=== PATIENT | male | born 1960 | race Caucasian/White ===

== ENCOUNTER 2024-10-02 11:59 | Emergency (ER) | payer MEDICARE, SELFPAY ==
--- NOTE | ~2024-10-02 | CT_ITS ---
EXAMINATION: CT cervical spine wo con DATE: 10/02/2024 14:13 INDICATION: Neck pain TECHNIQUE: Computed tomography (CT) of the cervical spine was performed without intravenous contrast. Automated exposure control and iterative reconstruction technique were employed. The dose-length pro duct was 540.97 mGy-cm. COMPARISON: 10/09/2016 FINDINGS: 13 degrees cervical dextrocurvature. Sagittal alignment is normal. Vertebral body heights are normal. No fracture. Mild osteoarthritis at the atlantoaxial articulation. Interval progression of now moder ate disc height loss at C5-C6 and mild disc height loss at C3-C4, C4-C5 and C6-C7. Mild emphysema and biapical pleural-parenchymal scarring. The following disc levels are specifically discussed: C2-C3: There is mild bilateral uncovertebral joint osteoarthritis. There is mild bilateral facet matt nt osteoarthritis. There is minimal bilateral neural foraminal stenosis. There is no central canal st enosis. C3-C4: Disc is mildly bulging. There is mild right and moderate left uncovertebral joint osteoarthrit is. There is mild bilateral facet joint osteoarthritis. There is mild right and moderate left neural foraminal stenosis. There is mild central canal stenosis. C4-C5: Disc is mildly bulging. There is mild right and mild to moderate left uncovertebral joint oste oarthritis. There is mild bilateral facet joint osteoarthritis. There is mild bilateral neural forami nal stenosis. There is mild central canal stenosis. C5-C6: Disc is bulging. There is severe left and moderate to severe right uncovertebral joint osteoar thritis. There is mild bilateral facet joint osteoarthritis. There is moderate bilateral neural laura inal stenosis. There is mild central canal stenosis. C6-C7: There is mild bilateral uncovertebral joint osteoarthritis. There is mild bilateral facet join t osteoarthritis. There is no neural foraminal stenosis. There is no central canal stenosis. C7-T1: There is mild right uncovertebral joint osteoarthritis. There is altered left and mild to mode rate right facet joint osteoarthritis. There is no neural foraminal stenosis. There is no central can al stenosis. IMPRESSION: 1. Interval progression of mild to moderate cervical spondylosis. Reviewed, dictated and finalized at location B. OR TACKER
--- NOTE | ~2024-10-02 | XR_ITS ---
EXAMINATION: XR chest 2V 10/02/2024 14:25 INDICATION: Syncope. Hypertension. PROCEDURE: 2 view chest COMPARISON: No prior studies for comparison. FINDINGS: The lungs are clear. The cardiomediastinal silhouette is within normal limits. There are no pleural effusions. There is no pneumothorax suspected. IMPRESSION: 1: NO ACUTE CARDIOPULMONARY DISEASE. Reviewed, dictated and finalized at location A. ICE UPHOLSTERER
--- NOTE | ~2024-10-02 | CT_ITS ---
EXAMINATION: CT brain wo con DATE: 10/02/2024 14:13 INDICATION: Headache TECHNIQUE: Computed tomography (CT) of the head was performed without intravenous contrast. Sagittal and coronal reconstructions were performed. The mA was adjusted according to patient size. Iterative reconstruction technique was employed. The dose-length product was 681.00 mGy-cm. COMPARISON: head CT dated 10/09/2016 FINDINGS: No acute intracranial hemorrhage, acute infarction or abnormal extra axial fluid collection. Ventricl es are normal and symmetric. No mass/mass effect. The orbits, paranasal sinuses and mastoid air cells are normal. IMPRESSION: 1. Normal aging brain. No acute intracranial process. Reviewed, dictated and finalized at location B. OR BOILER OPERATOR
--- OUTSIDE RECORDS SUMMARY | 2024-10-02 12:01 | XMS_ITS | Encounter Summary ---
Author Organization [facility] Facility Care Team Providers Care Natural Resource Economist Name Role Phone Rebel Jin MD Primary Care Provider [phone] Nai Ramirez RUBBER GOODS FINISHER Primary Care Provider [phone] Rahul Marshall MD Primary Care Provider [phone] Nai Ramirez RUBBER GOODS FINISHER Unavailable [phone] Rebel Jin MD Primary Care Provider [phone] Nai Ramirez RUBBER GOODS FINISHER Primary Care Provider [phone] Nai Ramirez RUBBER GOODS FINISHER Primary Care Provider [phone] Nai Ramirez RUBBER GOODS FINISHER Primary Care Provider [phone] Vinh Chicas MD Unavailable Encounter Details Date Type Department Care Team (Latest Contact Info) Description 01/10/2016 Orders Only [facility] CLINCONV ProviderHailee MD [address] [place] [address] Social History Tobacco Use Types Packs/Day Years Used Date Smoking Tobacco: Former Sex and Gender Information Value Date Recorded Sex Assigned at Not on file Legal Sex Male 3:57 PM HANDS PARTER Gender Identity Male 01/08/2020 9:10 AM CDT Sexual Orientation Straight 01/08/2020 9: 10 AM CDT documented as of this encounter Plan of Treatment Not on file documented as of this encounter Procedures Procedure Name Priority Date/Time Associated Diagnosis Comments SCAN - LABS 02/02/2016 12:00 AM CDT documented in this encounter Results * SCAN - LABS (02/02/2016 12:00 AM CDT) Narrative 02/02/2016 12:00 AM CDT Ordered by an unspecified provider. us Historical Provider Final Res ult documented in this encounter Visit Diagnoses Not on filedocumented in this encounter Additional Health Concerns Infection Onset Date Last Indicated Resolved Time COVID: Suspected 10/16/2022 10/16/2022 10/16/2022 4:55 PM HANDS PARTER documented as of this encounter Care Teams Natural Resource Economist Relationship Specialty Start Date End Date Rebel Jin MD [facility] [facility] [place] [address] PCP - General 01/20/18 10/14/18 Nai Ramirez NP [address] [place] [address] [place] [address] PCP - General 10/15/18 04/27/19 Rahul Marshall MD [address] [place] [address] [place] [address] PCP - General 04/28/19 05/14/19 Rebel Jin MD [address] [place] [address] [place] [address] PCP - General Internal Medicine 05/15/19 10/06/19 Nai Ramirez NP [address] [place] [address] [place] [address] PCP - General 10/31/19 04/17/23 Nai Ramirez NP [address] [place] [address] PCP - General 10/07/19 10/30/19 Nai Ramirez, RUBBER GOODS FINISHER [address] [place] [address] PCP - General Internal Medicine 04/18/23 Vinh Chicas MD [address] [place] [address] PCP - Cardiology Cardiovascular Disease 06/03/23 Nai Ramirez, RUBBER GOODS FINISHER [address] [facility] [place] [address] 04/28/19 documented as of this encounter
--- OUTSIDE RECORDS SUMMARY | 2024-10-02 12:01 | XMS_ITS | Encounter Summary ---
Author Organization [facility] Facility Care Team Providers Care Appliance Painter And Refinisher Name Role Phone Rebel Jin MD Primary Care Provider [phone] Nai Ramirez PUBLIC RECORDS RESEARCHER Primary Care Provider [phone] Rahul Marshall MD Primary Care Provider [phone] Nai Ramirez PUBLIC RECORDS RESEARCHER Unavailable [phone] Rebel Jin MD Primary Care Provider [phone] Nai Ramirez PUBLIC RECORDS RESEARCHER Primary Care Provider [phone] Nai Ramirez PUBLIC RECORDS RESEARCHER Primary Care Provider [phone] Nai Ramirez PUBLIC RECORDS RESEARCHER Primary Care Provider [phone] Vinh Chicas MD Unavailable Encounter Details Date Type Department Care Team (Latest Contact Info) Description 05/08/2018 Orders Only [facility] CLINCONV ProviderHailee MD [address] [place] [address] Social History Tobacco Use Types Packs/Day Years Used Date Smoking Tobacco: Former Sex and Gender Information Value Date Recorded Sex Assigned at Not on file Legal Sex Male 3:57 PM BROKE MAN Gender Identity Male 01/08/2020 9:10 AM CDT Sexual Orientation Straight 01/08/2020 9: 10 AM CDT documented as of this encounter Plan of Treatment Not on file documented as of this encounter Procedures Procedure Name Priority Date/Time Associated Diagnosis Comments PROCEDURE - RESULT 04/29/2018 12 :00 AM CDT documented in this encounter Results * PROCEDURE - RESULT (04/29/2018 12:00 AM CDT) Narrative 04/29/2018 12:00 AM CDT Ordered by an unspecified provider. us Historical Provider Final Res ult documented in this encounter Visit Diagnoses Not on filedocumented in this encounter Additional Health Concerns Infection Onset Date Last Indicated Resolved Time COVID: Suspected 10/16/2022 10/16/2022 10/16/2022 4:55 PM BROKE MAN documented as of this encounter Care Teams Appliance Painter And Refinisher Relationship Specialty Start Date End Date Rebel Jin MD [facility] [address] PCP - General 01/20/18 10/14/18 Nai Ramirez NP [address] [place] [address] [place] [address] PCP - General 10/15/18 04/27/19 Rahul Marshall MD [address] [place] [address] [place] [address] PCP - General 04/28/19 05/14/19 Rebel Jin MD [address] [place] [address] [place] [address] PCP - General Internal Medicine 05/15/19 10/06/19 Nai Ramirez NP [address] [place] [address] [place] [address] PCP - General 10/31/19 04/17/23 Nai Ramirez NP [address] [facility] [address] [place] [address] PCP - General 10/07/19 10/30/19 Nai Ramirez, PUBLIC RECORDS RESEARCHER [address] [place] [address] PCP - General Internal Medicine 04/18/23 Vinh Chicas MD [address] [place] [address] PCP - Cardiology Cardiovascular Disease 06/03/23 Nai Ramirez, PUBLIC RECORDS RESEARCHER [address] [facility] [place] [address] 04/28/19 documented as of this encounter
--- OUTSIDE RECORDS SUMMARY | 2024-10-02 12:01 | XMS_ITS | Encounter Summary ---
Author Organization [facility] Facility Care Team Providers Care Welfare Worker Name Role Phone Rebel Jin MD Primary Care Provider [phone] Nai Ramirez SEWING SUPERVISOR Primary Care Provider [phone] Rahul Marshall MD Primary Care Provider [phone] Nai Ramirez SEWING SUPERVISOR Unavailable [phone] Rebel Jin MD Primary Care Provider [phone] aNi Ramirez SEWING SUPERVISOR Primary Care Provider [phone] Nai Ramirez SEWING SUPERVISOR Primary Care Provider [phone] Nai Ramirez SEWING SUPERVISOR Primary Care Provider [phone] Vinh Chicas MD Unavailable Encounter Details Date Type Department Care Team (Latest Contact Info) Description 01/14/2018 Orders Only [facility] CLINCONV ProviderHailee MD [address] [place] [address] Social History Tobacco Use Types Packs/Day Years Used Date Smoking Tobacco: Former Sex and Gender Information Value Date Recorded Sex Assigned at Not on file Legal Sex Male 3:57 PM LAB SCIENTIST Gender Identity Male 01/08/2020 9:10 AM CDT Sexual Orientation Straight 01/08/2020 9: 10 AM CDT documented as of this encounter Plan of Treatment Not on file documented as of this encounter Procedures Procedure Name Priority Date/Time Associated Diagnosis Comments SCAN - PATHOLOGY 01/16/2018 12:0 0 AM CDT documented in this encounter Results * SCAN - PATHOLOGY (01/16/2018 12:00 AM CDT) Narrative 01/16/2018 12:00 AM CDT Ordered by an unspecified provider. us Historical Provider Final Res ult documented in this encounter Visit Diagnoses Not on filedocumented in this encounter Additional Health Concerns Infection Onset Date Last Indicated Resolved Time COVID: Suspected 10/16/2022 10/16/2022 10/16/2022 4:55 PM LAB SCIENTIST documented as of this encounter Care Teams Welfare Worker Relationship Specialty Start Date End Date Rebel Jin MD [facility] [place] [address] PCP - General 01/20/18 10/14/18 Nai Ramirez, SEWING SUPERVISOR [address] [place] [address] [place] [address] PCP - General 10/15/18 04/27/19 Rahul Marshall MD [facility] [facility] [place] [address] PCP - General 04/28/19 05/14/19 Rebel Jin MD [address] [place] [address] [place] [address] PCP - General Internal Medicine 05/15/19 10/06/19 Nai Ramirez NP [address] [place] [address] [place] [address] PCP - General 10/31/19 04/17/23 Nai Ramirez NP [address] [facility] [address] [place] [address] PCP - General 10/07/19 10/30/19 Nai Ramirez, SEWING SUPERVISOR [address] [place] [address] PCP - General Internal Medicine 04/18/23 Vinh Chicas MD [address] [place] [address] PCP - Cardiology Cardiovascular Disease 06/03/23 Nai Ramirez, SEWING SUPERVISOR [address] [facility] [place] [place] [address] 04/28/19 documented as of this encounter
--- OUTSIDE RECORDS SUMMARY | 2024-10-02 12:01 | XMS_ITS | Clinical Summary ---
Author Organization [facility] [employer] [employer] Address [address] [place] [address] Care Team Providers Care Oncology Navigator Name Role Phone Marlene Fox APRN-COUNTY DEMONSTRATOR Primary Care Provider Source Comments [facility] [employer] [employer],non-owned Affiliates and Associated Physician Practices is amultiple site organization consisting of ambulatory clinics and hospital sitesin [place], [place], [place] and [place]. This disclosure is being madepursuant to the Care Everywhere program and may not contain all information available regarding this patient. Last updated 18.[facility] [employer] Allergies No known active allergies Medications * Be aware that medications may not be up to date on this document. Alwaysverify current medications with the patient. Medication Sig Dispensed Refills Start Date End Date Status amitriptyline (ELAVIL) 25 MG tablet Take 1 (one) tablet by mouth DAILY 4 08/16/2016 Active diazePAM (VALIUM) 2 MG tablet 30 tablet 0 08/29/2016 Active zolpidem CR (Ambien Cr) 12.5 MG tablet Take 1 (one) tablet by mouth nightly as needed FOR SLEEP 11/23/2022 Active testosterone cypionate (Depo-Testosterone) 200 MG/ML injection Inject 1 mL into muscle 07/24/2022 Active QUEtiapine (SEROquel) 100 MG tablet Take 1 (one) tablet by mouth at bedtime 30 tablet 2 01/31/2023 Active pantoprazole EC (Protonix) 40 MG tablet Take 1 (one) tablet by mouth 2 times daily 03/08/2022 Active megestrol (Megace) 20 MG tablet Take 1 (one) tablet by mouth once daily 01/31/2023 Active Combivent Respimat 20-100 MCG/ACT inhaler INHALE 1 PUFF BY MOUTH 4 TIMES A DAY 01/11/2023 Active Vraylar 3 MG capsule 02/12/2023 Active acetaminophen (Tylenol) 500 MG capsule Take 2 (two) capsules by mouth every 6 hours 200 capsule 2 03/04/2023 Active oxyCODONE, immediate release, (Roxicodone) 5 MG tabletIndications:C losed fracture of left ankle, initial encounter Take 1 (one) tablet by mouth every 6 hours as needed for Pain 42 tablet 03/04/2023 Active apixaban (Eliquis) 2.5 MG tablet Take 1 (one) tablet by mouth 2 times daily 70 tablet 03/04/2023 Active Active Problems Problem Noted Date Diagnosed Date Occipital neuralgia 08/29/2016 Benign paroxysmal vertigo 08/29/2016 Headache 08/29/2016 Other spondylosis with radiculopathy, cervical r egion 08/29/2016 Other specified inflammatory spondylopathies, 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 Drug-induced headache, not e lsewhere classified, not intractable 08/29/2016 Immunizations Name Administration Dates Next Due TDAP (7yrs+) 02/22/2023 Social History Tobacco Use Types Packs/Day Years Used Date Smoking Tobacco: Some Days Cigarettes Tobacco Cessation:Ready to Q uit: Not Asked; Counseling Given: Not Answered Comments:5 cigarettes per day Alcohol Use Standard Drinks/Week Comments No 0 (1 standard drink = 0.6 oz pur e alcohol) Sex and Gender Information Value Date Recorded Sex Assigned at Male 02/25/2023 3:44 PM CDT Gender Identity Male 02/25/2023 3:44 PM CDT Sexual Orientation Not on file Last Filed Vital Signs Vital Sign Reading Time Taken Comments Blood Pressure 124/74 03/04/2023 11:10 AM CDT Pulse 57 03/04/2023 11:10 AM CDT Temperature 36.7 ??C (98 ??F) 03/04/2023 10:20 AM CDT Respiratory Rate 9 03/04/2023 11:10 AM CDT Oxygen Saturation 99% 03/04/2023 11:10 AM CDT Inhaled Oxygen Concentration - - Weight 74.4 kg (164 lb) 05/24/2023 10:51 AM CDT Height 193 cm (6' 4 ) 05/24/2023 10:51 AM CDT Body Mass Index 19.96 05/24/2023 10:51 AM CDT Plan of Treatment Health Maintenance Due Date Last Done Comments COLOGUARD (AGES 45-75) - COLON CA SCREENING 1958 COLON MONITORING 1958 COLONOSCOPY - COLON CA SCREENING 1958 CT COLONOGRAPHY - COLON CA SCREENING 1958 Colorectal Cancer Screening 1958 FIT - COLON CA SCREENING 1958 FLEX SIG - COLON CA SCREENING 1958 LIPID TESTING 1958 HEPATITIS C SCREENING 09/25/1976 PNEUMOCOCCAL VACCINE 50+ (1 of 2 - PCV) 1977 ZOSTER VACCINE (1 of 2) 2008 AAA SCREENING 2023 COVID-19 VACCINE (3 - season) 2024 12/11/2020, 11/20/2020 INFLUENZA VACCINE (#1) 2024 3, 07/18/2022, 07/04/2021, Additional history exists DEPRESSION SCREENING 09/02/2024 DTAP/TDAP/TD VACCINES (2 - Td or Tdap) 02/22/2033 02/22/2023 Respiratory Syncytial Virus (RSV) Vaccine Pt: or over 60 yrs (1 - 1-dose 75+ series) 2033 HEPATITIS B VACCINE Aged Out No longe r eligible based on patient's age to complete this topic HIB VACCINE Aged Out No longer eligi ble based on patient's age to complete this topic HPV VACCINE Aged Out No longer eligi ble based on patient's age to complete this topic MENINGOCOCCAL (Group B) VACCINE Aged Out No longer eligible based on patient's age to complete this topic MENINGOCOCCAL VACCINE Aged Out No grey viki eligible based on patient's age to complete this topic Medical Devices Implanted Type Area Diesel Engine Fitter Device Identifier Shelf Expiration Date Model / Serial / Lot Plate 5 Hl Fib Lt Dist Lat 99mm Contr Implanted:Qty: 1 on 03/04/2023 by Lyndsey Craig MD at [facility] Left: Ankle Synthes Usa .[id number] / / Screw 3.5mm 6mm 22mm 2.5mm Ft Slf-Tap Implanted:Qty: 1 on 03/04/2023 by Lyndsey Craig MD at [facility] Left: Ankle Synthes [employer]sa 204.822 / / Screw 2.7mm 2.1mm 20mm T8 Slf-Tap Lck Implanted:Qty: 2 on 03/04/2023 by Lyndsey Craig MD at [facility] Left: Ankle Synthes Usa 202.220 / / Screw 2.7mm 2.1mm 24mm T8 Slf-Tap Lck Implanted:Qty: 2 on 03/04/2023 by Lyndsey Craig MD at [facility] Left: Ankle Synthes Usa 202.224 / / Screw 3.5mm 6mm 18mm Ft [place] Slf-Tap Sm Implanted:Qty: 1 on 03/04/2023 by Lyndsey Craig MD at [facility] Left: Ankle Synthes Usa 204.818 / / Explanted Type Area Diesel Engine Fitter Device Identifier Shelf Expiration Date Model / Serial / Lot Screw 2.7mm 5mm 26mm T8 Slf-Tap Strdr Explanted:Qty: 1 on 03/04/2023 by Lyndsey Craig MD at [facility] Left: Ankle Synthes Usa 202.886 / / Screw 2.7mm 2.1mm 24mm T8 Slf-Tap Lck Explanted:Qty: 1 on 03/04/2023 by Lyndsey Craig MD at [facility] Left: Ankle Synthes Usa 202.224 / / Care Teams Oncology Navigator Relationship Specialty Start Date End Date Marlene Fox, RECRUITMENT COORDINATOR-COUNTY DEMONSTRATOR NPI: [id number] [place] [address] [place] [address] PCP - General 06/18/16
--- OUTSIDE RECORDS SUMMARY | 2024-10-02 12:01 | XMS_ITS | Encounter Summary ---
Author Organization [facility] Facility Care Team Providers Care Laminate Floor Installer Name Role Phone Rebel Jin MD Primary Care Provider [phone] Nai Ramirez SAFETY GROOVING MACHINE OPERATOR Primary Care Provider [phone] Rahul Marshall MD Primary Care Provider [phone] Nai Ramirez SAFETY GROOVING MACHINE OPERATOR Unavailable [phone] Rebel Jin MD Primary Care Provider [phone] Nai Ramirez SAFETY GROOVING MACHINE OPERATOR Primary Care Provider [phone] Nai Ramirez SAFETY GROOVING MACHINE OPERATOR Primary Care Provider [phone] Nai Ramirez SAFETY GROOVING MACHINE OPERATOR Primary Care Provider [phone] Vinh Chicas MD Unavailable Encounter Details Date Type Department Care Team (Latest Contact Info) Description 05/27/2018 Orders Only [facility]G CLINCONV ProviderHailee MD [address] [place] [address] Social History Tobacco Use Types Packs/Day Years Used Date Smoking Tobacco: Former Sex and Gender Information Value Date Recorded Sex Assigned at Not on file Legal Sex Male 3:57 PM DIE KEEPER Gender Identity Male 01/08/2020 9:10 AM CDT Sexual Orientation Straight 01/08/2020 9: 10 AM CDT documented as of this encounter Plan of Treatment Not on file documented as of this encounter Procedures Procedure Name Priority Date/Time Associated Diagnosis Comments SCAN - PATHOLOGY 06/02/2018 12:0 0 AM CDT documented in this encounter Results * SCAN - PATHOLOGY (06/02/2018 12:00 AM CDT) Narrative 06/02/2018 12:00 AM CDT Ordered by an unspecified provider. us Historical Provider Final Res ult documented in this encounter Visit Diagnoses Not on filedocumented in this encounter Additional Health Concerns Infection Onset Date Last Indicated Resolved Time COVID: Suspected 10/16/2022 10/16/2022 10/16/2022 4:55 PM DIE KEEPER documented as of this encounter Care Teams Laminate Floor Installer Relationship Specialty Start Date End Date Rebel Jin MD [address] [facility] [place] [address] PCP - General 01/20/18 10/14/18 Nai Ramirez, SAFETY GROOVING MACHINE OPERATOR [address] [place] [address] [place] [address] PCP - General 10/15/18 04/27/19 Rahul Marshall MD [facility] [place] [place] [address] PCP - General 04/28/19 05/14/19 Rebel Jin MD [address] [place] [address] [place] [address] PCP - General Internal Medicine 05/15/19 10/06/19 Nai Ramirez NP [address] [place] [address] [place] [address] PCP - General 10/31/19 04/17/23 Nai Ramirez NP [address] [facility] [address] [place] [address] PCP - General 10/07/19 10/30/19 Nai Ramirez, SAFETY GROOVING MACHINE OPERATOR [address] [place] [address] PCP - General Internal Medicine 04/18/23 Vinh Chicas MD [address] [place] [address] PCP - Cardiology Cardiovascular Disease 06/03/23 Nai Ramirez, SAFETY GROOVING MACHINE OPERATOR [address] [facility] [place] [address] 04/28/19 documented as of this encounter
--- OUTSIDE RECORDS SUMMARY | 2024-10-02 12:01 | XMS_ITS | Referral Summary ---
Author Organization [facility] Address [address] [place] [address] Care Team Providers Care Case Liner Name Role Phone Marlene Fox APRN-STORY READER Primary Care Provider Source Comments [facility],non-owned Affiliates and Associated Physician Practices is amultiple site organization consisting of ambulatory clinics and hospital sitesin [place], [place], [place] and [place]. This disclosure is being madepursuant to the Care Everywhere program and may not contain all information available regarding this patient. Last updated 18.[facility] [employer] Allergies No known active allergies Medications * [...] 05/24/2023 10:51 AM CDT Plan of Treatment Not on file Medical Devices Implanted Type Area Patient Financial Rep Device Identifier Shelf Expiration Date Model / Serial / Lot Plate 5 Hl Fib Lt Dist Lat 99mm Contr Implanted:Qty: 1 on 03/04/2023 by Lyndsey Craig MD at [facility] Left: Ankle Synthes Usa [id number] / / Screw 3.5mm 6mm 22mm 2.5mm Ft Slf-Tap Implanted:Qty: 1 on 03/04/2023 by Lyndsey Craig MD at [facility] Left: Ankle Synthes Usa 204.822 / / Screw 2.7mm 2.1mm 20mm T8 Slf-Tap Lck Implanted:Qty: 2 on 03/04/2023 by Lyndsey Craig MD at [facility] Left: Ankle Synthes Usa 202.220 / / Screw 2.7mm 2.1mm 24mm T8 Slf-Tap Lck Implanted:Qty: 2 on 03/04/2023 by Lyndsey Craig MD at [facility] Left: Ankle Synthes Usa 202.224 / / Screw 3.5mm 6mm 18mm Ft [place] Slf-Tap Sm Implanted:Qty: 1 on 03/04/2023 by Lyndsey Craig MD at [facility] Left: Ankle Synthes Usa 204.818 / / Explanted Type Area Patient Financial Rep Device Identifier Shelf Expiration Date Model / Serial / Lot Screw 2.7mm 5mm 26mm T8 Slf-Tap Strdr Explanted:Qty: 1 on 03/04/2023 by Lyndsey Craig MD at [facility] Left: Ankle Synthes Usa 202.886 / / Screw 2.7mm 2.1mm 24mm T8 Slf-Tap Lck Explanted:Qty: 1 on 03/04/2023 by Lyndsey Craig MD at [facility] Left: Ankle Synthes Usa 202.224 / / Care Teams Case Liner Relationship Specialty Start Date End Date Marlene Fox, NUCLEAR AUXILIARY OPERATOR-STORY READER [facility] [facility] [place] [address] PCP - General 06/18/16
--- OUTSIDE RECORDS SUMMARY | 2024-10-02 12:01 | XMS_ITS | Encounter Summary ---
Author Organization [facility] Care Team Providers Care Wrapper Dipper Name Role Phone Rebel Jin MD Primary Care Provider [phone] Nai Ramirez COMMUNICATION SPECIALIST Primary Care Provider [phone] Rahul Marshall MD Primary Care Provider [phone] Nai Ramirez COMMUNICATION SPECIALIST Unavailable [phone] Rebel Jin MD Primary Care Provider [phone] Nai Ramirez COMMUNICATION SPECIALIST Primary Care Provider [phone] Nai Ramirez COMMUNICATION SPECIALIST Primary Care Provider [phone] Nai Ramirez COMMUNICATION SPECIALIST Primary Care Provider [phone] Vinh Chicas MD Unavailable Encounter Details Date Type Department Care Team (Latest Contact Info) Description 05/20/2018 Orders Only [facility] CLINCON[facility] ProviderHailee MD [address] [place] [id number] Social History Tobacco Use Types Packs/Day Years Used Date Smoking Tobacco: Former Sex and Gender Information Value Date Recorded Sex Assigned at Not on file Legal Sex Male 3:57 PM SHOE STAINER Gender Identity Male 01/08/2020 9:10 AM CDT Sexual Orientation Straight 01/08/2020 9: 10 AM CDT documented as of this encounter Plan of Treatment Not on file documented as of this encounter Procedures Procedure Name Priority Date/Time Associated Diagnosis Comments COLONOSCOPY - SCAN 05/20/2018 12 :00 AM CDT documented in this encounter Results * COLONOSCOPY - SCAN (05/20/2018 12:00 AM CDT) Narrative 05/20/2018 12:00 AM CDT Ordered by an unspecified provider. us Historical Provider Final Res ult documented in this encounter Visit Diagnoses Not on filedocumented in this encounter Additional Health Concerns Infection Onset Date Last Indicated Resolved Time COVID: Suspected 10/16/2022 10/16/2022 10/16/2022 4:55 PM SHOE STAINER documented as of this encounter Care Teams Wrapper Dipper Relationship Specialty Start Date End Date Rebel Jin MD [email or web address] [place] [address] PCP - General 01/20/18 10/14/18 Nai Ramirez NP [address] [place] [address] [place] [address] PCP - General 10/15/18 04/27/19 Rahul Marshall MD [address] [place] [address] [place] [address] PCP - General 04/28/19 05/14/19 Rebel Jin MD [address] [place] [address] [place] [address] PCP - General Internal Medicine 05/15/19 10/06/19 Nai aRmirez NP [address] [place] [address] [place] [address] PCP - General 10/31/19 04/17/23 Nai Ramirez NP [address] [facility] [address] [place] [address] [place] [id number] PCP - General 10/07/19 10/30/19 Nai Ramirez, COMMUNICATION SPECIALIST [address] [place] [address] PCP - General Internal Medicine 04/18/23 Vinh Chicas MD [address] [place] [address] PCP - Cardiology Cardiovascular Disease 06/03/23 Nai Ramirez, COMMUNICATION SPECIALIST [address] [facility] [place] [address] 04/28/19 documented as of this encounter
--- OUTSIDE RECORDS SUMMARY | 2024-10-02 12:01 | XMS_ITS | Encounter Summary ---
Author Organization [facility] Healthcare Address [address] [place] [address] Care Team Providers Care Herd Tester Name Role Phone Nai Ramirez NP Unavailable [phone] Nai Ramirez NP Primary Care Provider [phone] Vinh Chicas MD Unavailable Reason for Visit * Reason Onset Date Comments Headache 10/01/2024 Encounter Details Date Type Department Care Team (Late st Contact Info) Description 10/01/2024 Nurse Triage [facility] Internal Medicine at [place] [address] [place] [address] Nai Ramirez NP [address] [address] [place] [address] Social History Tobacco Use Types Packs/Day Years Used Date Smoking Tobacco: Former Cigarettes 0.5 40.8 S tarted: 04/24/2020 Smokeless Tobacco: Never Comments:pt started back smo bryant a month ago Alcohol Use Standard Drinks/Week Comments Never 0 (1 standard drink = 0.6 oz pur e alcohol) Social Connection and Isolation Panel [NHANES] A nswer Date Recorded In a typical week, how many times do you talk on the phone with family, friends, or neighbors? Three times a week 03/18/2023 How often do you get togethe r with friends or relatives? Twice a week 03/18/2023 How often do you attend chur ch or restorationist services? Never 03/18/2023 Do you belong to any clubs o r organizations such as judaism groups, unions, fraternal or athletic groups, or school groups? No 03/18/2023 How often do you attend meet ings of the clubs or organizations you belong to? Never 03/18/2023 Are you , , di vorced, , never , or living with a partner? 03/18/2023 AUDIT-C Answer Date Recorded Q1: How often do you have a drink containing alcohol? Never 08/08/2023 Q2: How many drinks containi ng alcohol do you have on a typical day when you are drinking? Patient does not drink Q3: How often do you have si x or more drinks on one occasion? Never 08/08/2023 Overall Financial Resource Strain (CARDIA) Answe r Date Recorded How hard is it for you to pa y for the very basics like food, housing, medical care, and heating? Somewhat hard 03/18/2023 PHQ-2 Answer Date Recorded PHQ-2 Total Score (If total score is 3 or more points, staff should administer the PHQ-9) 0 08/25/2024 Hunger Vital Sign Answer Date Recorded Within the past 12 months, y ou worried that your food would run out before you got the money to buy more. Never true 03/18/20 23 Within the past 12 months, t he food you bought just didn't last and you didn't have money to get more. Never true 03/18/2023 PRAPARE - Transportation Answer Date Re corded In the past 12 months, has l ack of transportation kept you from medical appointments or from getting medications? No 03/02 In the past 12 months, has l ack of transportation kept you from meetings, work, or from getting things needed for daily living? No 03/18/2023 Housing Stability Vital Sign Answer Francois e Recorded In the last 12 months, was t here a time when you were not able to pay the mortgage or rent on time? No 03/18/2023 In the last 12 months, how many places have you lived? 1 03/18/2023 In the last 12 months, was t here a time when you did not have a steady place to sleep or slept in a fpc (including now)? No 03/18/2023 Personal Safety Answer Date Recorded Have you ever been in or are you currently in a harmful physical or emotional relationship or is someone making you feel afraid or unsafe? Denies 08/08/2023 Sex and Gender Information Value Date Recorded Sex Assigned at Not on file Legal Sex Male 3:57 PM DATABASE CONSULTANT Gender Identity Male 01/08/2020 9:10 AM CDT Sexual Orientation Straight 01/08/2020 9: 10 AM CDT documented as of this encounter Miscellaneous Notes * Telephone Encounter - Herminia Jeffries RN - 10/01/2024 9:44 AM CST Patient reports BOSS/ dizziness and nausea for several weeks. Pt reports sudden intense BOSS after laying under his car almost 2 weeks ago and then also became dizzy and nauseated. Pt reports symptoms continued and he was seen in [facility] on 09/23. RX for Meclizine and instructed to use Tylenol and Ibuprofen,Pt reports BOSS not improving, BOSS severe yesterday, Mod to severe today. He had to go to bed after work yesterday. Pt feel like he walks off balance but the dizziness is a little better than it had been. Also repots his lower neck hurts. Pain with touching chin to neck. Neck hurts at the bottom. Lastweek he saw gold floaters in in the periphery of his right eye. Pt states Tylenol and Ibuprofen arenot working. pt hesitant to go sit in the ED for 5 hours . Pt did have a history of similar BOSS / symptoms years ago but it never was determined what the issue was and symptoms resolved. Provider contacted via secure chat for ED disposition consult. Recommendation from provider:No response/sent to ED Attempted to call pt back. NA, LM that RN will try to reach him again soon. Reached pt and advised ED. Pt is agreeable and will go now. Pt to not drive self if dizzy. Will forward as FYI Reason for Disposition Patient sounds very sick or weak to the triager Protocols used: [id number] BASE CONSULTANT * Telephone Encounter - Herminia Jeffries RN - 10/01/2024 9:35 AM CST Regarding: massive headache, nausea and lower back pain, real dizzy when he lays down feeling of almost passing ----- Message from Venecia Marquez sent at 10/01/2024 9:33 AM DATABASE CONSULTANT ----- Symptom Based Call Chief Complaint(s): massive headache, nausea and lower back pain, real dizzy when he lays down (feeling of almost passing out) Duration: last week started back up again What type of symptom(s) is the patient experiencing? Red Flag. Is the patient concerned they are experiencing a medical emergency requiring an ambulance? No Additional Comments: Patient stated he use to receive nerve blocks to prevent him from getting the headaches, patient stated he was underneath a car laying down when he became dizzy, please advise. Does message need to be routed? Yes-Action Needed BASE CONSULTANT documented in this encounter Plan of Treatment Not on file documented as of this encounter Visit Diagnoses Not on filedocumented in this encounter Care Teams Herd Tester Relationship Specialty Start Date End Date Nai Ramriez NP [address] [place] [address] PCP - General Internal Medicine 04/18/23 Vinh Chicas MD [address] [place] [address] PCP - Cardiology Cardiovascular Disease 06/03/23 Nai Ramirez NP 04/28/19 documented as of this encounter
--- OUTSIDE RECORDS SUMMARY | 2024-10-02 12:01 | XMS_ITS | Clinical Summary ---
Author Organization [place] [id number] Address [facility] [place] [address] Care Team Providers Care Human Services Assistant Name Role Phone Nai Ramirez NP Unavailable [phone] Nai Ramirez NP Primary Care Provider [phone] Vinh Chicas MD Unavailable Allergies No known active allergies Medications cyclobenzaprine (FLEXERIL) 10 mg tablet Take 1 tablet (10 mg total) by mouth 2 (two) times a day as needed for muscle spasms 20 tablet 12/13/19 22 Active aspirin 81 mg chewable tablet Take 1 tablet (81 mg total) by mouth daily 30 tablet 03/21/20 23 Active ipratropium-alb uteroL (Combivent Respimat) 20-100 mcg/actuation inhalerIndicati ons:Chronic obstructive pulmonary disease, unspecified COPD type (HCC) INHALE 1 PUFF BY MOUTH 4 TIMES A DAY 4 g 3 04/10/20 23 Active buPROPion XL (WELLBUTRIN XL) 300 mg 24 hr tabletIndicatio ns:Mild episode of recurrent major depressive disorder (HCC) Take 1 tablet (300 mg total) by mouth every morning 90 tablet 1 06/17/[address] (PROTONIX) 40 mg EC tablet Take 1 tablet (40 mg total) by mouth 2 (two) times a day 60 tablet 3 02/17/20 24 Active acyclovir (ZOVIRAX) 800 mg tabletIndicatio ns:Herpes zoster without complication TAKE 1 TABLET BY MOUTH 5 TIMES A DAY FOR 7 DAYS. 35 tablet 03/16/20 24 Active QUEtiapine (SEROquel) 50 mg tabletIndicatio ns:Primary insomnia TAKE 1 TABLET BY MOUTH EVERY DAY AT NIGHT 90 tablet 1 06/01/20 24 Active varenicline tartrate (CHANTIX) 1 mg tablet TAKE 1 TABLET (1 MG TOTAL) BY MOUTH 2 (TWO) TIMES A DAY. TAKE WITH FULL GLASS OF WATER. 180 tablet 1 08/05/20 24 Active sertraline (ZOLOFT) 100 mg tabletIndicatio ns:Anxiety Take 1 tablet (100 mg total) by mouth daily 90 tablet 1 09/03/19 25 026 Active atorvastatin (LIPITOR) 10 mg tablet TAKE 1 TABLET BY MOUTH EVERY DAY 90 tablet 09/17/19 25 Active ALPRAZolam (XANAX) 1 mg tablet TAKE 1 TABLET BY MOUTH EVERY DAY AT BEDTIME NEEDED FOR ANXIETY 06/21/20 24 Active megestroL (MEGACE) 20 mg tablet Take 1 tablet (20 mg total) by mouth daily 08/20/20 24 Active meclizine (ANTIVERT) 25 mg tabletIndicatio ns:Dizziness Take 1 tablet (25 mg total) by mouth 3 (three) times a day as needed for dizziness 30 tablet 09/23/19 25 Active meclizine (ANTIVERT) 25 mg tablet 1 tablet (25 mg total) 3 (three) times a day 05/15/20 16 025 Discontinued megestroL (MEGACE) 40 mg tabletIndicatio ns:Decreased appetite Take 1 tablet (40 mg total) by mouth daily 90 tablet 1 05/08/20 24 025 Discontinued atorvastatin (LIPITOR) 10 mg tablet Take 1 tablet (10 mg total) by mouth daily 90 tablet 06/22/20 24 025 Discontinued ALPRAZolam (XANAX) 2 mg tabletIndicatio ns:Primary insomnia Take 1 tablet (2 mg total) by mouth nightly as needed for anxiety or sleep 90 tablet 08/04/20 24 025 Discontinued amoxicillin-cla vulanate (AUGMENTIN) 875-125 mg per tabletIndicatio ns:Acute recurrent maxillary sinusitis Take 1 tablet by mouth 2 (two) times a day for 10 days 20 tablet 08/25/20 24 025 sildenafiL (VIAGRA) 100 mg tabletIndicatio ns:Drug-induced erectile dysfunction Take 1 tablet (100 mg total) by mouth as needed for erectile dysfunction 12 tablet 3 08/25/20 24 025 Active Problems Problem Noted Date Diagnosed Date Drug-induced erectile dysfunction 08/27/2024 Overview (08/27/2024): Start Viagra as needed and directed Acute recurrent maxillary sinusitis 08/27/2024 Overview (08/27/2024): Take antibiotics as directed. Notify the office without improvement of symptoms Chest pain 06/25/2024 Stress 05/15/2024 Precordial pain 05/05/2024 QUEZADA (dyspnea on exertion) 05/05/2024 Dizziness 05/05/2024 Primary hypertension 04/10/2024 Mixed hyperlipidemia 04/10/2024 Herpes zoster without complication 12/24/2023 BPH associated with nocturia 07/01/2023 Bradycardia 06/10/2023 Abnormal stress test 06/10/2023 BPH with obstruction/lower urinary tract symptom s 05/09/2023 Mild episode of recurrent major depressive disor noy 04/22/[address] 04/18/2023 Acute renal failure, unspecified acute renal cedric lure type 03/17/2023 Smoker 01/17/2023 Chronic obstructive pulmonar y disease, unspecified COPD type 01/17/2023 Unspecified mood (affective) disorder 01/17/2023 Flu vaccine need 07/18/2022 Acute ear pain, bilateral 04/18/2022 Weight loss 01/25/2022 Lung nodule < 6cm on CT 01/25/2022 Muscle spasms of neck 01/25/2022 Left groin mass 07/04/2021 Acute recurrent frontal sinusitis 01/11/2021 Overview (01/11/2021): Antibiotics and steroids as directed Low testosterone in male 01/02/2021 Overview (01/02/2021): Have lab work completed prior to next visit BMI 23.0-23.9, adult 09/27/2020 Inguinal pain 09/27/2020 Periodic limb movement disorder 05/25/2020 Assessment & Plan (05/25/2020 2:01 PM CDT): The patient states his periodic limb movement disorder is only occasionally waking him at night and for the most part is asymptomatic. Tobacco abuse 05/25/2020 Assessment & Plan (05/25/2020 2:05 PM CDT): The patient was educated on the goal of decreasing the amount of cigarette use per day with ultimate goal of quitting. The patient was also educated on the risk of continued smoking. Neck pain 04/05/2020 Screening for thyroid disorder 12/10/2019 Epigastric pain 08/11/2019 Secondary adhesive capsulitis of left shoulder 1 09/05/2018 Overview (07/20/2019): July 13, 2019 manipulation and injection under anesthesia Assessment & Plan (01/12/2020 11:05 AM CDT): Doing well. Not 100%. Went through formal physical therapy. Range of motion is good. Not taking any medications. Needs to work on strength. Follow up in 6 weeks and anticipate full release Assessment & Plan (07/20/2019 3:48 PM PAVING BED MAKER): Marked improvement in range of motion. Marked improvement in pain. However, developed muscle spasms. Anxious to get back to normal activities. Wants to continue physical therapy for strengthening. Assessment & Plan (07/06/2019 8:44 AM PAVING BED MAKER): Patient has failed nonsteroidal anti-inflammatories and formal physical therapy. Anxious to get the range of motion back. We discussed the risks, benefits and alternatives. Anticipate manipulation and injection under anesthesia Decreased appetite 06/11/2019 Assessment & Plan (04/10/2024 1:46 PM CDT): This is a significant, separately identifiable problem that was evaluated and managed on the same day as the wellness exam History of open reduction an d internal fixation (ORIF) procedure 02/09/2019 Overview (03/13/2019): March 04, 2019 Assessment & Plan (03/02/2020 11:22 AM CDT): Patient has met maximum medical improvement. Full release to work. No restrictions. Follow-up as needed. Assessment & Plan (01/12/2020 11:05 AM CDT): Strength not back to 100%. Begin work hardening, follow-up in 6 weeks and anticipate full release without restriction. Assessment & Plan (10/14/2019 10:05 AM PAVING BED MAKER): Begin work hardening strength training. Follow up in 6 weeks. Assessment & Plan (08/31/2019 1:28 PM PAVING BED MAKER): Formal physical therapy with strengthening for 6 more weeks. Patient will follow up in 6 weeks. Assessment & Plan (07/20/2019 3:48 PM PAVING BED MAKER): Formal physical therapy with strengthening Assessment & Plan (07/06/2019 8:44 AM PAVING BED MAKER): Not making progress with formal physical therapy and nonsteroidal anti-inflammatories. Assessment & Plan (06/10/2019 2:01 PM CDT): Begin a Medrol Dosepak, nonsteroidal anti-inflammatories and aggressive physical therapy. Follow up in 6 weeks. Assessment & Plan (05/17/2019 4:23 PM CDT): Marked increased pain and loss of motion after physical therapy 3 weeks ago. Patient is quite frustrated. MR arthrogram for evaluation. Meloxicam 15 mg once daily. Follow-up after MR arthrogram Assessment & Plan (04/10/2019 10:33 AM CDT): Discontinue the sling. Begin formal physical therapy with active range of motion. Follow-up in 6 weeks for repeat evaluation. Refill pain medications. Assessment & Plan (03/13/2019 12:59 PM CDT): Continue shoulder CPM machine as directed. Follow-up in 4 weeks for repeat evaluation. No active range of motion to AB duction of the left shoulder. Refill pain medications. Follow-up in 4 weeks. Assessment & Plan (02/09/2019 2:40 PM CDT): We discussed the risks, benefits and alternatives. Patient has failed conservative therapy consisting of nonsteroidal anti-inflammatories, steroid injection as well as multiple oral steroids and therapy. Patient would like to proceed with rotator cuff repair left shoulder. We discussed the risks, benefits and alternatives including not limited to infection, neurovascular compromise, stiffness, persistent pain, need for further surgery, failure of the repair or incomplete repair. All questions are answered and informed consent is obtained. OA left shoulder-moderate glenohumeral joint, mi ld AC joint 01/14/2019 Assessment & Plan (02/09/2019 2:41 PM CDT): No surgical intervention needed for the osteoarthritis. However with the significant amount of steroid use there is a concern for avascular necrosis in the future Assessment & Plan (01/27/2019 4:50 PM CDT): We discussed the risks, benefits and alternatives. He has tried meloxicam 15 mg without any significant relief. He has been on tramadol as well. He has been chronic neck pain and has seen Dr. uPente for multiple injections. After failing conservative treatment would recommend MRI of the left shoulder for further evaluation. Follow-up after the MRI. Impingement syndrome of left shoulder 01/14/2019 Assessment & Plan (01/27/2019 4:53 PM CDT): Failing conservative treatment. Recommend MRI. Follow-up after MRI. . Meloxicam and begin diclofenac 75 mg twice daily. Allergic rhinitis 07/21/2018 Anxiety 07/02/2018 Sensorineural hearing loss ( SNHL) of right ear with unrestricted hearing of left ear 06/23/2018 Unilateral vestibular schwannoma 06/23/2018 GERD without esophagitis 06/20/2018 Carpal tunnel syndrome of left wrist 04/28/2018 Abnormal findings on esophagogastroduodenoscopy (EGD) 04/07/2018 Esophageal stricture 04/07/2018 Gastritis without bleeding 04/07/2018 History of colon polyps 04/07/2018 Melena 04/07/2018 Cubital tunnel syndrome on left 12/02/2017 Mass of left wrist 12/02/2017 Insomnia 11/15/2017 Assessment & Plan (04/10/2024 1:47 PM CDT): This is a significant, separately identifiable problem that was evaluated and managed on the same day as the wellness exam Assessment & Plan (05/25/2020 2:01 PM CDT): The patient states that he will easily fall asleep at night but he is up shortly thereafter and has trouble going back to sleep. The patient is currently going to utilize sleep hygiene and pain management for insomnia.. Fracture of unspecified carp al bone, left wrist, initial encounter for closed fracture 09/23/2017 Testicular hypofunction 07/31/2017 CARI (obstructive sleep apnea) 05/17/2017 Assessment & Plan (07/06/2020 1:32 PM PAVING BED MAKER): The patient was giving a different style of mask. The patient has getting his supplies at [facility] past. His CPAP is set at 5-15 cm water pressure. Assessment & Plan (05/25/2020 2:03 PM CDT): The patient was encouraged to restart CPAP therapy with an auto titrating CPAP set at 5-15 cm water pressure. New supplies were offered to the patient however he was unsure of what his DME company was. The patient also is educated on the inspire procedure to help with sleep apnea. The patient is unable to use an oral appliance due to dentures. The patient was educated about benefits versus risk of not using CPAP therapy such as cardiovascular issues, arrhythmias, stroke, pulmonary hypertension, and . The patient states that he will restart CPAP therapy. Benign paroxysmal vertigo 08/29/2016 Occipital neuralgia 08/29/2016 Other specified inflammatory spondylopathies, 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 Other spondylosis with radiculopathy, cervical r egion 08/29/2016 Persistent headaches 05/24/2016 Chronic right-sided low back pain with right-bertha ed sciatica 01/05/2016 Cellulitis 01/05/2016 Snoring 01/05/2016 Annular pancreas 04/12/2014 Resolved Problems Problem Noted Date Diagnosed Date Resolved Date BMI 27.0-27.9,adult 08/11/2019 01/18/20 23 Encounters Date Type Department Care Team Description 10/01/2024 Nurse Triage [facility] [place] [address] [place] [address] Rd [address] [place] [address] Dominga Wolfe, DARIN 10/01/2024 Nurse Triage [facility] Internal Medicine at [address] [place] [address] Nai Ramirez NP 09/23/2024 3:00 PM PAVING BED MAKER Office Visit [facility] at [address] [address] Deirdre Clark NP Generalized headache (Primary Dx); Dizziness 09/22/2024 Nurse Triage [facility] [place] [address] [place] [address] Rd [address] [place] [address] Nai Ramirez NP 09/03/2024 Telephone [facility] Internal Medicine at [address] [place] [address] Nai Ramirez NP Med Refill 08/25/2024 8:30 AM PAVING BED MAKER Office Visit [facility] Internal Medicine at [address] [place] [address] Nai Ramirez NP Acute recurrent maxillary sinusitis (Primary Dx); BMI 23.0-23.9, adult; Drug-induced erectile dysfunction 07/20/2024 8:26 AM PAVING BED MAKER - 07/20/2024 11:59 PM PAVING BED MAKER Hospital Encounter [facility] [address] [place] [address] Rn, Mhb Rad QUEZADA (dyspnea on exertion); Chest pain, unspecified type; Precordial pain Discharge Disposition: Discharge to home or self care 07/17/2024 Telephone [facility] Cardiology [address] [facility] [address] [place] [address] Tami Corona NP 07/11/2024 7:10 AM PAVING BED MAKER Lab [facility] [address] [place] [address] QUEZADA (dyspnea on exertion); Abnormal stress test; Bradycardia; Primary hypertension; Mixed hyperlipidemia 07/10/2024 3:30 PM PAVING BED MAKER Office Visit [facility] [place] [address] [place] [address] Rd [address] [place] [address] Nai Ramirez NP Primary insomnia (Primary Dx); BMI 21.0-21.9, adult 07/10/2024 Telephone [facility] [place] [address] [place] [address] [address] [place] [address] Nai Ramirez NP Medical Question/Miscellaneous from Last 3 Months Immunizations Name Administration Dates Next Due Influenza, Quadrivalent, Spl it, Preservative Free, Intramuscular 05/30/2023,07/18/2022,07/04/2021,06/10,05/24/2019 Influenza, Trivalent, High D ose, Split, Preservative Free, Intramuscular 06/05/2024 Pneumococcal Conjugate Pcv20 08/25/2024 Tdap 02/22/2023 Surgical History Surgery Date Site/Laterality Comments CARPAL TUNNEL RELEASE 09/02/2017 - 09/01/2018 Left HERNIA REPAIR 09/02/2014 - 09/01/2015 ingunial hernia BACK SURGERY 09/02/2000 - 09/01/2001 Low back L5 - S1 fusion SPINE SURGERY SHOULDER OPEN ROTATOR CUFF REPAIR 03/04/2019 Left CLOSED MANIPULATION SHOULDER 07/13/2019 Left ANKLE FRACTURE SURGERY Left WRIST FRACTURE SURGERY 09/02/2016 - 09/01/2017 Left Medical History Medical History Date Comments Insomnia Sleep difficulties cari Anxiety Depression Arthritis RA Gastric reflux Migraines occassionall sea sonl/allergy related headsches also Hiatal hernia states multiple hernia surgeries Osteoarthritis Rheumatoid arthritis (HCC) GERD (gastroesophageal reflux disease) HL (hearing loss) mild, no heari ng aides required Wears glasses No natural teeth has dentures, d o not fit, needs repaired Abnormal stress test 06/10/2023 High cholesterol AK, old 06/17/2023 patient states gary cid was told he had an old AK, he was not aware, not symptomatic Bilateral hydronephrosis noted i n physicians record Cooper catheter in place cath dada rios fauzia on 06/07/23-failed voiding trials Family History Medical History Relation Name Comments Cancer Father Cancer Maternal Grandfather Colon cancer Maternal Grandmother Skin cancer Mother Lung cancer Other 1 Breast cancer Other 2 Cancer Paternal Grandmother Heart disease Sister 1 Bipolar disorder Sister 2 Relation Name Status Comments Father Maternal Grandfather Maternal Grandmother Mother Other 1 Other 2 Paternal Grandmother Sister 1 Sister 2 Social History Tobacco Use Types Packs/Day Years Used Date Smoking Tobacco: Former Cigarettes 0.5 40.8 S tarted: 04/24/2020 Smokeless Tobacco: Never Tobacco Cessation:Counseling Given: Not Answered Comments:pt started back smoking a month ago Alcohol Use Standard Drinks/Week [...] often do you attend chur ch or zoroastrian services? Never 03/18/2023 Do you belong to any clubs o r organizations such as yazidi groups, unions, fraternal or athletic groups, or [...] place to sleep or slept in a prison (including now)? No 03/18/2023 Personal Safety Answer Date Recorded Have you ever been in or are you currently in a harmful physical or emotional relationship or is someone making you feel afraid or unsafe? Denies 08/08/2023 Sex and Gender Information Value Date Recorded Sex Assigned at Not on file Legal Sex Male 3:57 PM PAVING BED MAKER Gender Identity Male 01/08/2020 9:10 AM CDT Sexual Orientation Straight 01/08/2020 9: 10 AM CDT Obstetrics History Last Filed Vital Signs Vital Sign Reading Time Taken Comments Blood Pressure 144/82 09/23/2024 3:06 PM PAVING BED MAKER Pulse 57 09/23/2024 3:06 PM PAVING BED MAKER Temperature 36.8 ??C (98.2 ??F) 09/23/2024 3:06 PM CS T Respiratory Rate 14 09/23/2024 3:06 PM PAVING BED MAKER Oxygen Saturation 96% 09/23/2024 3:06 PM PAVING BED MAKER Inhaled Oxygen Concentration - - Weight 86.2 kg (190 lb) 09/23/2024 3:06 PM PAVING BED MAKER Height 193 cm (6' 4 ) 09/23/2024 3:06 PM PAVING BED MAKER Body Mass Index 23.13 09/23/2024 3:06 PM PAVING BED MAKER Plan of Treatment Health Maintenance Due Date Last Done Comments Hepatitis B Screening 1978 Zoster Vaccine (1 of 2) 1979 Covid-19 Vaccine (3 - Pfizer risk series) 01/08/2021 12/11/2020, 11/20/2020 Abdominal Aortic Aneurysm (A AA) Screen 2023 03/17/2023, 02/22/2023, 01/28/2018, Additional history exists Well Visit 65+ 04/10/2025 04/10/2024, 07/18/2022 Fall Risk Assessment 06/05/2025 06/05/2024, 04/10/2024, 02/17/2024, Additional history exists Depression Screening 08/25/2025 08/25/2024, 07/10/2024, 06/05/2024, Additional history exists Prostate Cancer Screening-PSA 04/20/2026, 02/05/2022, 06/14/2020, Additional history exists Colon Cancer Screening-Colonoscopy 01/15/2028 01/14/2018 DTaP/Tdap/Td Vaccine (2 - Td or Tdap) 02/22/2033 02/22/2023 Colon Cancer Screening-CT Colonography Discontinued 01/14/2018 Colon Cancer Screening-DNA Stool Discontinued 01/15/20 18 Colon Cancer Screening-FIT Discontinued 01/14/2018 Colon Cancer Screening-Sigmoidoscopy Discontinued 01/14/2018 Hepatitis C Screening Completed 12/22/2019, 020 Influenza Vaccine Completed 06/05/2024, , 07/18/2022, Additional history exists Pneumococcal vaccine 65+ Completed 08/25/2024 Medical Devices Implanted Type Area Button Tufting Machine Operator Device Identifier Shelf Expiration Date Model / Serial / Lot [id number] Cage Back Pins And Plate Left: Wrist Plate Left: Ankle Procedures Procedure Name Priority Date/Time Associated Diagnosis Comments CTA HEART W CALCIUM SCORING Schedule Routine, Read Routine (OP Routine) 07/20/2024 9:51 AM PAVING BED MAKER QUEZADA (dyspnea on exertion) Chest pain, unspecified type Precordial pain EGFR Routine 07/11/2024 7:25 AM PAVING BED MAKER QUEZADA (dyspnea on exertion) Abnormal stress test Bradycardia Primary hypertension Mixed hyperlipidemia DIFFERENTIAL AUTO Routine 07/11/2024 7:2 5 AM PAVING BED MAKER QUEZADA (dyspnea on exertion) Abnormal stress test Bradycardia Primary hypertension Mixed hyperlipidemia CBC WITH AUTO DIFFERENTIAL Routine 07/11/2024 7:25 AM PAVING BED MAKER QUEZADA (dyspnea on exertion) Abnormal stress test Bradycardia Primary hypertension Mixed hyperlipidemia COMPREHENSIVE METABOLIC PANEL Routine 07/11/2024 7:25 AM PAVING BED MAKER QUEZADA (dyspnea on exertion) Abnormal stress test Bradycardia Primary hypertension Mixed hyperlipidemia LIPID PANEL Routine 07/11/2024 7:25 AM PAVING BED MAKER QUEZADA (dyspnea on exertion) Abnormal stress test Bradycardia Primary hypertension Mixed hyperlipidemia MAGNESIUM Routine 07/11/2024 7:25 AM PAVING BED MAKER QUEZADA (dyspnea on exertion) Abnormal stress test Bradycardia Primary hypertension Mixed hyperlipidemia PSA SCREEN Routine 04/20/2024 3:44 PM CDT Screening for prostate cancer CT ABDOMEN PELVIS WO CONTRAST ED 03/17/2023 10:34 PM CDT HEPATITIS C ANTIBODY Routine 12/22/2019 12:28 PM CDT HM COLONOSCOPY Routine 01/14/2018 from Last 3 Months or Most Recently Relevant to Health Maintenance Results * CTA HEART W CALCIUM SCORING (07/20/2024 9:51 AM PAVING BED MAKER) Anatomical Region Laterality Modality Chest N/A Computed Tomogra phy, Computed Radiography 07/20/2024 10:1 0 AM PAVING BED MAKER Narrative 07/20/2024 10:44 AM PAVING BED MAKER EXAM DESCRIPTION: CTA HEART W CALCIUM SCORING HISTORY: ECG abnormal, 10yr CHD risk > 20%, not EST candidate ?? Patient with an abnormal ECG, high CAD risk, dyspnea on exertion, chest pain ?? TECHNIQUE: CT angiogram of the heart and arteries was performed with and without intravenous contrast utilizing ECG-gating. ??3D MIP images rendered on scanning unit and reviewed at time of interpretation. ??Automated exposure control was used as a dose optimization technique for this examination. CONTRAST TYPE/DOSE: ?? 100mL of IOVERSOL 350 MG IODINE/ML INTRAVENOUS SYRINGE ?? injected via ?? intravenous COMPARISON: 08/21/2022 FINDINGS: HEART: Calcium score: ??70.7 ?? Right coronary artery and Posterior descending: ??0 Left main: ??24.9 Left anterior descending: ??33.3 Circumflex: ??12.6 ?? Right coronary artery: ??Arises from the right coronary cusp. ??Non dominant. ?? Minimal stenosis of the proximal, mid, and assessable distal segment. ?? Distally beyond the acute marginal branch the RCA is nondiagnostic/non evaluable due to small caliber and motion. Left main coronary artery: Arises from the left coronary cusp and gives rise to the circumflex and left anterior descending artery. ??Minimal stenosis at the bifurcation. Left anterior descending coronary artery: ??Mild stenosis of the proximal segment shortly after the origin. ??Minimal stenosis of the mid segment. ?? Shallow bridging of the distal segment. ??No significant stenosis of the assessable portions of the distal segment. ??Minimal/mild stenosis of the 1st diagonal branch of the proximal assessable portion. ??No significant stenosis of the proximal assessable 2nd diagonal branch. ??Shallow myocardial bridging of the 1st diagonal. ?? Circumflex: ??Dominant. ??Gives rise to the posterior descending artery. ??Mild stenosis of the proximal segment. ??Minimal stenosis of the distal segment beyond the OM branch. ??Minimal stenosis of the 1st obtuse marginal branch. ?? PDA and posterior left ventricular branches nondiagnostic due to small caliber and motion. Heart: ??3 valve aortic valve. ??Minimal aortic valve calcification. ??No atrial appendage thrombus. ??Heart size within normal limits. CHEST: HARDWARE/LINES/TUBES: ??None. VASCULATURE: ??No visualized aortic aneurysm. ?? MEDIASTINUM: ??Esophagus is unremarkable. LYMPH NODES: ??No pathologically enlarged thoracic lymphadenopathy. AIRWAY: ??Patent where imaged. LUNGS: ??No focal consolidation. No pneumothorax. No pleural effusion. No pulmonary edema. ??No suspicious pulmonary nodule. UPPER ABDOMEN: ??No acute abnormality of the visualized abdomen. BONES/SOFT TISSUES: ??No significant abnormality. OTHER: ??No other significant abnormality. ?? IMPRESSION: Mild calcified coronary disease(Calcium Score 11-100) . ?? Mild non-obstructive CAD, 25-49% stenosis, involving the proximal LAD and proximal circumflex. ??(CAD-RADS 2). Consider non-atherosclerotic causes of symptoms. ?? Distal RCA and PDA non evaluable/nondiagnostic due to small caliber and motion. REFERENCE: Coronary calcium scoring should be interpreted in the context of the overall patient including other cardiac risk factors. Consider further evaluation if multi-vessel or left-main predominant disease is present. Coronary calcium scoring is for screening asymptomatic patients, symptomatic patients require prompt evaluation. Calcium Score 0: Does not imply complete absence of coronary artery disease as non-calcified plaques may be present, but these patients may require less aggressive medical/lipid targets. Typically, does not warrant further imaging evaluation. Calcium score>0: Recommend further clinical evaluation and consider lipid/medical therapy. Scores >100 are at higher risk and therapy should be more strongly considered. ??Scores greater than 300 may require more aggressive medical targets/therapy and evaluation. ?? Jillian Tolbert, Rambo R, Lewis Holguin. Coronary Artery Calcium Score as a Graded Decision Tool. JACC Adv. 2022, 2 (9) . Molly Martinez. Sahil, Sofiya. Alina, et al. 2018 AHA/ACC/AACVPR/AAPA/ABC/ACPM/ADA/AGS/APhA/ASPC/NLA/PCNA guideline on the management of blood cholesterol: a report of the [place] [employer]/[place] Heart Association Task Force on Clinical Practice Guidelines. J Am Scarlett Cardiol, 73 (24) (2019), pp. a367-a923. [id number] THIS IS AN ELECTRONICALLY VERIFIED FINAL REPORT 07/20/2024 10:44 AM - Electronically signed by ??Eliseo AVELAR D: ??07/20/2024 10:44 AM T: Report ID: [id number] Reading Location: ??[id number] Procedure Note Eliseo Jurado MD - 07/20/2024 EXAM DESCRIPTION: CTA HEART W CALCIUM SCORING HISTORY: ECG abnormal, 10yr CHD risk > 20%, not EST candidate Patient with an abnormal ECG, high CAD risk, dyspnea on exertion, chestpain TECHNIQUE: CT angiogram of the heart and arteries was performed with and without intravenous contrast utilizing ECG-gating. 3D MIP images renderedon scanning unit and reviewed at time of interpretation. Automated exposure control was used as a dose optimization technique for this examination. CONTRAST TYPE/DOSE: 100mL of IOVERSOL 350 MG IODINE/ML INTRAVENOUSSYRINGE injected via intravenous COMPARISON: 08/21/2022 FINDINGS: HEART: Calcium score: 70.7 Right coronary artery and Posterior descendin Left main: 24.9 Left anterior descendin.3 Circumflex: 12.6 Right coronary artery: Arises from the right coronary cusp. Nondominant. Minimal stenosis of the proximal, mid, and assessable distal segment. Distally beyond the acute marginal branch the RCA is nondiagnostic/non evaluable due to small caliber and motion. Left main coronary artery: Arises from the left coronary cusp and givesrise to the circumflex and left anterior descending artery. Minimal stenosisat the bifurcation. Left anterior descending coronary artery: Mild stenosis of the proximal segment shortly after the origin. Minimal stenosis of the mid segment. Shallow bridging of the distal segment. No significant stenosis of the assessable portions of the distal segment. Minimal/mild stenosis of the1st diagonal branch of the proximal assessable portion. No significantstenosis of the proximal assessable 2nd diagonal branch. Shallow myocardialbridging of the 1st diagonal. Circumflex: Dominant. Gives rise to the posterior descending artery.Mild stenosis of the proximal segment. Minimal stenosis of the distal segment beyond the OM branch. Minimal stenosis of the 1st obtuse marginal branch. PDA and posterior left ventricular branches nondiagnostic due to smallcaliber and motion. Heart: 3 valve aortic valve. Minimal aortic valve calcification. Noatrial appendage thrombus. Heart size within normal limits. CHEST: HARDWARE/LINES/TUBES: None. VASCULATURE: No visualized aortic aneurysm. MEDIASTINUM: Esophagus is unremarkable. LYMPH NODES: No pathologically enlarged thoracic lymphadenopathy. AIRWAY: Patent where imaged. LUNGS: No focal consolidation. No pneumothorax. No pleural effusion. No pulmonary edema. No suspicious pulmonary nodule. UPPER ABDOMEN: No acute abnormality of the visualized abdomen. BONES/SOFT TISSUES: No significant abnormality. OTHER: No other significant abnormality. IMPRESSION: Mild calcified coronary disease(Calcium Score 11-100) . Mild non-obstructive CAD, 25-49% stenosis, involving the proximal LADand proximal circumflex. (CAD-RADS 2). Consider non-atherosclerotic causes of symptoms. Distal RCA and PDA non evaluable/nondiagnostic due to small caliber and motion. REFERENCE: Coronary calcium scoring should be interpreted in the contextof the overall patient including other cardiac risk factors. Consider further evaluation if multi-vessel or left-main predominant disease is present. Coronary calcium scoring is for screening asymptomatic patients,symptomatic patients require prompt evaluation. Calcium Score 0: Does not imply complete absence of coronary arterydisease as non-calcified plaques may be present, but these patients may require less aggressive medical/lipid targets. Typically, does not warrant furtherimaging evaluation. Calcium score>0: Recommend further clinical evaluation and consider lipid/medical therapy. Scores >100 are at higher risk and therapy shouldbe more strongly considered. Scores greater than 300 may require moreaggressive medical targets/therapy and evaluation. Didi, S, Rambo R, Lewis Holguin. Coronary Artery Calcium Score as aGraded Decision Tool. JACC Adv. 2022, 2 (9) . Amelia Martinez, Sofiya. Alina, et al. 2018 AHA/ACC/AACVPR/AAPA/ABC/ACPM/ADA/AGS/APhA/ASPC/NLA/PCNA guideline on the management of blood cholesterol: a report of the [place] [employer]/[place] Heart Association Task Force on Clinical Practice Guidelines. J Am Scarlett Cardiol, 73 (24) (2019), pp. r271-i806. [id number] THIS IS AN ELECTRONICALLY VERIFIED FINAL REPORT 07/20/2024 10:44 AM - Electronically signed by Eliseo AVELAR T: Report ID: [id number] Reading Location: [place] [address] us Tami Corona FOOD AND BEVERAGE CHECKER IMG CT PROCEDURES Final Result * eGFR (07/11/2024 7:25 AM PAVING BED MAKER) eGFR 90 >=60 mL/min/1. 73 m2 Comment: Interpretive Data Reference Interval Normal ?>/= 90 mL/min/1.73m2 Mildly decreased* ? 60 - 89 mL/min/1.73m2 Mildly to moderately decreased ?45 - 59 mL/min/1.73m2 Moderately to severely decreased ??30 - 44 mL/min/1.73m2 Severely decreased ?15 - 29 mL/min/1.73m2 Kidney Failure ?< 15 ??mL/min/1.73m2 *Relative to young adult level Estimated glomerular filtration rate is determined by the 2020 CKD-EPI equation recommended by the National Kidney Foundation (A Unifying Approach to GFR Estimation: Recommendations of the NKF-ASK Task Force on Reassessing the Inclusion of Race in Diagnosing Kidney Disease, JASN 2020). The CKD-EPI equation should not be used for patients with unstable renal function and has not been validated in children and those over 70. Current interpretive data was last reviewed 2021. Blood 07/11/2024 7:25 AM PAVING BED MAKER 07/11/2024 8:03 AM PAVING BED MAKER us Tami Corona [employer]EVER[employer] CHECKER LAB BLOOD ORDERABLES Final Res ult [facility] [address] [facility] [place] [address] * Differential, auto (07/11/2024 7:25 AM PAVING BED MAKER) Pathologist [facility] Neutrophil abs 5.1 1.5 - 6.5 K/cumm Imm gran abs 0.0 0.0 - 0.1 K/cumm [facility] Lymphocyte abs 2.0 0.8 - 3.3 K/cumm [facility] Monocyte abs 0.6 0.2 - 0.8 K/cumm [facility] Eosinophil abs 0.2 0.0 - 0.5 K/cumm [facility] Basophil abs 0.1 0.0 - 0.1 K/cumm [facility] Neutrophil pct 64.0 % [facility] Comment: Interpretive Data Percent cell count reference ranges are not reported, since discordance with absolute values may lead to misinterpretation of CBC data. Current Interpretive Data was last revised on 2017. Imm gran pct 0.4 % [facility] Comment: Interpretive Data Percent cell count reference ranges are not reported, since discordance with absolute values may lead to misinterpretation of CBC data. Current Interpretive Data was last revised on 2017. Lymphocyte pct 24.7 % [facility] Comment: Interpretive Data Percent cell count reference ranges are not reported, since discordance with absolute values may lead to misinterpretation of CBC data. Current Interpretive Data was last revised on 2017. Monocyte pct 7.4 % [facility] Comment: Interpretive Data Percent cell count reference ranges are not reported, since discordance with absolute values may lead to misinterpretation of CBC data. Current Interpretive Data was last revised on 2017. Eosinophil pct 2.9 % [facility] Comment: Interpretive Data Percent cell count reference ranges are not reported, since discordance with absolute values may lead to misinterpretation of CBC data. Current Interpretive Data was last revised on 2017. Basophil pct 0.6 % [facility] Comment: Interpretive Data Percent cell count reference ranges are not reported, since discordance with absolute values may lead to misinterpretation of CBC data. Current Interpretive Data was last revised on 2017. Blood 07/11/2024 7:25 AM PAVING BED MAKER 07/11/2024 8:03 AM PAVING BED MAKER us Tami Corona [employer] CHECKER LAB BLOOD ORDERABLES Final Res ult [facility] [address] [facility] [place] [address] * (ABNORMAL) CBC with auto differential (07/11/2024 7:25 AM PAVING BED MAKER) WBC 7.9 3.8 - 9.9 K/cumm Hgb 14.0 13.0 - 17.5 g/dL [facility] Hct 41.2 38.9 - 50.3 % [facility] Plt 222 150 - 400 K/cumm [facility] MPV 9.3 9.1 - 12.3 fL [facility] RBC 4.30 4.30 - 5.80 M/cumm [facility] MCV 95.8 81.3 - 96.4 fL [facility] MCH 32.6 27.1 - 33.3 pg [facility] MCHC 34.0 32.3 - 35.7 g/dL [facility] RDW CV 13.8 11.1 - 14.9 % [facility] RDW SD 48.2(H) 35.7 - 48.1 fL [facility] NRBC abs 0.00 0.00 - 0.01 K/cumm [facility] Blood 07/11/2024 7:25 AM PAVING BED MAKER 07/11/2024 8:03 AM PAVING BED MAKER Tami Corona [employer] CHECKER LAB BLOOD ORDERABLES Final Res ult Performing Organization Address [facility] de Phone Number [address] [place] [address] * Magnesium (07/11/2024 7:25 AM PAVING BED MAKER) Pathologist [facility] Magnesium 1.9 1.4 - 2.5 mg/dL Blood 07/11/2024 7:25 AM PAVING BED MAKER 07/11/2024 8:03 AM PAVING BED MAKER Tami Corona [employer] BEVERAGE CHECKER LAB BLOOD ORDERABLES Final Res ult Performing Organization Address [facility] Co de Phone Number [address] [place] [address] * Lipid panel (07/11/2024 7:25 AM PAVING BED MAKER) Cholesterol 117 30 - 199 mg/dL Comment: Interpretive Data Ages < or = 19 years ??Acceptable: ? <170 mg/dL ??Borderline high: ??170-199 mg/dL ??High: ? >or= 200 mg/dL Ages > or = 20 years ??Desirable: ?<200 mg/dL ??Borderline high: ??200-239 mg/dL ??High: ? >or= 240 mg/dL Literature References: 1. Expert Panel on Integrated Guidelines for Cardiovascular Health and Risk Reduction in Children and Adolescents. Pediatrics 2011;128:S213 2. NCEP Expert Panel. Circulation 2004;110:227 Current Interpretive Data was last revised on 2018. Triglycerides 65 <=149 mg/dL TREIVN BUCKLEY Comment: Interpretive Data Ages < or = 9 years ??Acceptable: ? <75 mg/dL ??Borderline high: ??75-99 mg/dL ??High: ? >or= 100 mg/dL Ages 10 to 20 years ??Acceptable: ? <90 mg/dL ??Borderline high: ??90-129 mg/dL ??High: ? >or= 130 mg/dL Ages > or = 20 years ??Desirable: ?<150 mg/dL ??Borderline high: ??150-199 mg/dL ??High: ? 200-499 mg/dL ?Very high: ?? >or= 499 mg/dL Literature References: 1. Expert Panel on Integrated Guidelines for Cardiovascular Health and Risk Reduction in Children and Adolescents. Pediatrics 2011;128:S213 2. NCEP Expert Panel. Circulation 2004;110:227 Current Interpretive Data was last revised on 2018. HDL 53 >=40 mg/dL TREVIN BUCKLEY Comment: Interpretive Data Ages < or = 19 years ??Acceptable: ? >45 mg/dL ??Borderline low: ?? 40-45 mg/dL ??Low: ? <40 mg/dL Ages > or = 20 years ??Desirable: ?>or= 60 mg/dL ??Low: ? <40 mg/dL Literature References: 1. Expert Panel on Integrated Guidelines for Cardiovascular Health and Risk Reduction in Children and Adolescents. Pediatrics 2011;128:S213 2. NCEP Expert Panel. Circulation 2004;110:227 Current Interpretive Data was last revised on 2018. LDL, calculated 50 <=129 mg/dL TREVIN BUCKLEY Comment: Interpretive Data Ages < or = 19 years ??Acceptable: ? <110 mg/dL ??Borderline high: ??110-129 mg/dL ??High: ?>or= 130 mg/dL Ages > or = 20 years ??Optimal: ? <100 mg/dL ??Near optimal: ?100-129 mg/dL ??Borderline high: ?? 130-159 mg/dL ??High: ?>160 mg/dL Calculated using the Denilson LDL-C estimating equation. This equation was implemented on 2024. Prior to this date LDL-C was estimated using the Friedewald equation. Literature References: 1. Expert Panel on Integrated Guidelines for Cardiovascular Health and Risk Reduction in Children and Adolescents. Pediatrics 2011;128:S213 2. NCEP Expert Panel. Circulation 2004;110:227 3. Denilson Reeves et al. MYNOR Cardiol. 2020 December 31;5(5):540-548. doi: 10.1001/jamacardio.2020.0013 Current Interpretive Data was last revised on 2024. Non-HDL Cholesterol 64 mg/dL TREVIN Comment: Interpretive Data Ages < or = 19 years ??Acceptable: ?<120 mg/dL ??Borderline high: ??120-144 mg/dL ??High: ?>145 mg/dL Ages > or = 20 years ??When triglycerides are >200 mg/dL, Non-HDL cholesterol is a secondary target of ? therapy with treatment goals that are 30 mg/dL greater than the LDL cholesterol target. ? Literature References: 1. Expert Panel on Integrated Guidelines for Cardiovascular Health and Risk Reduction in Children and Adolescents. Pediatrics 2011;128:S213 2. NCEP Expert Panel. Circulation 2004;110:227 Current Interpretive Data was last revised on 2018. Chol/HDL ratio 2 [facility] Blood 07/11/2024 7:25 AM PAVING BED MAKER 07/11/2024 8:03 AM PAVING BED MAKER us Tami Corona [employer] AND BEVER[employer] CHECKER LAB BLOOD ORDERABLES Final Res ult [facility] [address] [facility] [place] [address] * (ABNORMAL) Comprehensive metabolic panel (07/11/2024 7:25 AM PAVING BED MAKER) Sodium 142 135 - 145 mmol/L Potassium, pl 4.4 3.3 - 4.9 mmol/L [facility] Chloride 108 97 - 110 mmol/L [facility] CO2 23 22 - 32 mmol/L [facility] Anion gap 11 2 - 15 mmol/L [facility] BUN 22 6 - 25 mg/dL [facility] Creatinine 0.94 0.80 - 1.30 mg/dL [facility] Glucose 111 70 - 199 mg/dL [facility] Comment: Interpretive Data Fasting glucose >/= 126 mg/dl is diagnostic for diabetes. ?? Fasting is defined as no caloric intake for at least 8 hours. Fasting glucose between 100 mg/dl to 125 mg/dl is diagnostic of prediabetes. In a patient with classic symptoms of hyperglycemia or hyperglycemic crisis, a random glucose >/= 200 mg/dl is diagnostic for diabetes. In the absence of unequivocal hyperglycemia, results should be confirmed by repeat testing. The classification and Diagnosis of Diabetes Diabetes Care 202; 46: S19-S40. Current interpretive data was last revised 2022. Calcium 9.4 8.5 - 10.3 mg/dL [facility] Bilirubin, total 0.2 0.1 - 1.2 mg/dL [facility] Protein, pl 6.1(L) 6.5 - 8.5 g/dL [facility] Albumin 3.7 3.5 - 5.0 g/dL [facility] Alk phos 80 40 - 130 Units/L [facility] ALT 14 7 - 55 Units/L [facility] AST 21 10 - 50 Units/L [facility] Blood 07/11/2024 7:25 AM PAVING BED MAKER 07/11/2024 8:03 AM PAVING BED MAKER us Tami Corona FO[employer] AND BEVERAGE CHECKER LAB BLOOD ORDERABLES Final Res ult Performing Organization Address [facility] Co de Phone Number [facility] [address] [place] [address] * PSA screen (04/20/2024 3:44 PM CDT) PSA-Total 0.83 <=5.40 ng/mL Comment: Interpretive Data ?AGE ? SEX ?REFERENCE INTERVAL 0 minutes-150 years ?Female ?None 0 minutes-49 years ? Male ?None ? 50-59 years ? Male ?0-3.90 ? 60-69 years ? Male ?0-5.40 ? 70-79 years ? Male ?0-6.20 ? 80-150 years ?Male ?0-6.20 The Maria Dolores PSA Total assay procedure was used. Results from different manufacturers or methods may not be comparable. Serial testing should be performed using the same method. Current interpretive data last revised 22. Testing performed by: [facility], [address] [place] [address]., [id number] Blood 04/20/2024 3:44 PM CDT 04/20/2024 4:36 PM CDT us Nai Ramirez FO[employer] AND BEVERAGE CHECKER LAB BLOOD ORDERABLES Final Re sult Performing Organization Address [facility] de Phone Number [facility] [address] [place], [place] [id number] * CT Abdomen Pelvis WO Contrast (03/17/2023 10:34 PM CDT) Anatomical Region Laterality Modality Body N/A Computed Tomogra phy 03/17/2023 10:5 1 PM CDT Narrative 03/17/2023 11:09 PM CDT EXAM DESCRIPTION: ?? CT ABDOMEN PELVIS WO CONTRAST REASON FOR STUDY: ?? Abdominal pain, acute, nonlocalized, constipation/ N/V ARF Pt to ED via EMS from home. Pt had ankle surgery on 03/04/23 (left ankle). Pt states he hasn't been able to have a BM since surgery. Pt states that a couple days ago he began having nausea and intense pain in the left ankle. Pt left ankle is wrapped and ?? hasn't been unwrapped since he had the bandage put on 03/04/23 ? TECHNIQUE: CT scan of the abdomen and pelvis performed without intravenous and without ??oral contrast using helical scanning technique. Reconstructed coronal and sagittal MPR images reviewed. All images stored on PACS. Automated exposure control was used as a dose optimization technique for this examination. COMPARISON: ?? CT of the abdomen and pelvis of January 28, 2018 REFERENCE: Per ACR white paper recommendations, unless otherwise specified no follow-up imaging is recommended for incidental renal and adrenal lesions per consensus recommendations based on imaging criteria. Further lab evaluation could be pursued based on clinical findings. FINDINGS: The sensitivity for detection of visceral lesions is significantly diminished without the use of intravenous contrast. ??Study is limited secondary to lack of visceral fat, respiratory motion and significant streak artifact over the upper abdomen from the patient's cardiac monitoring device. LOWER CHEST: ??There is a new moderate right pleural effusion with atelectasis versus consolidation in the adjacent right lower lobe. ??There is mild atelectasis in the right middle lobe. ??The left lung base appears clear. ? LIVER: ??The liver is normal in attenuation without focal lesion. GALLBLADDER: ??There is a 1.4 cm stone layering posteriorly within the gallbladder. BILE DUCTS: ??No intrahepatic or extrahepatic ductal dilatation. PANCREAS: ??Normal. SPLEEN: ??Normal size. ??No focal lesions. ADRENALS: ??Normal. KIDNEYS/URINARY TRACT: ??There is severe perinephric stranding surrounding the kidneys bilaterally, greater on the right than the left. ??There is mild left hydronephrosis and hydroureter to the mid left ureter beyond which the ureter is not definitively identified. ??There is moderate right hydronephrosis with abnormal high density within the right collecting system and layering posteriorly within the dilated renal pelvis, suggestive of hemorrhage. ??The right ureter is not clearly identified. ?A Cooper catheter is seen in place within the bladder. VASCULATURE: ??There is moderate to severe atherosclerosis of the aorta and its pelvic branches. GI: ??The stomach appears normal. ?? The small bowel is not well evaluated, however, there are no gross dilated loops. ?There is extensive diverticulosis of the sigmoid colon. ??There is collapsed versus thickening of the ascending and transverse colon. ?The appendix is not visualized. PERITONEUM/MESENTERY: ??There is a small amount of free fluid in the pelvis and fluid tracking along the pericolic gutters bilaterally. ?There is marked mesenteric edema through out the mesentery. LYMPH NODES: ??There are no grossly enlarged lymph nodes seen by CT size criteria. REPRODUCTIVE: ??The prostate is enlarged, measuring 5.2 x 4.5 cm. MUSCULOSKELETAL: ??Multilevel degenerative changes are present in the spine. No acute abnormality is seen. ??Disc fusion hardware is seen at the lumbosacral junction. ?? There is diffuse anasarca throughout the abdominal and pelvic wall and extending into the lower extremities bilaterally. ??The patient has loss of the majority of his visceral and subcutaneous fat in the interval since previous study. OTHER: ??No other abnormality. IMPRESSION: Moderate right hydronephrosis with abnormal high density within the right collecting system and layering posteriorly within the dilated renal pelvis, suggestive of hemorrhage. There is mild left hydronephrosis and hydroureter to the mid left ureter beyond which the ureter is not definitively identified. Severe perinephric stranding surrounding the kidneys bilaterally, greater on the right than the left. This could be infectious or inflammatory in etiology. New moderate right pleural effusion with atelectasis versus consolidation in the adjacent right lower lobe. Small amount of ascites, marked mesenteric edema and diffuse anasarca suggestive of fluid overload or hypoproteinemia. Collapse versus thickening of the ascending and transverse colon. This could be due to under distension, however, colitis cannot be excluded. Cholelithiasis. Diverticulosis. Prostatomegaly. THIS IS AN ELECTRONICALLY VERIFIED FINAL REPORT 03/17/2023 11:09 PM - Electronically signed by ??Joanne Flor M.D. SN: D: ??03/17/2023 11:09 PM T: ??03/17/2023 11:09 PM Report ID: [id number] Reading Location: ??[id number] Procedure Note Joanne Flor MD - 03/17/2023 EXAM DESCRIPTION: CT ABDOMEN PELVIS WO CONTRAST REASON FOR STUDY: Abdominal pain, acute, nonlocalized, constipation/ N/VARF Pt to ED via EMS from home. Pt had ankle surgery on 03/04/23 (left ankle).Pt states he hasn't been able to have a BM since surgery. Pt states that acouple days ago he began having nausea and intense pain in the left ankle. Ptleft ankle is wrapped and hasn't been unwrapped since he had the bandage puton 03/04/23 TECHNIQUE: CT scan of the abdomen and pelvis performed without intravenousand without oral contrast using helical scanning technique. Reconstructed coronal and sagittal MPR images reviewed. All images stored on PACS.Automated exposure control was used as a dose optimization technique for this examination. COMPARISON: CT of the abdomen and pelvis of January 28, 2018 REFERENCE: Per ACR white paper recommendations, unless otherwise specifiedno follow-up imaging is recommended for incidental renal and adrenal lesionsper consensus recommendations based on imaging criteria. Further labevaluation could be pursued based on clinical findings. FINDINGS: The sensitivity for detection of visceral lesions is significantlydiminished without the use of intravenous contrast. Study is limited secondary tolack of visceral fat, respiratory motion and significant streak artifact overthe upper abdomen from the patient's cardiac monitoring device. LOWER CHEST: There is a new moderate right pleural effusion withatelectasis versus consolidation in the adjacent right lower lobe. There is mild atelectasis in the right middle lobe. The left lung base appears clear. LIVER: The liver is normal in attenuation without focal lesion. GALLBLADDER: There is a 1.4 cm stone layering posteriorly within the gallbladder. BILE DUCTS: No intrahepatic or extrahepatic ductal dilatation. PANCREAS: Normal. SPLEEN: Normal size. No focal lesions. ADRENALS: Normal. KIDNEYS/URINARY TRACT: There is severe perinephric stranding surroundingthe kidneys bilaterally, greater on the right than the left. There is mildleft hydronephrosis and hydroureter to the mid left ureter beyond which theureter is not definitively identified. There is moderate right hydronephrosiswith abnormal high density within the right collecting system and layering posteriorly within the dilated renal pelvis, suggestive of hemorrhage.The right ureter is not clearly identified. A Cooper catheter is seen inplace within the bladder. VASCULATURE: There is moderate to severe atherosclerosis of the aorta andits pelvic branches. GI: The stomach appears normal. The small bowel is not well evaluated, however, there are no gross dilated loops. There is extensive diverticulosis of the sigmoid colon. There is collapsed versus thickeningof the ascending and transverse colon. The appendix is not visualized. PERITONEUM/MESENTERY: There is a small amount of free fluid in the pelvisand fluid tracking along the pericolic gutters bilaterally. There is marked mesenteric edema through out the mesentery. LYMPH NODES: There are no grossly enlarged lymph nodes seen by CT size criteria. REPRODUCTIVE: The prostate is enlarged, measuring 5.2 x 4.5 cm. MUSCULOSKELETAL: Multilevel degenerative changes are present in thespine. No acute abnormality is seen. Disc fusion hardware is seen at thelumbosacral junction. There is diffuse anasarca throughout the abdominal and pelvicwall and extending into the lower extremities bilaterally. The patient hasloss of the majority of his visceral and subcutaneous fat in the interval since previous study. OTHER: No other abnormality. IMPRESSION: Moderate right hydronephrosis with abnormal high density within the right collecting system and layering posteriorly within the dilated renalpelvis, suggestive of hemorrhage. There is mild left hydronephrosis andhydroureter to the mid left ureter beyond which the ureter is not definitivelyidentified. Severe perinephric stranding surrounding the kidneys bilaterally, greateron the right than the left. This could be infectious or inflammatory inetiology. New moderate right pleural effusion with atelectasis versus consolidationin the adjacent right lower lobe. Small amount of ascites, marked mesenteric edema and diffuse anasarca suggestive of fluid overload or hypoproteinemia. Collapse versus thickening of the ascending and transverse colon. Thiscould be due to under distension, however, colitis cannot be excluded. Cholelithiasis. Diverticulosis. Prostatomegaly. THIS IS AN ELECTRONICALLY VERIFIED FINAL REPORT 03/17/2023 11:09 PM - Electronically signed by Joanne Flor M.D. SN: Report ID: [id number] Reading Location: [place] [address] Dale Kulkarni DO IMG CT PROCEDURES Final Result * Hepatitis C antibody (12/22/2019 12:28 PM CDT) Pathologist [facility] Hep C Ab NONREACT NONREACTIVE [facility] Comment: Siemens Gear EnergyaurXP using DON (chemiluminescent immunoassay) technology. NONREACTIVE: Antibodies to Hepatitis C not detected. This does not exclude early acute Hepatitis C infection, possibility of exposure to Hepatitis C, antibodies below detection limit, or to lack of antibody reactivity to the antigen used in this assay. EQUIVOCAL: Antibodies to Hepatitis C may or may not be present. ??Sample to be confirmed by real-time PCR method. REACTIVE: Antibodies to Hepatitis C detected.Sample to be confirmed by real-time PCR method. 12/22/2019 12:2 8 PM CDT 12/22/2019 12:48 PM CDT Narrative Resulting Agency Comment CLI Nai Ramirez NP LAB MICROBIOLOGY - GENERAL OR DERABLES Final Result [id number] [place] [address] * COLONOSCOPY (01/14/2018) Colonoscopy Abnormal Comment:Dr. Cordova Historical Provider HEALTH MAINTENANCE Final Result from Last 3 Months or Most Recently Relevant to Health Maintenance Insurance MEDICARE MEDICARE SOLUTIONS [facility] MEDICARE SOLUTIONS [facility] OOS [address] [place] [address] [employer] [address] [place] [address] [facility] [id number] (Work) [address] [place] [id number] Advance Directives For more information, please contact: [phone] * Full Code (Latest Code Status on File) Date Activated Date Inactivated Comments 08/08/2023 3:15 PM 08/08/2023 8:39 PM * Full Code Date Activated Date Inactivated Comments 07/01/2023 11:54 AM 07/02/2023 6:55 PM * Full Code Date Activated Date Inactivated Comments 03/19/2023 10:34 AM 03/21/2023 7:04 PM Care Teams Human Services Assistant Relationship Specialty Start Date End Date Nai Ramirez, CHRIS [address] [place] [address] PCP - General Internal Medicine 04/18/23 Vinh Chicas MD [address] [place] [address] PCP - Cardiology Cardiovascular Disease 06/03/23 Nai Ramirez NP 04/28/19
--- OUTSIDE RECORDS SUMMARY | 2024-10-02 12:01 | XMS_ITS | Referral Summary ---
Author Organization [place] [id number] [facility] Address [facility] [place] [address] Care Team Providers Care Glaze Mixer Name Role Phone Nai Ramirez BARREL LATHE OPERATOR Unavailable [phone] Nai Ramirez BARREL LATHE OPERATOR Primary Care Provider [phone] Vinh Chicas MD Unavailable Encounters Date Type Department Care Team Description 10/01/2024 Nurse Triage [facility] Internal Medicine at [address] [place] [phone] Dominga Wolfe RN 10/01/2024 Nurse Triage [facility] Internal Medicine at [address] [place] [phone] Nai Ramirez NP 09/23/2024 3:00 PM HAND FRETTED INSTRUMENT MAKER Office Visit [facility] Care at [address] [phone] Deirdre Clark NP Generalized headache (Primary Dx); Dizziness 09/22/2024 Nurse Triage [facility] Internal Medicine at [place] [address] [place] [phone] Nai Ramirez NP 09/03/2024 Telephone [facility] Internal Medicine at [address] [place] [address] Nai Ramirez NP Med Refill 08/25/2024 8:30 AM HAND FRETTED INSTRUMENT MAKER Office Visit [facility] Internal Medicine at [address] [place] [phone] Nai Ramirez NP Acute recurrent maxillary sinusitis (Primary Dx); BMI 23.0-23.9, adult; Drug-induced erectile dysfunction 07/20/2024 8:26 AM HAND FRETTED INSTRUMENT MAKER - 07/20/2024 11:59 PM HAND FRETTED INSTRUMENT MAKER Hospital Encounter [facility] [address] [place] [address] Rn, Mhb Rad QUEZADA (dyspnea on exertion); Chest pain, unspecified type; Precordial pain Discharge Disposition: Discharge to home or self care 07/17/2024 Telephone [facility] Cardiology [address] [phone] Tami Corona NP 07/11/2024 7:10 AM HAND FRETTED INSTRUMENT MAKER Lab [facility] [address] [place] [address] QUEZADA (dyspnea on exertion); Abnormal stress test; Bradycardia; Primary hypertension; Mixed hyperlipidemia 07/10/2024 Telephone [facility] Internal Medicine at [address] [place] [phone] Nai Ramirez NP Medical Question/Miscellaneous 07/10/2024 3:30 PM HAND FRETTED INSTRUMENT MAKER Office Visit [facility] Internal Medicine at [address] [place] [phone] Nai Ramirez NP Primary insomnia (Primary Dx); BMI 21.0-21.9, adult from Last 3 Months Allergies No known active allergies Medications cyclobenzaprine [...] release Assessment & Plan (07/20/2019 3:48 PM HAND FRETTED INSTRUMENT MAKER): Marked improvement in range of motion. Marked improvement in pain. However, developed muscle spasms. Anxious to get back to normal activities. Wants to continue physical therapy for strengthening. Assessment & Plan (07/06/2019 8:44 AM HAND FRETTED INSTRUMENT MAKER): Patient has failed nonsteroidal anti-inflammatories and [...] restriction. Assessment & Plan (10/14/2019 10:05 AM HAND FRETTED INSTRUMENT MAKER): Begin work hardening strength training. Follow up in 6 weeks. Assessment & Plan (08/31/2019 1:28 PM HAND FRETTED INSTRUMENT MAKER): Formal physical therapy with strengthening for 6 more weeks. Patient will follow up in 6 weeks. Assessment & Plan (07/20/2019 3:48 PM HAND FRETTED INSTRUMENT MAKER): Formal physical therapy with strengthening Assessment & Plan (07/06/2019 8:44 AM HAND FRETTED INSTRUMENT MAKER): Not making progress with formal physical [...] chronic neck pain and has seen Dr. Puente for multiple injections. After failing conservative treatment [...] 05/17/2017 Assessment & Plan (07/06/2020 1:32 PM HAND FRETTED INSTRUMENT MAKER): The patient was giving a different [...] Resolved Date BMI 27.0-27.9,adult 08/11/2019 01/18/20 23 Immunizations Name Administration Dates Next Due Influenza, Quadrivalent, Spl it, Preservative Free, Intramuscular 05/30/2023,07/18/2022,07/04/2021,06/10,05/24/2019 Influenza, Trivalent, High D ose, Split, Preservative Free, Intramuscular 06/05/2024 Pneumococcal Conjugate Pcv20 08/25/2024 Tdap 02/22/2023 Social History Tobacco Use Types Packs/Day [...] 03/18/2023 How often do you attend chur or congregation services? Never 03/18/2023 Do you belong to any clubs o r organizations such as alevism groups, unions, fraternal or athletic groups, or [...] place to sleep or slept in a assisted (including now)? No 03/18/2023 Personal Safety Answer Date Recorded Have you ever been in or are you currently in a harmful physical or emotional relationship or is someone making you feel afraid or unsafe? Denies 08/08/2023 Sex and Gender Information Value Date Recorded Sex Assigned at Not on file Legal Sex Male 3:57 PM HAND FRETTED INSTRUMENT MAKER Gender Identity Male 01/08/2020 9:10 AM CDT Sexual Orientation Straight 01/08/2020 9: 10 AM CDT Last Filed Vital Signs Vital Sign Reading Time Taken Comments Blood Pressure 144/82 09/23/2024 3:06 PM HAND FRETTED INSTRUMENT MAKER Pulse 57 09/23/2024 3:06 PM HAND FRETTED INSTRUMENT MAKER Temperature 36.8 ??C (98.2 ??F) 09/23/2024 3:06 PM CS T Respiratory Rate 14 09/23/2024 3:06 PM HAND FRETTED INSTRUMENT MAKER Oxygen Saturation 96% 09/23/2024 3:06 PM HAND FRETTED INSTRUMENT MAKER Inhaled Oxygen Concentration - - Weight 86.2 kg (190 lb) 09/23/2024 3:06 PM HAND FRETTED INSTRUMENT MAKER Height 193 cm (6' 4 ) 09/23/2024 3:06 PM HAND FRETTED INSTRUMENT MAKER Body Mass Index 23.13 09/23/2024 3:06 PM HAND FRETTED INSTRUMENT MAKER Plan of Treatment Not on file Medical Devices Implanted Type Area Hammer Shop Supervisor Device Identifier Shelf Expiration Date Model / Serial / Lot [id number] Cage Back Pins And Plate Left: Wrist Plate Left: Ankle Procedures Procedure Name Priority Date/Time Associated Diagnosis Comments CTA HEART W CALCIUM SCORING Schedule Routine, Read Routine (OP Routine) 07/20/2024 9:51 AM HAND FRETTED INSTRUMENT MAKER QUEZADA (dyspnea on exertion) Chest pain, unspecified type Precordial pain EGFR Routine 07/11/2024 7:25 AM HAND FRETTED INSTRUMENT MAKER QUEZADA (dyspnea on exertion) Abnormal stress test Bradycardia Primary hypertension Mixed hyperlipidemia DIFFERENTIAL AUTO Routine 07/11/2024 7:2 5 AM HAND FRETTED INSTRUMENT MAKER QUEZADA (dyspnea on exertion) Abnormal stress test Bradycardia Primary hypertension Mixed hyperlipidemia CBC WITH AUTO DIFFERENTIAL Routine 07/11/2024 7:25 AM HAND FRETTED INSTRUMENT MAKER QUEZADA (dyspnea on exertion) Abnormal stress test Bradycardia Primary hypertension Mixed hyperlipidemia COMPREHENSIVE METABOLIC PANEL Routine 07/11/2024 7:25 AM HAND FRETTED INSTRUMENT MAKER QUEZADA (dyspnea on exertion) Abnormal stress test Bradycardia Primary hypertension Mixed hyperlipidemia LIPID PANEL Routine 07/11/2024 7:25 AM HAND FRETTED INSTRUMENT MAKER QUEZADA (dyspnea on exertion) Abnormal stress test Bradycardia Primary hypertension Mixed hyperlipidemia MAGNESIUM Routine 07/11/2024 7:25 AM HAND FRETTED INSTRUMENT MAKER QUEZADA (dyspnea on exertion) Abnormal stress [...] HEART W CALCIUM SCORING (07/20/2024 9:51 AM HAND FRETTED INSTRUMENT MAKER) Anatomical Region Laterality Modality Chest N/A Computed Tomogra phy, Computed Radiography 07/20/2024 10:1 0 AM HAND FRETTED INSTRUMENT MAKER Narrative 07/20/2024 10:44 AM HAND FRETTED INSTRUMENT MAKER EXAM DESCRIPTION: CTA HEART W CALCIUM [...] medical targets/therapy and evaluation. ?? Jillian Tolbert, Sanjuana Ricks, Lewis Holguin. Coronary Artery Calcium Score as a Graded Decision Tool. JACC Adv. 2022, 2 (9) . Molly Martinez. Sahil, Sofiya. Alina, et al. 2018 AHA/ACC/AACVPR/AAPA/ABC/ACPM/ADA/AGS/APhA/ASPC/NLA/PCNA guideline on the management of blood cholesterol: a report of the [place] College of Cardiology/[place] Heart Association Task Force on Clinical Practice Guidelines. J Am Scarlett Cardiol, 73 (24) (2019), pp. c358-z120. [id number] THIS IS AN ELECTRONICALLY VERIFIED FINAL REPORT 07/20/2024 10:44 AM - Electronically signed by ??Eliseo AVELAR D: ??07/20/2024 10:44 AM T: Report ID: [id number] Reading Location: ??[id number] Procedure Note Eliseo Jurado MD - 07/20/2024 [...] may require moreaggressive medical targets/therapy and evaluation. Jillian Tolbert, Sanjuana Ricks, Lewis Holguin. Coronary Artery Calcium Score as aGraded Decision Tool. JACC Adv. 2022 Nov, 2 (9) . Amelia Martinez A.L. Bailey, et al. 2018 AHA/ACC/AACVPR/AAPA/ABC/ACPM/ADA/AGS/APhA/ASPC/NLA/PCNA guideline on the management of blood cholesterol: a report of the [place] College of Cardiology/[place] Heart Association Task Force on Clinical Practice Guidelines. J Am Scarlett Cardiol, 73 (24) (2019), pp. u205-d372. [id number] THIS IS AN ELECTRONICALLY VERIFIED FINAL REPORT 07/20/2024 10:44 AM - Electronically signed by Eilseo AVELAR T: Report ID: [id number] Reading Location: [place] [address] Cor[address] IM[address] PROCEDURES Final Result * eGFR (07/11/2024 7:25 AM HAND FRETTED INSTRUMENT MAKER) eGFR 90 >=60 mL/min/1. 73 m2 [...] last reviewed 2021. Blood 07/11/2024 7:25 AM HAND FRETTED INSTRUMENT MAKER 07/11/2024 8:03 AM HAND FRETTED INSTRUMENT MAKER us Tami Corona BARREL LATHE OPERATOR LAB BLOOD ORDERABLES Final Res ult [place] [address] [facility] Department [place] [address] * Differential, auto (07/11/2024 7:25 AM HAND FRETTED INSTRUMENT MAKER) Pathologist [facility] Neutrophil abs 5.1 1.5 - 6.5 K/cumm Imm gran abs 0.0 0.0 - 0.1 K/cumm [facility] Lymphocyte abs 2.0 0.8 - 3.3 K/cumm [facility] Monocyte abs 0.6 0.2 - 0.8 K/cumm [facility] Eosinophil abs 0.2 0.0 - 0.5 K/cumm [facility] Basophil abs 0.1 0.0 - 0.1 K/cumm [facility] Neutrophil pct 64.0 % [facility] Comment: Interpretive Data Percent cell count reference ranges are not reported, since discordance with absolute values may lead to misinterpretation of CBC data. Current Interpretive Data was last revised on 2017. Imm gran pct 0.4 % [facility] Comment: Interpretive Data Percent cell count reference ranges are not reported, since discordance with absolute values may lead to misinterpretation of CBC data. Current Interpretive Data was last revised on 2017. Lymphocyte pct 24.7 % [facility] Comment: Interpretive Data Percent cell count reference ranges are not reported, since discordance with absolute values may lead to misinterpretation of CBC data. Current Interpretive Data was last revised on 2017. Monocyte pct 7.4 % [facility] Comment: Interpretive Data Percent cell count reference ranges are not reported, since discordance with absolute values may lead to misinterpretation of CBC data. Current Interpretive Data was last revised on 2017. Eosinophil pct 2.9 % [facility] Comment: Interpretive Data Percent cell count reference ranges are not reported, since discordance with absolute values may lead to misinterpretation of CBC data. Current Interpretive Data was last revised on 2017. Basophil pct 0.6 % [facility] Comment: Interpretive Data Percent cell count reference ranges are not reported, since discordance with absolute values may lead to misinterpretation of CBC data. Current Interpretive Data was last revised on 2017. Blood 07/11/2024 7:25 AM HAND FRETTED INSTRUMENT MAKER 07/11/2024 8:03 AM HAND FRETTED INSTRUMENT MAKER us Tami Corona BARREL LATHE OPERATOR LAB BLOOD ORDERABLES Final Res ult [facility] [address] [facility] Department [place] [address] * (ABNORMAL) CBC with auto differential (07/11/2024 7:25 AM HAND FRETTED INSTRUMENT MAKER) WBC 7.9 3.8 - 9.9 K/cumm Hgb 14.0 13.0 - 17.5 g/dL [facility] Hct 41.2 38.9 - 50.3 % [facility] Plt 222 150 - 400 K/cumm [facility] MPV 9.3 9.1 - 12.3 fL [facility] RBC 4.30 4.30 - 5.80 M/cumm [facility] MCV 95.8 81.3 - 96.4 fL [facility] MCH 32.6 27.1 - 33.3 pg [facility] MCHC 34.0 32.3 - 35.7 g/dL [facility] RDW CV 13.8 11.1 - 14.9 % [facility] RDW SD 48.2(H) 35.7 - 48.1 fL [facility] NRBC abs 0.00 0.00 - 0.01 K/cumm [facility] Blood 07/11/2024 7:25 AM HAND FRETTED INSTRUMENT MAKER 07/11/2024 8:03 AM HAND FRETTED INSTRUMENT MAKER Tami Corona BARREL LATHE OPERATOR LAB BLOOD ORDERABLES Final Res ult Performing Organization Address [facility] [address]/[facility] Co de Phone Number [address] [address] * Magnesium (07/11/2024 7:25 AM HAND FRETTED INSTRUMENT MAKER) Magnesium 1.9 1.4 - 2.5 mg/dL Blood 07/11/2024 7:25 AM HAND FRETTED INSTRUMENT MAKER 07/11/2024 8:03 AM HAND FRETTED INSTRUMENT MAKER Tami Corona BARREL LATHE OPERATOR LAB BLOOD ORDERABLES Final Res ult Performing Organization Address [facility] [address]/[facility] de Phone Number [address] [address] * Lipid panel (07/11/2024 7:25 AM HAND FRETTED INSTRUMENT MAKER) Cholesterol 117 30 - 199 mg/dL [...] revised on 2018. Triglycerides 65 <=149 mg/dL [facility] Comment: Interpretive Data Ages < [...] on 2018. HDL 53 >=40 mg/dL [facility] Comment: Interpretive Data Ages < [...] 2018. LDL, calculated 50 <=129 mg/dL [facility] Comment: Interpretive Data Ages < [...] on 2024. Non-HDL Cholesterol 64 mg/dL [facility] Comment: Interpretive Data Ages [...] last revised on 2018. Chol/HDL ratio 2 [facility] Blood 07/11/2024 7:25 AM HAND FRETTED INSTRUMENT MAKER 07/11/2024 8:03 AM HAND FRETTED INSTRUMENT MAKER us Tami Corona BARREL LATHE OPERATOR LAB BLOOD ORDERABLES Final Res ult [facility] [address] [facility] Department [place] [address] * (ABNORMAL) Comprehensive metabolic panel (07/11/2024 7:25 AM HAND FRETTED INSTRUMENT MAKER) Sodium 142 135 - 145 mmol/L Potassium, pl 4.4 3.3 - 4.9 mmol/L [facility] Chloride 108 97 - 110 mmol/L [facility] CO2 23 22 - 32 mmol/L [facility] Anion gap 11 2 - 15 mmol/L [facility] BUN 22 6 - 25 mg/dL [facility] Creatinine 0.94 0.80 - 1.30 mg/dL [facility] Glucose 111 70 - 199 mg/dL [facility] Comment: Interpretive Data Fasting glucose >/= 126 [...] 2022. Calcium 9.4 8.5 - 10.3 mg/dL [facility] Bilirubin, total 0.2 0.1 - 1.2 mg/dL [facility] Protein, pl 6.1(L) 6.5 - 8.5 g/dL [facility] Albumin 3.7 3.5 - 5.0 g/dL [facility] Alk phos 80 40 - 130 Units/L [facility] ALT 14 7 - 55 Units/L [facility] AST 21 10 - 50 Units/L [facility] Blood 07/11/2024 7:25 AM HAND FRETTED INSTRUMENT MAKER 07/11/2024 8:03 AM HAND FRETTED INSTRUMENT MAKER us Tami Corona BARREL LATHE OPERATOR LAB BLOOD ORDERABLES Final Res ult [facility] [address] [facility] [place] [address] * PSA screen (04/20/2024 3:44 PM CDT) [...] data last revised 22. Testing performed by: [facility], [address] [place] [address]., [address] Blood 04/20/2024 3:44 PM CDT 04/20/2024 4:36 PM CDT us Nai Ramirez BARREL LATHE OPERATOR LAB BLOOD ORDERABLES Final Re sult [facility] [address] [facility] Department [place] [address] * CT Abdomen Pelvis WO Contrast (03/17/2023 [...] PM T: ??03/17/2023 11:09 PM Report ID: [id number] Reading Location: ??[id number] Procedure Note Joanne Flor MD - 03/17/2023 [...] by Joanne Flor M.D. SN: Report ID: [id number] Reading Location: [place] [address] Dale Kulkarni DO [facility] CT PROCEDURES Final Result * Hepatitis C antibody (12/22/2019 12:28 PM CDT) Hep C Ab NONREACT NONREACTIVE [facility] Comment: Siemens Me[employer] using DON (chemiluminescent immunoassay) technology. NONREACTIVE: Antibodies [...] MICROBIOLOGY - GENERAL OR DERABLES Final Result [address] [address], [facility] [phone] * COLONOSCOPY (01/14/2018) [facility] Colonoscopy Abnormal Comment:Dr. Cordova Historical Provider HEALTH MAINTENANCE Final Result from Last 3 Months or Most Recently Relevant to Health Maintenance Insurance MEDICARE MEDICARE SOLUTIONS [employer] MRA Advance Directives For more information, please contact: [phone] * Full Code (Latest Code Status on File) Date Activated Date Inactivated Comments 08/08/2023 3:15 PM 08/08/2023 8:39 PM * Full Code Date Activated Date Inactivated Comments 07/01/2023 11:54 AM 07/02/2023 6:55 PM * Full Code Date Activated Date Inactivated Comments 03/19/2023 10:34 AM 03/21/2023 7:04 PM Care Teams Glaze Mixer Relationship Specialty Start Date End Date Nai Ramirez NP [address] [facility] [address] [place] [address] PCP - General Internal Medicine 04/18/23 Vinh Chicas MD [address] [facility] [address] [place] [address] PCP - Cardiology Cardiovascular Disease 06/03/23 Nai Ramirez NP 04/28/19
--- OUTSIDE RECORDS SUMMARY | 2024-10-02 12:01 | XMS_ITS | Encounter Summary ---
Author Organization [facility] Facility Care Team Providers Care Service Engine Repairer Name Role Phone Rebel Jin MD Primary Care Provider [phone] Nai Ramirez PATTERN ASSEMBLER Primary Care Provider [phone] Rahul Marshall MD Primary Care Provider [phone] Nai Ramirez PATTERN ASSEMBLER Unavailable [phone] Rebel Jin MD Primary Care Provider [phone] Nai Ramirez PATTERN ASSEMBLER Primary Care Provider [phone] Nai Ramirez PATTERN ASSEMBLER Primary Care Provider [phone] Nai Ramirez PATTERN ASSEMBLER Primary Care Provider [phone] Vinh Chicas MD Unavailable Encounter Details Date Type Department Care Team (Latest Contact Info) Description 06/23/2018 Orders Only [facility] CLINCONV ProviderHailee MD [address] [place] [address] Social History Tobacco Use Types Packs/Day Years Used Date Smoking Tobacco: Former Sex and Gender Information Value Date Recorded Sex Assigned at Not on file Legal Sex Male 3:57 PM COTTON BALL BAGGER Gender Identity Male 01/08/2020 9:10 AM CDT Sexual Orientation Straight 01/08/2020 9: 10 AM CDT documented as of this encounter Plan of Treatment Not on file documented as of this encounter Procedures Procedure Name Priority Date/Time Associated Diagnosis Comments AUDIOLOGY RECORD 06/23/2018 12:0 0 AM CDT documented in this encounter Results * AUDIOLOGY RECORD (06/23/2018 12:00 AM CDT) Narrative 06/23/2018 12:00 AM CDT Ordered by an unspecified provider. us Historical Provider NURSING COMMUNICATION Fin al Result documented in this encounter Visit Diagnoses Not on filedocumented in this encounter Additional Health Concerns Infection Onset Date Last Indicated Resolved Time COVID: Suspected 10/16/2022 10/16/2022 10/16/2022 4:55 PM COTTON BALL BAGGER documented as of this encounter Care Teams Service Engine Repairer Relationship Specialty Start Date End Date Rebel Jin MD [address] [facility] [place] [place] [address] PCP - General 01/20/18 10/14/18 Nai Ramirez, CHRIS [address] [place] [address] [place] [address] PCP - General 10/15/18 04/27/19 Rahul Marshall MD [address] [facility] [place] [address] PCP - General 04/28/19 05/14/19 Rebel Jin MD [address] [facility] [place] [address] PCP - General Internal Medicine 05/15/19 10/06/19 Nai Ramirez NP [address] [place] [address] [place] [address] PCP - General 10/31/19 04/17/23 Nai Ramirez NP [address] [facility] [address] [place] [place] [address] PCP - General 10/07/19 10/30/19 Nai Ramirez, CHRIS [address] [place] [address] PCP - General Internal Medicine 04/18/23 Vinh Chicas MD [address] [place] [address] PCP - Cardiology Cardiovascular Disease 06/03/23 Nai Ramirez, CHRIS [address] [facility] [place] [address] 04/28/19 documented as of this encounter
--- OUTSIDE RECORDS SUMMARY | 2024-10-02 12:01 | XMS_ITS | Encounter Summary ---
Author Organization [facility] Facility Care Team Providers Care Propulsion Machinery Service Engineer Name Role Phone Rebel Jin MD Primary Care Provider [phone] Nai Ramirez CURTAIN STITCHER Primary Care Provider [phone] Rahul Marshall MD Primary Care Provider [phone] Nai Ramirez CURTAIN STITCHER Unavailable [phone] Rebel Jin MD Primary Care Provider [phone] Nai Ramirez CURTAIN STITCHER Primary Care Provider [phone] Nai Ramirez CURTAIN STITCHER Primary Care Provider [phone] Nai Ramirez CURTAIN STITCHER Primary Care Provider [phone] Vinh Chicas MD Unavailable Encounter Details Date Type Department Care Team (Latest Contact Info) Description 10/09/2016 Orders Only [facility] CLINCONV ProviderHailee MD [address] [place] [address] Social History Tobacco Use Types Packs/Day Years Used Date Smoking Tobacco: Former Sex and Gender Information Value Date Recorded Sex Assigned at Not on file Legal Sex 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 us Historical Provider [facility]OCIO Final Result documented in this encounter Visit Diagnoses Not on filedocumented in this encounter Additional Health Concerns Infection Onset Date Last Indicated Resolved Time COVID: Suspected 10/16/2022 10/16/2022 10/16/2022 4:55 PM HONING MACHINE OPERATOR TOOL documented as of this encounter Care Teams Propulsion Machinery Service Engineer Relationship Specialty Start Date End Date Rebel Jin MD [address] [facility] [place] [address] PCP - General 01/20/18 10/14/18 Nai Ramirez, CURTAIN STITCHER [address] [facility] [address] [place] [address] PCP - General 10/15/18 04/27/19 Rahul Marshall MD [facility] [place] [address] PCP - General 04/28/19 05/14/19 Rebel Jin MD [address] [facility] [place] [place] [address] PCP - General Internal Medicine 05/15/19 10/06/19 Nai Ramirez NP [address] [facility] [place] [place] [address] PCP - General 10/31/19 04/17/23 Nai Ramirez CURTAIN STITCHER [address] [facility] [place] [place] [address] PCP - General 10/07/19 10/30/19 Nai Ramirez NP [address] [place] [address] PCP - General Internal Medicine 04/18/23 Vinh Chicas MD [address] [place], [place] [id number] PCP - Cardiology Cardiovascular Disease 06/03/23 Nai Ramirez, CHRIS [address] [facility] [place] [address] 04/28/19 documented as of this encounter
--- OUTSIDE RECORDS SUMMARY | 2024-10-02 12:01 | XMS_ITS | Encounter Summary ---
Author Organization [facility] Facility Care Team Providers Care Release Engineer Name Role Phone Rebel Jin MD Primary Care Provider [phone] Nai Ramirez CIRCUS SUPERVISOR Primary Care Provider [phone] Rahul Marshall MD Primary Care Provider [phone] Nai Ramirez CIRCUS SUPERVISOR Unavailable [phone] Rebel Jin MD Primary Care Provider [phone] Nai Ramirez CIRCUS SUPERVISOR Primary Care Provider [phone] Nai Ramirez CIRCUS SUPERVISOR Primary Care Provider [phone] Nai Ramirez CIRCUS SUPERVISOR Primary Care Provider [phone] Vinh Chicas MD Unavailable Encounter Details Date Type Department Care Team (Latest Contact Info) Description 10/01/2017 Orders Only [facility] CLINCONV ProviderHailee MD [address] [place] [address] Social History Tobacco Use Types Packs/Day Years Used Date Smoking Tobacco: Former Sex and Gender Information Value Date Recorded Sex Assigned at Not on file 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 us Historical Provider Final Res ult documented in this encounter Visit Diagnoses Not on filedocumented in this encounter Additional Health Concerns Infection Onset Date Last Indicated Resolved Time COVID: Suspected 10/16/2022 10/16/2022 10/16/2022 4:55 PM FOOD CONSULTANT documented as of this encounter Care Teams Release Engineer Relationship Specialty Start Date End Date Rebel Jin MD [facility] [place] [address] PCP - General 01/20/18 10/14/18 Nai Ramirez NP [address] [place] [address] [place] [address] PCP - General 10/15/18 04/27/19 Rahul Marshall MD [address] [place] [address] [place] [address] PCP - General 04/28/19 05/14/19 Rebel Jin MD [address] [place] [address] [place] [address] PCP - General Internal Medicine 05/15/19 10/06/19 Nai Ramirez NP [address] [place] [address] [place] [address] PCP - General 10/31/19 04/17/23 Nai Ramirez NP [address] [place] [address] PCP - General 10/07/19 10/30/19 Nai Ramirez, CHRIS [address] [place] [address] PCP - General Internal Medicine 04/18/23 Vinh Chicas MD [address] [place] [address] PCP - Cardiology Cardiovascular Disease 06/03/23 Nai Ramirez, CIRCUS SUPERVISOR [address] [place] [address] 04/28/19 documented as of this encounter
--- OUTSIDE RECORDS SUMMARY | 2024-10-02 12:01 | XMS_ITS | Encounter Summary ---
Author Organization [facility] Facility Care Team Providers Care Equipment Driver Name Role Phone Rebel Jin MD Primary Care Provider [phone] Nai Ramirez CREDIT RISK REVIEW OFFICER Primary Care Provider [phone] Rahul Marshall MD Primary Care Provider [phone] Nai Ramirez CREDIT RISK REVIEW OFFICER Unavailable [phone] Rebel Jin MD Primary Care Provider [phone] Nai Ramirez CREDIT RISK REVIEW OFFICER Primary Care Provider [phone] Nai Ramirez CREDIT RISK REVIEW OFFICER Primary Care Provider [phone] Nai Ramirez CREDIT RISK REVIEW OFFICER Primary Care Provider [phone] Vinh Chicas MD Unavailable Encounter Details Date Type Department Care Team (Latest Contact Info) Description 04/16/2018 Orders Only [facility] CLINCONV ProviderHailee MD [address] [place] [address] Social History Tobacco Use Types Packs/Day Years Used Date Smoking Tobacco: Former Sex and Gender Information Value Date Recorded Sex Assigned at Not on file 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 us Historical Provider Final Res ult documented in this encounter Visit Diagnoses Not on filedocumented in this encounter Additional Health Concerns Infection Onset Date Last Indicated Resolved Time COVID: Suspected 10/16/2022 10/16/2022 10/16/2022 4:55 PM AUTOMOTIVE PRODUCTION WORKER documented as of this encounter Care Teams Equipment Driver Relationship Specialty Start Date End Date Rebel Jin MD [facility] [facility] [place] [address] PCP - General 01/20/18 10/14/18 Nai Ramirez NP [address] [place] [address] [place] [address] PCP - General 10/15/18 04/27/19 Rahul Marshall MD [address] [place] [address] [place] [address] PCP - General 04/28/19 05/14/19 Rebel Jin MD [address] [place] [address] [place] [address] PCP - General Internal Medicine 05/15/19 10/06/19 Nai Ramirez NP [address] [place] [address] [place] [address] PCP - General 10/31/19 04/17/23 Nai Ramirez NP [address] [facility] [address] [place] [address] PCP - General 10/07/19 10/30/19 Nai Ramirez, CREDIT RISK REVIEW OFFICER [address] [place] [address] PCP - General Internal Medicine 04/18/23 Vinh Chicas MD [address] [place] [address] PCP - Cardiology Cardiovascular Disease 06/03/23 Nai Ramirez, CREDIT RISK REVIEW OFFICER [address] [facility] [place] [address] 04/28/19 documented as of this encounter
--- OUTSIDE RECORDS SUMMARY | 2024-10-02 12:01 | XMS_ITS | Patient Health Summary ---
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 from a concurrently performed body CT and sent to the workstation for review. CT dose reduction technique was used, including Automated Exposure Control. COMPARISON: No prior study is available for comparison at the time of this dictation. FINDINGS: Head: No acute intra- or extra-axial fluid collections are identified. There is mild cerebral volume loss with associated ex vacuo ventricular dilatation. The basilar cisterns are patent. No mass effect or midline shift is seen. The soria-white matter differentiation is normal. Periventricular white matter hypoattenuation is indicative of chronic small vessel ischemic disease. There is vascular calcification of the carotid siphons. No acute calvarial fracture is identified. Small scalp hematoma along the left posterior parieto-occipital scalp. Scalp hematoma along the right frontal supraorbital region with possible associated ulceration or small nodule. Focal skin thickening along the right submandibular region. Small laceration along the left walton and submandibular region. Maxillofacial: The orbits appear normal. There is mild paranasal sinus disease. The patient is edentulous. Focal hypodensity in the right mandible likely represent cysts a small bone island. The hard palate, mandible, and temporomandibular joints appear otherwise grossly. There are age indeterminate fracture deformities of the nasal bones. No additional facial bone fractures are identified. The mastoid air cells are grossly clear. No soft tissue abnormality is identified. Cervical spine: Trace anterolisthesis of C4 on C5 and minimal retrolisthesis of C5 on C6. The alignment is otherwise maintained. Vertebral bodies are normal in height without evidence of acute fracture. Other than middle atlantoaxial joint osteoarthritis, the craniocervical junction appears normal. There is mild degenerative disc disease. No central canal stenosis is seen. There are varying degrees of mild facet osteoarthritis. There are varying degrees of mild to advanced uncovertebral joint osteoarthritis, worst at C5-C6, right more than left with the same degree of neural foraminal stenosis at this level. There is paraseptal emphysema and mild scarring in the lung apices. Thoracic spine: The alignment is maintained. Mild bone demineralization. Vertebral bodies are normal in height without evidence of acute fracture. There is mild degenerative disc disease. Schmorl's nodes are present at multiple levels. No central canal stenosis is seen. There are varying degrees of mild facet osteoarthritis. There are varying degrees of neural foraminal stenosis at multiple levels. There is subsegmental atelectasis in the dependent portions of the lung bases. Lumbar spine: There are postoperative findings of anterior discectomy and fusion at L5-S1 with a disc spacer in place. The hardware appears grossly intact. Suspected trace anterolisthesis of L3 on L4 and trace retrolisthesis of L4 on L5 and L5 on S1. Mild levocurvature of the lumbar spine. The alignment is otherwise maintained. 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 Vertebral bodies are normal in height without evidence of acute fracture. There is mild degenerative disc disease. There is diffuse disc bulge at multiple levels. Mild multilevel central canal stenosis is seen, worst at L3-4 where there is up to severe spinal canal stenosis due to diffuse disc bulge, hypertrophy of the ligamentum flavum, and facet hypertrophy. There is mild lateral recess stenosis. Left paracentral disc protrusion at L5-S1 results in moderate spinal canal and moderate left lateral recess stenosis. Additionally, at L4-5, there is mild to moderate spinal canal stenosis and moderate to severe bilateral lateral recess stenosis.. There are varying degrees of mild to advanced facet osteoarthritis. There are varying degrees of neural foraminal stenosis at multiple levels. Gallbladder stones are noted. There are degenerative changes of the SI joints. Partially imaged degenerative changes of the hip joints. There is atherosclerotic calcification of the abdominal aorta and its branch vessels. Procedure Note Luis Luther MD - 02/22/2023 PROCEDURE: CT HEAD WO CONTRAST, CT FACIAL BONES WO CONTRAST, CTCERVICAL SPINE WO CONTRAST, CT THORACIC SPINE WO CONTRAST, CT LUMBAR SPINE WO CONTRAST, DATE/TIME OF EXAM: 02/22/2023 3:17 PM, LOCATION [facility] INDICATION: Trauma EXAMINATION: 1. Computed tomography (CT) of the head without contrast 2. CT of the maxillofacial bones, orbits, and paranasal sinuses without contrast 3. CT of the cervical spine without contrast 4. CT of the thoracic spine without contrast 5. CT of the lumbar spine without contrast ADDITIONAL CLINICAL INFORMATION: Ordering Provider Reason For Exam: Trauma. Technologist Note: None. Additional: None. TECHNIQUE: CT of the head, cervical spine, and maxillofacial bones,orbits, and paranasal sinuses was performed without contrast according tostandard protocol. Reformatted axial, sagittal, and coronal images of thethoracic and lumbar spine were obtained by the technologist from a concurrently performed body CT and sent to the workstation for review. CT dosereduction technique was used, including Automated Exposure Control. COMPARISON: No prior study is available for comparison at the time ofthis dictation. FINDINGS: Head: No acute intra- or extra-axial fluid collections are identified. Thereis mild cerebral volume loss with associated ex vacuo ventriculardilatation. The basilar cisterns are patent. No mass effect or midline shift isseen. The soria-white matter differentiation is normal. Periventricular white matter hypoattenuation is indicative of chronic small vessel ischemic disease. There is vascular calcification of the carotid siphons. Noacute calvarial fracture is identified. Small scalp hematoma along the left posterior parieto-occipital scalp. Scalp hematoma along the rightfrontal supraorbital region with possible associated ulceration or small nodule. Focal skin thickening along the right submandibular region. Small laceration along the left walton and submandibular region. Maxillofacial: The orbits appear normal. There is mild paranasal sinus disease. The patient is edentulous. Focal hypodensity in the right mandible likely represent cysts a small bone island. The hard palate, mandible, and temporomandibular joints appear otherwise grossly. There are age indeterminate fracture deformities of the nasal bones. No additionalfacial bone fractures are identified. The mastoid air cells are grossly clear.No soft tissue abnormality is identified. Cervical spine: Trace anterolisthesis of C4 on C5 and minimal retrolisthesis of C5 onC6. The alignment is otherwise maintained. Vertebral bodies are normal in height without evidence of acute fracture. Other than middleatlantoaxial joint osteoarthritis, the craniocervical junction appears normal. Thereis mild degenerative disc disease. No central canal stenosis is seen. There are varying degrees of mild facet osteoarthritis. There are varyingdegrees of mild to advanced uncovertebral joint osteoarthritis, worst at C5-C6, right more than left with the same degree of neural foraminal stenosisat this level. There is paraseptal emphysema and mild scarring in the lung apices. Thoracic spine: The alignment is maintained. Mild bone demineralization. Vertebralbodies are normal in height without evidence of acute fracture. There is mild degenerative disc disease. Schmorl's nodes are present at multiplelevels. No central canal stenosis is seen. There are varying degrees of mildfacet osteoarthritis. There are varying degrees of neural foraminal stenosisat multiple levels. There is subsegmental atelectasis in the dependent portions of the lung bases. Lumbar spine: There are postoperative findings of anterior discectomy and fusion atL5-S1 with a disc spacer in place. The hardware appears grossly intact. Suspected trace anterolisthesis of L3 on L4 and trace retrolisthesis ofL4 on L5 and L5 on S1. Mild levocurvature of the lumbar spine. Thealignment is otherwise maintained. 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 Vertebral bodies are normal in height without evidenceof acute fracture. There is mild degenerative disc disease. There isdiffuse disc bulge at multiple levels. Mild multilevel central canal stenosis is seen, worst at L3-4 where there is up to severe spinal canal stenosisdue to diffuse disc bulge, hypertrophy of the ligamentum flavum, and facet hypertrophy. There is mild lateral recess stenosis. Left paracentraldisc protrusion at L5-S1 results in moderate spinal canal and moderate left lateral recess stenosis. Additionally, at L4-5, there is mild tomoderate spinal canal stenosis and moderate to severe bilateral lateral recess stenosis.. There are varying degrees of mild to advanced facet osteoarthritis. There are varying degrees of neural foraminal stenosisat multiple levels. Gallbladder stones are noted. There are degenerative changes of the SI joints. Partially imaged degenerative changes of thehip joints. There is atherosclerotic calcification of the abdominal aortaand its branch vessels. IMPRESSION: 1.No acute intracranial hemorrhage, midline shift, or significant mass effect. 2.Age-indeterminate fracture deformities of the nasal bones. 3.Otherwise, no acute facial bone fractures identified. 4.No evidence of acute fracture in the cervical, thoracic, or lumbarspine. 5.Multilevel degenerative disc and joint disease as detailed above. 6.Please refer to concurrent, dedicated body report for findings in the chest, abdomen, and pelvis. > Interpreting Provider: Luis Luther MD on 02/22/2023 4:36 PM Balta Solo MD CT ORDERABLES * CT THORACIC SPINE WO CONTRAST - T/L-spine trauma, spine fracture (02/22/2023 3:37 PM CDT) Anatomical Region Laterality Modality Spine Computed Tomogra phy 02/22/2023 3:28 PM CDT Impressions 02/22/2023 4:36 PM CDT IMPRESSION: 1.No acute intracranial hemorrhage, midline shift, or significant mass effect. 2.Age-indeterminate fracture deformities of the nasal bones. 3.Otherwise, no acute facial bone fractures identified. 4.No evidence of acute fracture in the cervical, thoracic, or lumbar spine. 5.Multilevel degenerative disc and joint disease as detailed above. 6.Please refer to concurrent, dedicated body report for findings in the chest, abdomen, and pelvis. > Interpreting Provider: Luis Luther MD on 02/22/2023 4:36 PM Narrative 02/22/2023 4:36 PM CDT PROCEDURE: ??CT HEAD WO CONTRAST, CT FACIAL BONES WO CONTRAST, CT CERVICAL SPINE WO CONTRAST, CT THORACIC SPINE WO CONTRAST, CT LUMBAR SPINE WO CONTRAST, DATE/TIME OF EXAM: ??02/22/2023 3:17 PM, LOCATION ??[facility] INDICATION: Trauma EXAMINATION: 1. Computed tomography (CT) of the head without contrast 2. CT of the maxillofacial bones, orbits, and paranasal sinuses without contrast 3. CT of the cervical spine without contrast 4. CT of the thoracic spine without contrast 5. CT of the lumbar spine without contrast ADDITIONAL CLINICAL INFORMATION: Ordering Provider Reason For Exam: ??Trauma. Technologist Note: ??None. Additional: ??None. TECHNIQUE: CT of the head, cervical spine, and maxillofacial bones, orbits, and paranasal sinuses was performed without contrast according to standard protocol. Reformatted axial, sagittal, and coronal images of the thoracic and lumbar spine were obtained by the technologist from a concurrently performed body CT and sent to the workstation for review. CT dose reduction technique was used, including Automated Exposure Control. COMPARISON: No prior study is available for comparison at the time of this dictation. FINDINGS: Head: No acute intra- or extra-axial fluid collections are identified. There is mild cerebral volume loss with associated ex vacuo ventricular dilatation. The basilar cisterns are patent. No mass effect or midline shift is seen. The soria-white matter differentiation is normal. Periventricular white matter hypoattenuation is indicative of chronic small vessel ischemic disease. There is vascular calcification of the carotid siphons. No acute calvarial fracture is identified. Small scalp hematoma along the left posterior parieto-occipital scalp. Scalp hematoma along the right frontal supraorbital region with possible associated ulceration or small nodule. Focal skin thickening along the right submandibular region. Small laceration along the left walton and submandibular region. Maxillofacial: The orbits appear normal. There is mild paranasal sinus disease. The patient is edentulous. Focal hypodensity in the right mandible likely represent cysts a small bone island. The hard palate, mandible, and temporomandibular joints appear otherwise grossly. There are age indeterminate fracture deformities of the nasal bones. No additional facial bone fractures are identified. The mastoid air cells are grossly clear. No soft tissue abnormality is identified. Cervical spine: Trace anterolisthesis of C4 on C5 and minimal retrolisthesis of C5 on C6. The alignment is otherwise maintained. Vertebral bodies are normal in height without evidence of acute fracture. Other than middle atlantoaxial joint osteoarthritis, the craniocervical junction appears normal. There is mild degenerative disc disease. No central canal stenosis is seen. There are varying degrees of mild facet osteoarthritis. There are varying degrees of mild to advanced uncovertebral joint osteoarthritis, worst at C5-C6, right more than left with the same degree of neural foraminal stenosis at this level. There is paraseptal emphysema and mild scarring in the lung apices. Thoracic spine: The alignment is maintained. Mild bone demineralization. Vertebral bodies are normal in height without evidence of acute fracture. There is mild degenerative disc disease. Schmorl's nodes are present at multiple levels. No central canal stenosis is seen. There are varying degrees of mild facet osteoarthritis. There are varying degrees of neural foraminal stenosis at multiple levels. There is subsegmental atelectasis in the dependent portions of the lung bases. Lumbar spine: There are postoperative findings of anterior discectomy and fusion at L5-S1 with a disc spacer in place. The hardware appears grossly intact. Suspected trace anterolisthesis of L3 on L4 and trace retrolisthesis of L4 on L5 and L5 on S1. Mild levocurvature of the lumbar spine. The alignment is otherwise maintained. 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 Vertebral bodies are normal in height without evidence of acute fracture. There is mild degenerative disc disease. There is diffuse disc bulge at multiple levels. Mild multilevel central canal stenosis is seen, worst at L3-4 where there is up to severe spinal canal stenosis due to diffuse disc bulge, hypertrophy of the ligamentum flavum, and facet hypertrophy. There is mild lateral recess stenosis. Left paracentral disc protrusion at L5-S1 results in moderate spinal canal and moderate left lateral recess stenosis. Additionally, at L4-5, there is mild to moderate spinal canal stenosis and moderate to severe bilateral lateral recess stenosis.. There are varying degrees of mild to advanced facet osteoarthritis. There are varying degrees of neural foraminal stenosis at multiple levels. Gallbladder stones are noted. There are degenerative changes of the SI joints. Partially imaged degenerative changes of the hip joints. There is atherosclerotic calcification of the abdominal aorta and its branch vessels. Procedure Note Luis Luther MD - 02/22/2023 PROCEDURE: CT HEAD WO CONTRAST, CT FACIAL BONES WO CONTRAST, CTCERVICAL SPINE WO CONTRAST, CT THORACIC SPINE WO CONTRAST, CT LUMBAR SPINE WO CONTRAST, DATE/TIME OF EXAM: 02/22/2023 3:17 PM, LOCATION [facility] INDICATION: Trauma EXAMINATION: 1. Computed tomography (CT) of the head without contrast 2. CT of the maxillofacial bones, orbits, and paranasal sinuses without contrast 3. CT of the cervical spine without contrast 4. CT of the thoracic spine without contrast 5. CT of the lumbar spine without contrast ADDITIONAL CLINICAL INFORMATION: Ordering Provider Reason For Exam: Trauma. Technologist Note: None. Additional: None. TECHNIQUE: CT of the head, cervical spine, and maxillofacial bones,orbits, and paranasal sinuses was performed without contrast according tostandard protocol. Reformatted axial, sagittal, and coronal images of thethoracic and lumbar spine were obtained by the technologist from a concurrently performed body CT and sent to the workstation for review. CT dosereduction technique was used, including Automated Exposure Control. COMPARISON: No prior study is available for comparison at the time ofthis dictation. FINDINGS: Head: No acute intra- or extra-axial fluid collections are identified. Thereis mild cerebral volume loss with associated ex vacuo ventriculardilatation. The basilar cisterns are patent. No mass effect or midline shift isseen. The soria-white matter differentiation is normal. Periventricular white matter hypoattenuation is indicative of chronic small vessel ischemic disease. There is vascular calcification of the carotid siphons. Noacute calvarial fracture is identified. Small scalp hematoma along the left posterior parieto-occipital scalp. Scalp hematoma along the rightfrontal supraorbital region with possible associated ulceration or small nodule. Focal skin thickening along the right submandibular region. Small laceration along the left walton and submandibular region. Maxillofacial: The orbits appear normal. There is mild paranasal sinus disease. The patient is edentulous. Focal hypodensity in the right mandible likely represent cysts a small bone island. The hard palate, mandible, and temporomandibular joints appear otherwise grossly. There are age indeterminate fracture deformities of the nasal bones. No additionalfacial bone fractures are identified. The mastoid air cells are grossly clear.No soft tissue abnormality is identified. Cervical spine: Trace anterolisthesis of C4 on C5 and minimal retrolisthesis of C5 onC6. The alignment is otherwise maintained. Vertebral bodies are normal in height without evidence of acute fracture. Other than middleatlantoaxial joint osteoarthritis, the craniocervical junction appears normal. Thereis mild degenerative disc disease. No central canal stenosis is seen. There are varying degrees of mild facet osteoarthritis. There are varyingdegrees of mild to advanced uncovertebral joint osteoarthritis, worst at C5-C6, right more than left with the same degree of neural foraminal stenosisat this level. There is paraseptal emphysema and mild scarring in the lung apices. Thoracic spine: The alignment is maintained. Mild bone demineralization. Vertebralbodies are normal in height without evidence of acute fracture. There is mild degenerative disc disease. Schmorl's nodes are present at multiplelevels. No central canal stenosis is seen. There are varying degrees of mildfacet osteoarthritis. There are varying degrees of neural foraminal stenosisat multiple levels. There is subsegmental atelectasis in the dependent portions of the lung bases. Lumbar spine: There are postoperative findings of anterior discectomy and fusion atL5-S1 with a disc spacer in place. The hardware appears grossly intact. Suspected trace anterolisthesis of L3 on L4 and trace retrolisthesis ofL4 on L5 and L5 on S1. Mild levocurvature of the lumbar spine. Thealignment is otherwise maintained. 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 Vertebral bodies are normal in height without evidenceof acute fracture. There is mild degenerative disc disease. There isdiffuse disc bulge at multiple levels. Mild multilevel central canal stenosis is seen, worst at L3-4 where there is up to severe spinal canal stenosisdue to diffuse disc bulge, hypertrophy of the ligamentum flavum, and facet hypertrophy. There is mild lateral recess stenosis. Left paracentraldisc protrusion at L5-S1 results in moderate spinal canal and moderate left lateral recess stenosis. Additionally, at L4-5, there is mild tomoderate spinal canal stenosis and moderate to severe bilateral lateral recess stenosis.. There are varying degrees of mild to advanced facet osteoarthritis. There are varying degrees of neural foraminal stenosisat multiple levels. Gallbladder stones are noted. There are degenerative changes of the SI joints. Partially imaged degenerative changes of thehip joints. There is atherosclerotic calcification of the abdominal aortaand its branch vessels. IMPRESSION: 1.No acute intracranial hemorrhage, midline shift, or significant mass effect. 2.Age-indeterminate fracture deformities of the nasal bones. 3.Otherwise, no acute facial bone fractures identified. 4.No evidence of acute fracture in the cervical, thoracic, or lumbarspine. 5.Multilevel degenerative disc and joint disease as detailed above. 6.Please refer to concurrent, dedicated body report for findings in the chest, abdomen, and pelvis. > Interpreting Provider: Luis Luther MD on 02/22/2023 4:36 PM Balta Solo MD CT ORDERABLES * CT CERVICAL SPINE WO CONTRAST - C-Spine Trauma, Spine fracture (02/22/2023 3:37 PM CDT) Anatomical Region Laterality Modality Spine Computed Tomogra phy 02/22/2023 3:28 PM CDT Impressions 02/22/2023 4:36 PM CDT IMPRESSION: 1.No acute intracranial hemorrhage, midline shift, or significant mass effect. 2.Age-indeterminate fracture deformities of the nasal bones. 3.Otherwise, no acute facial bone fractures identified. 4.No evidence of acute fracture in the cervical, thoracic, or lumbar spine. 5.Multilevel degenerative disc and joint disease as detailed above. 6.Please refer to concurrent, dedicated body report for findings in the chest, abdomen, and pelvis. > Interpreting Provider: Luis Luther MD on 02/22/2023 4:36 PM Narrative 02/22/2023 4:36 PM CDT PROCEDURE: ??CT HEAD WO CONTRAST, CT FACIAL BONES WO CONTRAST, CT CERVICAL SPINE WO CONTRAST, CT THORACIC SPINE WO CONTRAST, CT LUMBAR SPINE WO CONTRAST, DATE/TIME OF EXAM: ??02/22/2023 3:17 PM, LOCATION ??[facility] INDICATION: Trauma EXAMINATION: 1. Computed tomography (CT) of the head without contrast 2. CT of the maxillofacial bones, orbits, and paranasal sinuses without contrast 3. CT of the cervical spine without contrast 4. CT of the thoracic spine without contrast 5. CT of the lumbar spine without contrast ADDITIONAL CLINICAL INFORMATION: Ordering Provider Reason For Exam: ??Trauma. Technologist Note: ??None. Additional: ??None. TECHNIQUE: CT of the head, cervical spine, and maxillofacial bones, orbits, and paranasal sinuses was performed without contrast according to standard protocol. Reformatted axial, sagittal, and coronal images of the thoracic and lumbar spine were obtained by the technologist from a concurrently performed body CT and sent to the workstation for review. CT dose reduction technique was used, including Automated Exposure Control. COMPARISON: No prior study is available for comparison at the time of this dictation. FINDINGS: Head: No acute intra- or extra-axial fluid collections are identified. There is mild cerebral volume loss with associated ex vacuo ventricular dilatation. The basilar cisterns are patent. No mass effect or midline shift is seen. The soria-white matter differentiation is normal. Periventricular white matter hypoattenuation is indicative of chronic small vessel ischemic disease. There is vascular calcification of the carotid siphons. No acute calvarial fracture is identified. Small scalp hematoma along the left posterior parieto-occipital scalp. Scalp hematoma along the right frontal supraorbital region with possible associated ulceration or small nodule. Focal skin thickening along the right submandibular region. Small laceration along the left walton and submandibular region. Maxillofacial: The orbits appear normal. There is mild paranasal sinus disease. The patient is edentulous. Focal hypodensity in the right mandible likely represent cysts a small bone island. The hard palate, mandible, and temporomandibular joints appear otherwise grossly. There are age indeterminate fracture deformities of the nasal bones. No additional facial bone fractures are identified. The mastoid air cells are grossly clear. No soft tissue abnormality is identified. Cervical spine: Trace anterolisthesis of C4 on C5 and minimal retrolisthesis of C5 on C6. The alignment is otherwise maintained. Vertebral bodies are normal in height without evidence of acute fracture. Other than middle atlantoaxial joint osteoarthritis, the craniocervical junction appears normal. There is mild degenerative disc disease. No central canal stenosis is seen. There are varying degrees of mild facet osteoarthritis. There are varying degrees of mild to advanced uncovertebral joint osteoarthritis, worst at C5-C6, right more than left with the same degree of neural foraminal stenosis at this level. There is paraseptal emphysema and mild scarring in the lung apices. Thoracic spine: The alignment is maintained. Mild bone demineralization. Vertebral bodies are normal in height without evidence of acute fracture. There is mild degenerative disc disease. Schmorl's nodes are present at multiple levels. No central canal stenosis is seen. There are varying degrees of mild facet osteoarthritis. There are varying degrees of neural foraminal stenosis at multiple levels. There is subsegmental atelectasis in the dependent portions of the lung bases. Lumbar spine: There are postoperative findings of anterior discectomy and fusion at L5-S1 with a disc spacer in place. The hardware appears grossly intact. Suspected trace anterolisthesis of L3 on L4 and trace retrolisthesis of L4 on L5 and L5 on S1. Mild levocurvature of the lumbar spine. The alignment is otherwise maintained. 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 Vertebral bodies are normal in height without evidence of acute fracture. There is mild degenerative disc disease. There is diffuse disc bulge at multiple levels. Mild multilevel central canal stenosis is seen, worst at L3-4 where there is up to severe spinal canal stenosis due to diffuse disc bulge, hypertrophy of the ligamentum flavum, and facet hypertrophy. There is mild lateral recess stenosis. Left paracentral disc protrusion at L5-S1 results in moderate spinal canal and moderate left lateral recess stenosis. Additionally, at L4-5, there is mild to moderate spinal canal stenosis and moderate to severe bilateral lateral recess stenosis.. There are varying degrees of mild to advanced facet osteoarthritis. There are varying degrees of neural foraminal stenosis at multiple levels. Gallbladder stones are noted. There are degenerative changes of the SI joints. Partially imaged degenerative changes of the hip joints. There is atherosclerotic calcification of the abdominal aorta and its branch vessels. Procedure Note Luis Luther MD - 02/22/2023 PROCEDURE: CT HEAD WO CONTRAST, CT FACIAL BONES WO CONTRAST, CTCERVICAL SPINE WO CONTRAST, CT THORACIC SPINE WO CONTRAST, CT LUMBAR SPINE WO CONTRAST, DATE/TIME OF EXAM: 02/22/2023 3:17 PM, LOCATION [facility] INDICATION: Trauma EXAMINATION: 1. Computed tomography (CT) of the head without contrast 2. CT of the maxillofacial bones, orbits, and paranasal sinuses without contrast 3. CT of the cervical spine without contrast 4. CT of the thoracic spine without contrast 5. CT of the lumbar spine without contrast ADDITIONAL CLINICAL INFORMATION: Ordering Provider Reason For Exam: Trauma. Technologist Note: None. Additional: None. TECHNIQUE: CT of the head, cervical spine, and maxillofacial bones,orbits, and paranasal sinuses was performed without contrast according tostandard protocol. Reformatted axial, sagittal, and coronal images of thethoracic and lumbar spine were obtained by the technologist from a concurrently performed body CT and sent to the workstation for review. CT dosereduction technique was used, including Automated Exposure Control. COMPARISON: No prior study is available for comparison at the time ofthis dictation. FINDINGS: Head: No acute intra- or extra-axial fluid collections are identified. Thereis mild cerebral volume loss with associated ex vacuo ventriculardilatation. The basilar cisterns are patent. No mass effect or midline shift isseen. The soria-white matter differentiation is normal. Periventricular white matter hypoattenuation is indicative of chronic small vessel ischemic disease. There is vascular calcification of the carotid siphons. Noacute calvarial fracture is identified. Small scalp hematoma along the left posterior parieto-occipital scalp. Scalp hematoma along the rightfrontal supraorbital region with possible associated ulceration or small nodule. Focal skin thickening along the right submandibular region. Small laceration along the left walton and submandibular region. Maxillofacial: The orbits appear normal. There is mild paranasal sinus disease. The patient is edentulous. Focal hypodensity in the right mandible likely represent cysts a small bone island. The hard palate, mandible, and temporomandibular joints appear otherwise grossly. There are age indeterminate fracture deformities of the nasal bones. No additionalfacial bone fractures are identified. The mastoid air cells are grossly clear.No soft tissue abnormality is identified. Cervical spine: Trace anterolisthesis of C4 on C5 and minimal retrolisthesis of C5 onC6. The alignment is otherwise maintained. Vertebral bodies are normal in height without evidence of acute fracture. Other than middleatlantoaxial joint osteoarthritis, the craniocervical junction appears normal. Thereis mild degenerative disc disease. No central canal stenosis is seen. There are varying degrees of mild facet osteoarthritis. There are varyingdegrees of mild to advanced uncovertebral joint osteoarthritis, worst at C5-C6, right more than left with the same degree of neural foraminal stenosisat this level. There is paraseptal emphysema and mild scarring in the lung apices. Thoracic spine: The alignment is maintained. Mild bone demineralization. Vertebralbodies are normal in height without evidence of acute fracture. There is mild degenerative disc disease. Schmorl's nodes are present at multiplelevels. No central canal stenosis is seen. There are varying degrees of mildfacet osteoarthritis. There are varying degrees of neural foraminal stenosisat multiple levels. There is subsegmental atelectasis in the dependent portions of the lung bases. Lumbar spine: There are postoperative findings of anterior discectomy and fusion atL5-S1 with a disc spacer in place. The hardware appears grossly intact. Suspected trace anterolisthesis of L3 on L4 and trace retrolisthesis ofL4 on L5 and L5 on S1. Mild levocurvature of the lumbar spine. Thealignment is otherwise maintained. 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 Vertebral bodies are normal in height without evidenceof acute fracture. There is mild degenerative disc disease. There isdiffuse disc bulge at multiple levels. Mild multilevel central canal stenosis is seen, worst at L3-4 where there is up to severe spinal canal stenosisdue to diffuse disc bulge, hypertrophy of the ligamentum flavum, and facet hypertrophy. There is mild lateral recess stenosis. Left paracentraldisc protrusion at L5-S1 results in moderate spinal canal and moderate left lateral recess stenosis. Additionally, at L4-5, there is mild tomoderate spinal canal stenosis and moderate to severe bilateral lateral recess stenosis.. There are varying degrees of mild to advanced facet osteoarthritis. There are varying degrees of neural foraminal stenosisat multiple levels. Gallbladder stones are noted. There are degenerative changes of the SI joints. Partially imaged degenerative changes of thehip joints. There is atherosclerotic calcification of the abdominal aortaand its branch vessels. IMPRESSION: 1.No acute intracranial hemorrhage, midline shift, or significant mass effect. 2.Age-indeterminate fracture deformities of the nasal bones. 3.Otherwise, no acute facial bone fractures identified. 4.No evidence of acute fracture in the cervical, thoracic, or lumbarspine. 5.Multilevel degenerative disc and joint disease as detailed above. 6.Please refer to concurrent, dedicated body report for findings in the chest, abdomen, and pelvis. > Interpreting Provider: Luis Luther MD on 02/22/2023 4:36 PM Balta Solo MD CT ORDERABLES * CT FACIAL BONES WO CONTRAST - Facial trauma, fx suspected, blunt (02/22/2023 3:37 PM CDT) Anatomical Region Laterality Modality Head Computed Tomogra phy 02/22/2023 3:28 PM CDT Impressions 02/22/2023 4:36 PM CDT IMPRESSION: 1.No acute intracranial hemorrhage, midline shift, or significant mass effect. 2.Age-indeterminate fracture deformities of the nasal bones. 3.Otherwise, no acute facial bone fractures identified. 4.No evidence of acute fracture in the cervical, thoracic, or lumbar spine. 5.Multilevel degenerative disc and joint disease as detailed above. 6.Please refer to concurrent, dedicated body report for findings in the chest, abdomen, and pelvis. > Interpreting Provider: Luis Luther MD on 02/22/2023 4:36 PM Narrative 02/22/2023 4:36 PM CDT PROCEDURE: ??CT HEAD WO CONTRAST, CT FACIAL BONES WO CONTRAST, CT CERVICAL SPINE WO CONTRAST, CT THORACIC SPINE WO CONTRAST, CT LUMBAR SPINE WO CONTRAST, DATE/TIME OF EXAM: ??02/22/2023 3:17 PM, LOCATION ??[facility] INDICATION: Trauma EXAMINATION: 1. Computed tomography (CT) of the head without contrast 2. CT of the maxillofacial bones, orbits, and paranasal sinuses without contrast 3. CT of the cervical spine without contrast 4. CT of the thoracic spine without contrast 5. CT of the lumbar spine without contrast ADDITIONAL CLINICAL INFORMATION: Ordering Provider Reason For Exam: ??Trauma. Technologist Note: ??None. Additional: ??None. TECHNIQUE: CT of the head, cervical spine, and maxillofacial bones, orbits, and paranasal sinuses was performed without contrast according to standard protocol. Reformatted axial, sagittal, and coronal images of the thoracic and lumbar spine were obtained by the technologist from a concurrently performed body CT and sent to the workstation for review. CT dose reduction technique was used, including Automated Exposure Control. COMPARISON: No prior study is available for comparison at the time of this dictation. FINDINGS: Head: No acute intra- or extra-axial fluid collections are identified. There is mild cerebral volume loss with associated ex vacuo ventricular dilatation. The basilar cisterns are patent. No mass effect or midline shift is seen. The soria-white matter differentiation is normal. Periventricular white matter hypoattenuation is indicative of chronic small vessel ischemic disease. There is vascular calcification of the carotid siphons. No acute calvarial fracture is identified. Small scalp hematoma along the left posterior parieto-occipital scalp. Scalp hematoma along the right frontal supraorbital region with possible associated ulceration or small nodule. Focal skin thickening along the right submandibular region. Small laceration along the left walton and submandibular region. Maxillofacial: The orbits appear normal. There is mild paranasal sinus disease. The patient is edentulous. Focal hypodensity in the right mandible likely represent cysts a small bone island. The hard palate, mandible, and temporomandibular joints appear otherwise grossly. There are age indeterminate fracture deformities of the nasal bones. No additional facial bone fractures are identified. The mastoid air cells are grossly clear. No soft tissue abnormality is identified. Cervical spine: Trace anterolisthesis of C4 on C5 and minimal retrolisthesis of C5 on C6. The alignment is otherwise maintained. Vertebral bodies are normal in height without evidence of acute fracture. Other than middle atlantoaxial joint osteoarthritis, the craniocervical junction appears normal. There is mild degenerative disc disease. No central canal stenosis is seen. There are varying degrees of mild facet osteoarthritis. There are varying degrees of mild to advanced uncovertebral joint osteoarthritis, worst at C5-C6, right more than left with the same degree of neural foraminal stenosis at this level. There is paraseptal emphysema and mild scarring in the lung apices. Thoracic spine: The alignment is maintained. Mild bone demineralization. Vertebral bodies are normal in height without evidence of acute fracture. There is mild degenerative disc disease. Schmorl's nodes are present at multiple levels. No central canal stenosis is seen. There are varying degrees of mild facet osteoarthritis. There are varying degrees of neural foraminal stenosis at multiple levels. There is subsegmental atelectasis in the dependent portions of the lung bases. Lumbar spine: There are postoperative findings of anterior discectomy and fusion at L5-S1 with a disc spacer in place. The hardware appears grossly intact. Suspected trace anterolisthesis of L3 on L4 and trace retrolisthesis of L4 on L5 and L5 on S1. Mild levocurvature of the lumbar spine. The alignment is otherwise maintained. 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 Vertebral bodies are normal in height without evidence of acute fracture. There is mild degenerative disc disease. There is diffuse disc bulge at multiple levels. Mild multilevel central canal stenosis is seen, worst at L3-4 where there is up to severe spinal canal stenosis due to diffuse disc bulge, hypertrophy of the ligamentum flavum, and facet hypertrophy. There is mild lateral recess stenosis. Left paracentral disc protrusion at L5-S1 results in moderate spinal canal and moderate left lateral recess stenosis. Additionally, at L4-5, there is mild to moderate spinal canal stenosis and moderate to severe bilateral lateral recess stenosis.. There are varying degrees of mild to advanced facet osteoarthritis. There are varying degrees of neural foraminal stenosis at multiple levels. Gallbladder stones are noted. There are degenerative changes of the SI joints. Partially imaged degenerative changes of the hip joints. There is atherosclerotic calcification of the abdominal aorta and its branch vessels. Procedure Note Luis Luther MD - 02/22/2023 PROCEDURE: CT HEAD WO CONTRAST, CT FACIAL BONES WO CONTRAST, CTCERVICAL SPINE WO CONTRAST, CT THORACIC SPINE WO CONTRAST, CT LUMBAR SPINE WO CONTRAST, DATE/TIME OF EXAM: 02/22/2023 3:17 PM, LOCATION [facility] INDICATION: Trauma EXAMINATION: 1. Computed tomography (CT) of the head without contrast 2. CT of the maxillofacial bones, orbits, and paranasal sinuses without contrast 3. CT of the cervical spine without contrast 4. CT of the thoracic spine without contrast 5. CT of the lumbar spine without contrast ADDITIONAL CLINICAL INFORMATION: Ordering Provider Reason For Exam: Trauma. Technologist Note: None. Additional: None. TECHNIQUE: CT of the head, cervical spine, and maxillofacial bones,orbits, and paranasal sinuses was performed without contrast according tostandard protocol. Reformatted axial, sagittal, and coronal images of thethoracic and lumbar spine were obtained by the technologist from a concurrently performed body CT and sent to the workstation for review. CT dosereduction technique was used, including Automated Exposure Control. COMPARISON: No prior study is available for comparison at the time ofthis dictation. FINDINGS: Head: No acute intra- or extra-axial fluid collections are identified. Thereis mild cerebral volume loss with associated ex vacuo ventriculardilatation. The basilar cisterns are patent. No mass effect or midline shift isseen. The soria-white matter differentiation is normal. Periventricular white matter hypoattenuation is indicative of chronic small vessel ischemic disease. There is vascular calcification of the carotid siphons. Noacute calvarial fracture is identified. Small scalp hematoma along the left posterior parieto-occipital scalp. Scalp hematoma along the rightfrontal supraorbital region with possible associated ulceration or small nodule. Focal skin thickening along the right submandibular region. Small laceration along the left walton and submandibular region. Maxillofacial: The orbits appear normal. There is mild paranasal sinus disease. The patient is edentulous. Focal hypodensity in the right mandible likely represent cysts a small bone island. The hard palate, mandible, and temporomandibular joints appear otherwise grossly. There are age indeterminate fracture deformities of the nasal bones. No additionalfacial bone fractures are identified. The mastoid air cells are grossly clear.No soft tissue abnormality is identified. Cervical spine: Trace anterolisthesis of C4 on C5 and minimal retrolisthesis of C5 onC6. The alignment is otherwise maintained. Vertebral bodies are normal in height without evidence of acute fracture. Other than middleatlantoaxial joint osteoarthritis, the craniocervical junction appears normal. Thereis mild degenerative disc disease. No central canal stenosis is seen. There are varying degrees of mild facet osteoarthritis. There are varyingdegrees of mild to advanced uncovertebral joint osteoarthritis, worst at C5-C6, right more than left with the same degree of neural foraminal stenosisat this level. There is paraseptal emphysema and mild scarring in the lung apices. Thoracic spine: The alignment is maintained. Mild bone demineralization. Vertebralbodies are normal in height without evidence of acute fracture. There is mild degenerative disc disease. Schmorl's nodes are present at multiplelevels. No central canal stenosis is seen. There are varying degrees of mildfacet osteoarthritis. There are varying degrees of neural foraminal stenosisat multiple levels. There is subsegmental atelectasis in the dependent portions of the lung bases. Lumbar spine: There are postoperative findings of anterior discectomy and fusion atL5-S1 with a disc spacer in place. The hardware appears grossly intact. Suspected trace anterolisthesis of L3 on L4 and trace retrolisthesis ofL4 on L5 and L5 on S1. Mild levocurvature of the lumbar spine. Thealignment is otherwise maintained. 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 Vertebral bodies are normal in height without evidenceof acute fracture. There is mild degenerative disc disease. There isdiffuse disc bulge at multiple levels. Mild multilevel central canal stenosis is seen, worst at L3-4 where there is up to severe spinal canal stenosisdue to diffuse disc bulge, hypertrophy of the ligamentum flavum, and facet hypertrophy. There is mild lateral recess stenosis. Left paracentraldisc protrusion at L5-S1 results in moderate spinal canal and moderate left lateral recess stenosis. Additionally, at L4-5, there is mild tomoderate spinal canal stenosis and moderate to severe bilateral lateral recess stenosis.. There are varying degrees of mild to advanced facet osteoarthritis. There are varying degrees of neural foraminal stenosisat multiple levels. Gallbladder stones are noted. There are degenerative changes of the SI joints. Partially imaged degenerative changes of thehip joints. There is atherosclerotic calcification of the abdominal aortaand its branch vessels. IMPRESSION: 1.No acute intracranial hemorrhage, midline shift, or significant mass effect. 2.Age-indeterminate fracture deformities of the nasal bones. 3.Otherwise, no acute facial bone fractures identified. 4.No evidence of acute fracture in the cervical, thoracic, or lumbarspine. 5.Multilevel degenerative disc and joint disease as detailed above. 6.Please refer to concurrent, dedicated body report for findings in the chest, abdomen, and pelvis. > Interpreting Provider: Luis Luther MD on 02/22/2023 4:36 PM Balta Solo MD CT ORDERABLES * CT HEAD WO CONTRAST - Head Trauma, CSF leak, mental status changes (02/22/2023 3:37 PM CDT) Anatomical Region Laterality Modality Head Computed Tomogra phy 02/22/2023 3:28 PM CDT Impressions 02/22/2023 4:36 PM CDT IMPRESSION: 1.No acute intracranial hemorrhage, midline shift, or significant mass effect. 2.Age-indeterminate fracture deformities of the nasal bones. 3.Otherwise, no acute facial bone fractures identified. 4.No evidence of acute fracture in the cervical, thoracic, or lumbar spine. 5.Multilevel degenerative disc and joint disease as detailed above. 6.Please refer to concurrent, dedicated body report for findings in the chest, abdomen, and pelvis. > Interpreting Provider: Luis Luther MD on 02/22/2023 4:36 PM Narrative 02/22/2023 4:36 PM CDT PROCEDURE: ??CT HEAD WO CONTRAST, CT FACIAL BONES WO CONTRAST, CT CERVICAL SPINE WO CONTRAST, CT THORACIC SPINE WO CONTRAST, CT LUMBAR SPINE WO CONTRAST, DATE/TIME OF EXAM: ??02/22/2023 3:17 PM, LOCATION ??[facility] INDICATION: Trauma EXAMINATION: 1. Computed tomography (CT) of the head without contrast 2. CT of the maxillofacial bones, orbits, and paranasal sinuses without contrast 3. CT of the cervical spine without contrast 4. CT of the thoracic spine without contrast 5. CT of the lumbar spine without contrast ADDITIONAL CLINICAL INFORMATION: Ordering Provider Reason For Exam: ??Trauma. Technologist Note: ??None. Additional: ??None. TECHNIQUE: CT of the head, cervical spine, and maxillofacial bones, orbits, and paranasal sinuses was performed without contrast according to standard protocol. Reformatted axial, sagittal, and coronal images of the thoracic and lumbar spine were obtained by the technologist from a concurrently performed body CT and sent to the workstation for review. CT dose reduction technique was used, including Automated Exposure Control. COMPARISON: No prior study is available for comparison at the time of this dictation. FINDINGS: Head: No acute intra- or extra-axial fluid collections are identified. There is mild cerebral volume loss with associated ex vacuo ventricular dilatation. The basilar cisterns are patent. No mass effect or midline shift is seen. The soria-white matter differentiation is normal. Periventricular white matter hypoattenuation is indicative of chronic small vessel ischemic disease. There is vascular calcification of the carotid siphons. No acute calvarial fracture is identified. Small scalp hematoma along the left posterior parieto-occipital scalp. Scalp hematoma along the right frontal supraorbital region with possible associated ulceration or small nodule. Focal skin thickening along the right submandibular region. Small laceration along the left walton and submandibular region. Maxillofacial: The orbits appear normal. There is mild paranasal sinus disease. The patient is edentulous. Focal hypodensity in the right mandible likely represent cysts a small bone island. The hard palate, mandible, and temporomandibular joints appear otherwise grossly. There are age indeterminate fracture deformities of the nasal bones. No additional facial bone fractures are identified. The mastoid air cells are grossly clear. No soft tissue abnormality is identified. Cervical spine: Trace anterolisthesis of C4 on C5 and minimal retrolisthesis of C5 on C6. The alignment is otherwise maintained. Vertebral bodies are normal in height without evidence of acute fracture. Other than middle atlantoaxial joint osteoarthritis, the craniocervical junction appears normal. There is mild degenerative disc disease. No central canal stenosis is seen. There are varying degrees of mild facet osteoarthritis. There are varying degrees of mild to advanced uncovertebral joint osteoarthritis, worst at C5-C6, right more than left with the same degree of neural foraminal stenosis at this level. There is paraseptal emphysema and mild scarring in the lung apices. Thoracic spine: The alignment is maintained. Mild bone demineralization. Vertebral bodies are normal in height without evidence of acute fracture. There is mild degenerative disc disease. Schmorl's nodes are present at multiple levels. No central canal stenosis is seen. There are varying degrees of mild facet osteoarthritis. There are varying degrees of neural foraminal stenosis at multiple levels. There is subsegmental atelectasis in the dependent portions of the lung bases. Lumbar spine: There

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
--- OUTSIDE RECORDS SUMMARY | 2024-10-02 12:01 | XMS_ITS | Encounter Summary ---
Author Organization [facility] Facility Care Team Providers Care Dialysis Technician Name Role Phone Rebel Jin MD Primary Care Provider [phone] Nai Ramirez CREDIT COLLECTOR Primary Care Provider [phone] Rahul Marshall MD Primary Care Provider [phone] Nai Ramirez CREDIT COLLECTOR Unavailable [phone] Rebel Jin MD Primary Care Provider [phone] Nai Ramirez CREDIT COLLECTOR Primary Care Provider [phone] Nai Ramirez CREDIT COLLECTOR Primary Care Provider [phone] Nai Ramirez CREDIT COLLECTOR Primary Care Provider [phone] Vinh Chicas MD Unavailable Encounter Details Date Type Department Care Team (Latest Contact Info) Description 10/10/2016 Orders Only [facility] CLINCONV ProviderHailee MD [address] [place] [address] Social History Tobacco Use Types Packs/Day Years Used Date Smoking Tobacco: Former Sex and Gender Information Value Date Recorded Sex Assigned at Not on file Legal Sex Male 3:57 PM ONCOLOGY COORDINATOR Gender Identity Male 01/08/2020 9:10 AM CDT Sexual Orientation Straight 01/08/2020 9: 10 AM CDT documented as of this encounter Plan of Treatment Not on file documented as of this encounter Procedures Procedure Name Priority Date/Time Associated Diagnosis Comments SCAN - LABS 11/19/2016 12:00 AM CDT CARDIOLOGY REPORT 11/19/2016 12: 00 AM CDT documented in this encounter Results * SCAN - LABS (11/19/2016 12:00 AM CDT) Narrative 11/19/2016 12:00 AM CDT Ordered by an unspecified provider. us Historical Provider MD Final Res ult * CARDIOLOGY REPORT (11/19/2016 12:00 AM CDT) Anatomical Region Laterality Modality Other Narrative 11/19/2016 12:00 AM CDT Ordered by an unspecified provider. Historical Provider CV CARDIAC SERVICES PROCE CRISTÓBAL Final Result documented in this encounter Visit Diagnoses Not on filedocumented in this encounter Additional Health Concerns Infection Onset Date Last Indicated Resolved Time COVID: Suspected 10/16/2022 10/16/2022 10/16/2022 4:55 PM ONCOLOGY COORDINATOR documented as of this encounter Care Teams Dialysis Technician Relationship Specialty Start Date End Date Rebel Jin MD [address] [place] [address] [place] [address] PCP - General 01/20/18 10/14/18 Nai Ramirez NP [address] [place] [address] PCP - General 10/15/18 04/27/19 Rahul Marshall MD [address] [place] [address] PCP - General 04/28/19 05/14/19 Rebel Jin MD [address] [place] [address] PCP - General Internal Medicine 05/15/19 10/06/19 Nai Ramirez, CHRIS [address] [place] [address] [place] [address] PCP - General 10/31/19 04/17/23 Nai Ramirez NP [address] [place] [address] [place] [address] PCP - General 10/07/19 10/30/19 Nai Ramirez, CHRIS [address] [address] PCP - General Internal Medicine 04/18/23 Vinh Chicas MD [address] [address] PCP - Cardiology Cardiovascular Disease 06/03/23 Nai Ramirez, CREDIT COLLECTOR [address] [place] [address] [place] [address] 04/28/19 documented as of this encounter
[2024-10-02 12:25] VITALS: BP 147/90; PULSE 62; RESP 16; TEMP 36.6; O2SAT 100
--- NOTE | 2024-10-02 13:44 | ED.HA ---
HPI - Headache General Chief Complaint: Headache Stated Complaint: headache x10 days Time Seen by Provider: 10/02/24 13:44 Focused HPI: This is a 64 year old male that presents to the ER for headaches. Ongoing for several years. He used to get nerve blocks for this. Reports he gets dizziness, nausea and sometimes will pass out. Also reports neck pain. GENERAL: Well-appearing, well-nourished, and in no acute distress. HEAD: Normocephalic, atraumatic. CHEST: Clear to auscultation. ?No respiratory distress. HEART: Regular rate and rhythm.? NEURO: ?Alert and oriented x3. Patient screened in triage and initial orders placed.? ?Additional care and disposition to be based upon?diagnostic testing and treatment. Related Data Allergies Allergy/AdvReac Type Severity Reaction Status Date / Time No Known Allergies Allergy Unverified 10/09/16 19:42 Course Vital Signs Vital signs: Vital Signs Temperature 97.8 F 10/02/24 12:25 Pulse Rate 62 10/02/24 12:25 Respiratory Rate 16 10/02/24 12:25 Blood Pressure 147/90 H 10/02/24 12:25 Pulse Oximetry 100 10/02/24 12:25 Oxygen Delivery Room Air 10/02/24 12:25 Temperature 97.8 F 10/02/24 12:25 Pulse Rate 62 10/02/24 12:25 Respiratory Rate 16 10/02/24 12:25 Blood Pressure 147/90 H 10/02/24 12:25 Pulse Oximetry 100 10/02/24 12:25 Oxygen Delivery Room Air 10/02/24 12:25 Discharge Plan Discharge Patient Language: Malay Follow-up/Referrals: Davin,Rebel Carvalho MD [Primary Care Provider] -
--- NOTE | 2024-10-02 13:45 | ECG_ITS ---
Test Date: 2024-10-02 13:56:56 Measurements Intervals [place] Rate: 56 P: 64 [place]: 155 QRS: 69 QRSD: 89 T: 71 QT: 418 QTc: 406 Interpretive Statements SINUS BRADYCARDIA WITH OCCASIONAL SUPRAVENTRICULAR PREMATURE COMPLEXES No previous ECG available for comparison Electronically Signed On 10-02-2024 14:49:10 PATIENT CASE COORDINATOR by Monse Arreaga M.D.
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
--- OUTSIDE RECORDS SUMMARY | 2024-10-02 14:48 | XMS_ITS | Clinical Summary ---
Author Organization [place] [id number] [facility] Address [facility] [place] [address] Care Team Providers Care Extra Gang Supervisor Name Role Phone Nai Ramirez NP Unavailable [phone] Nai Ramirez NP Primary Care Provider [phone] Vinh Chicas MD Unavailable Allergies No known [...] release Assessment & Plan (07/20/2019 3:48 PM GROVE WORKER): Marked improvement in range of motion. Marked improvement in pain. However, developed muscle spasms. Anxious to get back to normal activities. Wants to continue physical therapy for strengthening. Assessment & Plan (07/06/2019 8:44 AM GROVE WORKER): Patient has failed nonsteroidal anti-inflammatories and formal [...] restriction. Assessment & Plan (10/14/2019 10:05 AM GROVE WORKER): Begin work hardening strength training. Follow up in 6 weeks. Assessment & Plan (08/31/2019 1:28 PM GROVE WORKER): Formal physical therapy with strengthening for 6 more weeks. Patient will follow up in 6 weeks. Assessment & Plan (07/20/2019 3:48 PM GROVE WORKER): Formal physical therapy with strengthening Assessment & Plan (07/06/2019 8:44 AM GROVE WORKER): Not making progress with formal physical therapy [...] 05/17/2017 Assessment & Plan (07/06/2020 1:32 PM GROVE WORKER): The patient was giving a different style [...] Department Care Team Description 10/01/2024 Nurse Triage [facility] Internal Medicine at [place] [address] [place] [address] Rd [address] [place] [address] Dominga Wolfe, DARIN 10/01/2024 Nurse Triage [facility] Internal Medicine at [address] [place] [address] Nai Ramirez NP 09/23/2024 3:00 PM GROVE WORKER Office Visit [facility] at [address] [address] Deirdre Clark NP Generalized headache (Primary Dx); Dizziness 09/22/2024 Nurse Triage [facility] Internal Medicine at [place] [address] [place] [address] Rd [address] [place] [address] Nai Ramirez NP 09/03/2024 Telephone [facility] Internal Medicine at [address] [place] [address] Nai Ramirez NP Med Refill 08/25/2024 8:30 AM GROVE WORKER Office Visit [facility] Medicine at [address] [place] [address] Nai Ramirez NP Acute recurrent maxillary sinusitis (Primary Dx); BMI 23.0-23.9, adult; Drug-induced erectile dysfunction 07/20/2024 8:26 AM GROVE WORKER - 07/20/2024 11:59 PM GROVE WORKER Hospital Encounter [facility] [address] [place] [address] Rn, Mhb Rad QUEZADA (dyspnea on exertion); Chest pain, unspecified type; Precordial pain Discharge Disposition: Discharge to home or self care 07/17/2024 Telephone [facility] Card[facility] [address] [facility] [address] [place] [address] Tami Corona NP 07/11/2024 7:10 AM GROVE WORKER Lab [facility] [address] [place] [address] QUEZADA (dyspnea on exertion); Abnormal stress test; Bradycardia; Primary hypertension; Mixed hyperlipidemia 07/10/2024 3:30 PM GROVE WORKER Office Visit [facility] Internal Medicine at [place] [address] [place] [address] Rd [address] [place] [address] Nai Ramirez NP Primary insomnia (Primary Dx); BMI 21.0-21.9, adult 07/10/2024 Telephone [facility] Internal Medicine at [place] [address] [place] [address] Rd [address] [place] [address] Nai Ramirez NP Medical Question/Miscellaneous [...] repaired Abnormal stress test 06/10/2023 High cholesterol AR, old 06/17/2023 patient states gary cid was told he had an old AR, he was not aware, not symptomatic Bilateral [...] often do you attend chur ch or episcopalian services? Never 03/18/2023 Do you belong to any clubs o r organizations such as faith groups, unions, fraternal or athletic groups, or [...] place to sleep or slept in a jail (including now)? No 03/18/2023 Personal Safety Answer Date Recorded Have you ever been in or are you currently in a harmful physical or emotional relationship or is someone making you feel afraid or unsafe? Denies 08/08/2023 Sex and Gender Information Value Date Recorded Sex Assigned at Not on file Legal Sex Male 3:57 PM GROVE WORKER Gender Identity Male 01/08/2020 9:10 AM CDT Sexual Orientation Straight 01/08/2020 9: 10 AM CDT Obstetrics History Last Filed Vital Signs Vital Sign Reading Time Taken Comments Blood Pressure 144/82 09/23/2024 3:06 PM GROVE WORKER Pulse 57 09/23/2024 3:06 PM GROVE WORKER Temperature 36.8 ??C (98.2 ??F) 09/23/2024 3:06 PM CS T Respiratory Rate 14 09/23/2024 3:06 PM GROVE WORKER Oxygen Saturation 96% 09/23/2024 3:06 PM GROVE WORKER Inhaled Oxygen Concentration - - Weight 86.2 kg (190 lb) 09/23/2024 3:06 PM GROVE WORKER Height 193 cm (6' 4 ) 09/23/2024 3:06 PM GROVE WORKER Body Mass Index 23.13 09/23/2024 3:06 PM GROVE WORKER Plan of Treatment Health Maintenance Due Date [...] Completed 08/25/2024 Medical Devices Implanted Type Area Novelty Worker Device Identifier Shelf Expiration Date Model / Serial / Lot [id number] Cage Back Pins And Plate Left: Wrist Plate Left: Ankle Procedures Procedure Name Priority Date/Time Associated Diagnosis Comments CTA HEART W CALCIUM SCORING Schedule Routine, Read Routine (OP Routine) 07/20/2024 9:51 AM GROVE WORKER QUEZADA (dyspnea on exertion) Chest pain, unspecified type Precordial pain EGFR Routine 07/11/2024 7:25 AM GROVE WORKER QUEZADA (dyspnea on exertion) Abnormal stress test Bradycardia Primary hypertension Mixed hyperlipidemia DIFFERENTIAL AUTO Routine 07/11/2024 7:2 5 AM GROVE WORKER QUEZADA (dyspnea on exertion) Abnormal stress test Bradycardia Primary hypertension Mixed hyperlipidemia CBC WITH AUTO DIFFERENTIAL Routine 07/11/2024 7:25 AM GROVE WORKER QUEZADA (dyspnea on exertion) Abnormal stress test Bradycardia Primary hypertension Mixed hyperlipidemia COMPREHENSIVE METABOLIC PANEL Routine 07/11/2024 7:25 AM GROVE WORKER QUEZADA (dyspnea on exertion) Abnormal stress test Bradycardia Primary hypertension Mixed hyperlipidemia LIPID PANEL Routine 07/11/2024 7:25 AM GROVE WORKER QUEZADA (dyspnea on exertion) Abnormal stress test Bradycardia Primary hypertension Mixed hyperlipidemia MAGNESIUM Routine 07/11/2024 7:25 AM GROVE WORKER QUEZADA (dyspnea on exertion) Abnormal stress test [...] HEART W CALCIUM SCORING (07/20/2024 9:51 AM GROVE WORKER) Anatomical Region Laterality Modality Chest N/A Computed Tomogra phy, Computed Radiography 07/20/2024 10:1 0 AM GROVE WORKER Narrative 07/20/2024 10:44 AM GROVE WORKER EXAM DESCRIPTION: CTA HEART W CALCIUM SCORING [...] of blood cholesterol: a report of the [place] College of Cardiology/[place] Heart Association Task Force on Clinical Practice Guidelines. J Am Scarlett Cardiol, 73 (24) (2019), pp. s644-e568. [id number] THIS IS AN ELECTRONICALLY VERIFIED FINAL REPORT 07/20/2024 10:44 AM - Electronically signed by ??Eliseo AVELAR D: ??07/20/2024 10:44 AM T: Report ID: [id number] Reading Location: ??[id number] Procedure Note Eliseo Jurado MD - 07/20/2024 [...] of blood cholesterol: a report of the [place] College of Cardiology/[place] Heart Association Task Force on Clinical Practice Guidelines. J Am Scarlett Cardiol, 73 (24) (2019), pp. b644-p529. [id number] THIS IS AN ELECTRONICALLY VERIFIED FINAL REPORT 07/20/2024 10:44 AM - Electronically signed by Eliseo AVELAR T: Report ID: [id number] Reading Location: [place] [address] us Tami Corona AUTOMATION QA LEAD IMG CT PROCEDURES Final Result * eGFR (07/11/2024 7:25 AM GROVE WORKER) eGFR 90 >=60 mL/min/1. 73 m2 Comment: [...] last reviewed 2021. Blood 07/11/2024 7:25 AM GROVE WORKER 07/11/2024 8:03 AM GROVE WORKER us Tami Corona AUTOMATION QA LEAD LAB BLOOD ORDERABLES Final Res ult [facility] [address] [facility] Department [place] [address] * Differential, auto (07/11/2024 7:25 AM GROVE WORKER) Pathologist [facility] Neutrophil abs 5.1 1.5 - 6.5 K/cumm Imm gran abs 0.0 0.0 - 0.1 K/cumm [facility] Lymphocyte abs 2.0 0.8 - 3.3 K/cumm [facility] Monocyte abs 0.6 0.2 - 0.8 K/cumm [facility] Eosinophil abs 0.2 0.0 - 0.5 K/cumm [facility] Basophil abs 0.1 0.0 - 0.1 K/cumm [facility] Neutrophil pct 64.0 % [facility] Comment: Interpretive Data Percent cell count reference ranges are not reported, since discordance with absolute values may lead to misinterpretation of CBC data. Current Interpretive Data was last revised on 2017. Imm gran pct 0.4 % [facility] Comment: Interpretive Data Percent cell count reference ranges are not reported, since discordance with absolute values may lead to misinterpretation of CBC data. Current Interpretive Data was last revised on 2017. Lymphocyte pct 24.7 % [facility] Comment: Interpretive Data Percent cell count reference ranges are not reported, since discordance with absolute values may lead to misinterpretation of CBC data. Current Interpretive Data was last revised on 2017. Monocyte pct 7.4 % [facility] Comment: Interpretive Data Percent cell count reference ranges are not reported, since discordance with absolute values may lead to misinterpretation of CBC data. Current Interpretive Data was last revised on 2017. Eosinophil pct 2.9 % [facility] Comment: Interpretive Data Percent cell count reference ranges are not reported, since discordance with absolute values may lead to misinterpretation of CBC data. Current Interpretive Data was last revised on 2017. Basophil pct 0.6 % [facility] Comment: Interpretive Data Percent cell count reference ranges are not reported, since discordance with absolute values may lead to misinterpretation of CBC data. Current Interpretive Data was last revised on 2017. Blood 07/11/2024 7:25 AM GROVE WORKER 07/11/2024 8:03 AM GROVE WORKER us Tami Corona AUTOMATION QA LEAD LAB BLOOD ORDERABLES Final Res ult [facility] [address] [facility] Department [place] [address] * (ABNORMAL) CBC with auto differential (07/11/2024 7:25 AM GROVE WORKER) WBC 7.9 3.8 - 9.9 K/cumm Hgb 14.0 13.0 - 17.5 g/dL [facility] Hct 41.2 38.9 - 50.3 % [facility] Plt 222 150 - 400 K/cumm [facility] MPV 9.3 9.1 - 12.3 fL [facility] RBC 4.30 4.30 - 5.80 M/cumm [facility] MCV 95.8 81.3 - 96.4 fL [facility] MCH 32.6 27.1 - 33.3 pg [facility] MCHC 34.0 32.3 - 35.7 g/dL [facility] RDW CV 13.8 11.1 - 14.9 % [facility] RDW SD 48.2(H) 35.7 - 48.1 fL [facility] NRBC abs 0.00 0.00 - 0.01 K/cumm [facility] Blood 07/11/2024 7:25 AM GROVE WORKER 07/11/2024 8:03 AM GROVE WORKER Tami Corona AUTOMATION QA LEAD LAB BLOOD ORDERABLES Final Res ult Performing Organization Address [facility] de Phone Number [address] [employer] [address] * Magnesium (07/11/2024 7:25 AM GROVE WORKER) Pathologist [facility] Magnesium 1.9 1.4 - 2.5 mg/dL Blood 07/11/2024 7:25 AM GROVE WORKER 07/11/2024 8:03 AM GROVE WORKER Tami Corona AUTOMATION QA LEAD LAB BLOOD ORDERABLES Final Res ult Performing Organization Address [facility] Co de Phone Number [address] [employer] [address] * Lipid panel (07/11/2024 7:25 AM GROVE WORKER) Cholesterol 117 30 - 199 mg/dL Comment: [...] on 2018. Triglycerides 65 <=149 mg/dL [facility] Comment: Interpretive Data Ages [...] last revised on 2018. Chol/HDL ratio 2 [facility] Blood 07/11/2024 7:25 AM GROVE WORKER 07/11/2024 8:03 AM GROVE WORKER us Tami Corona AUTOMATION QA LEAD LAB BLOOD ORDERABLES Final Res ult [facility] [address] [facility] Department [place] [address] * (ABNORMAL) Comprehensive metabolic panel (07/11/2024 7:25 AM GROVE WORKER) Sodium 142 135 - 145 mmol/L Potassium, pl 4.4 3.3 - 4.9 mmol/L [facility] Chloride 108 97 - 110 mmol/L [facility] CO2 23 22 - 32 mmol/L [facility] Anion gap 11 2 - 15 mmol/L [facility] BUN 22 6 - 25 mg/dL [facility] Creatinine 0.94 0.80 - 1.30 mg/dL [facility] Glucose 111 70 - 199 mg/dL [facility] Comment: Interpretive Data Fasting glucose >/= 126 [...] 2022. Calcium 9.4 8.5 - 10.3 mg/dL [facility] Bilirubin, total 0.2 0.1 - 1.2 mg/dL [facility] Protein, pl 6.1(L) 6.5 - 8.5 g/dL [facility] Albumin 3.7 3.5 - 5.0 g/dL [facility] Alk phos 80 40 - 130 Units/L [facility] ALT 14 7 - 55 Units/L [facility] AST 21 10 - 50 Units/L [facility] Blood 07/11/2024 7:25 AM GROVE WORKER 07/11/2024 8:03 AM GROVE WORKER us Tami Corona AUTOMATION QA LEAD LAB BLOOD ORDERABLES Final Res ult Performing Organization Address [facility] Co de Phone Number [facility] [address] [facility] [place] [address] * PSA screen (04/20/2024 3:44 PM CDT) [...] data last revised 22. Testing performed by: [facility], [address] [place] [address]., [address] Blood 04/20/2024 3:44 PM CDT 04/20/2024 4:36 PM CDT us Nai Ramirez AUTOMATION QA LEAD LAB BLOOD ORDERABLES Final Re sult Performing Organization Address [facility] de Phone Number [facility] [address] [facility] [address] [place], [place] [id number] * CT Abdomen Pelvis WO Contrast (03/17/2023 [...] PM T: ??03/17/2023 11:09 PM Report ID: [id number] Reading Location: ??[id number] Procedure Note Joanne Flor MD - 03/17/2023 [...] by Joanne Flor M.D. SN: Report ID: [id number] Reading Location: [place] [address] Dale Kulkarni DO IMG CT PROCEDURES Final Result * Hepatitis C antibody (12/22/2019 12:28 PM CDT) Pathologist [facility] Hep C Ab NONREACT NONREACTIVE [facility] Comment: [employer] using DON (chemiluminescent immunoassay) technology. NONREACTIVE: Antibodies [...] MICROBIOLOGY - GENERAL OR DERABLES Final Result [id number] [place] [address] * COLONOSCOPY (01/14/2018) Colonoscopy Abnormal Comment:Dr. Cordova Historical Provider HEALTH MAINTENANCE Final Result from Last 3 Months or Most Recently Relevant to Health Maintenance Insurance MEDICARE MEDICARE SOLUTIONS [facility] MEDICARE SOLUTIONS [facility] [address] [place] [address] [employer] [address] [place] [address] [facility] [id number] (Work) [address] [place] [id number] Advance Directives For more information, please contact: [phone] * Full Code (Latest Code Status on File) Date Activated Date Inactivated Comments 08/08/2023 3:15 PM 08/08/2023 8:39 PM * Full Code Date Activated Date Inactivated Comments 07/01/2023 11:54 AM 07/02/2023 6:55 PM * Full Code Date Activated Date Inactivated Comments 03/19/2023 10:34 AM 03/21/2023 7:04 PM Care Teams Extra Gang Supervisor Relationship Specialty Start Date End Date Nai Ramirez, CHRIS [address] [place] [address] PCP - General Internal Medicine 04/18/23 Vinh Chicas MD [address] [place] [address] PCP - Cardiology Cardiovascular Disease 06/03/23 Nai Ramirez NP 04/28/19
--- OUTSIDE RECORDS SUMMARY | 2024-10-02 14:48 | XMS_ITS | Encounter Summary ---
Author Organization [facility] Facility Care Team Providers Care Mechanical Designer Name Role Phone Rebel Jin MD Primary Care Provider [phone] Nai Ramirez FINGERNAIL SCULPTOR Primary Care Provider [phone] Rahul Marshall MD Primary Care Provider [phone] Nai Ramirez FINGERNAIL SCULPTOR Unavailable [phone] Rebel Jin MD Primary Care Provider [phone] Nai Ramirez FINGERNAIL SCULPTOR Primary Care Provider [phone] Nai Ramirez FINGERNAIL SCULPTOR Primary Care Provider [phone] Nai Ramirez FINGERNAIL SCULPTOR Primary Care Provider [phone] Vinh Chicas MD Unavailable Encounter Details Date Type Department Care Team (Latest Contact Info) Description 05/27/2018 Orders Only [facility] CLINCONV ProviderHailee MD [address] [place] [address] Social History Tobacco Use Types Packs/Day Years Used Date Smoking Tobacco: Former Sex and Gender Information Value Date Recorded Sex Assigned at Not on file Legal Sex Male 3:57 PM FORMS EXAMINER Gender Identity Male 01/08/2020 9:10 AM CDT [...] COVID: Suspected 10/16/2022 10/16/2022 10/16/2022 4:55 PM FORMS EXAMINER documented as of this encounter Care Teams Mechanical Designer Relationship Specialty Start Date End Date Rebel Jin MD [address] [facility] [place] [address] PCP - General 01/20/18 10/14/18 Nai Ramirez, FINGERNAIL SCULPTOR [address] [place] [address] [place] [address] PCP - General 10/15/18 04/27/19 Rahul Marshall MD [facility] [place] [address] PCP - General 04/28/19 05/14/19 Rebel Jin MD [address] [place] [address] [place] [address] PCP - General Internal Medicine 05/15/19 10/06/19 Nai Ramirez NP [address] [place] [address] [place] [address] PCP - General 10/31/19 04/17/23 Nai Ramirez NP [address] [facility] [address] [place] [address] PCP - General 10/07/19 10/30/19 Nai Ramirez, FINGERNAIL SCULPTOR [address] [place] [address] PCP - General Internal Medicine 04/18/23 Vinh Chicas MD [address] [place] [address] PCP - Cardiology Cardiovascular Disease 06/03/23 Nai Ramirez, FINGERNAIL SCULPTOR [address] [facility] [place] [address] 04/28/19 documented as of this encounter
--- OUTSIDE RECORDS SUMMARY | 2024-10-02 14:48 | XMS_ITS | Encounter Summary ---
Author Organization [facility] Facility Care Team Providers Care Private Pilot Name Role Phone Rebel Jin MD Primary Care Provider [phone] Nai Ramirez BOILER INSTALLER Primary Care Provider [phone] Rahul Marshall MD Primary Care Provider [phone] Nai Ramirez BOILER INSTALLER Unavailable [phone] Rebel Jin MD Primary Care Provider [phone] Nai Ramirez BOILER INSTALLER Primary Care Provider [phone] Nai Ramirez BOILER INSTALLER Primary Care Provider [phone] Nai Ramirez BOILER INSTALLER Primary Care Provider [phone] Vinh Chicas MD Unavailable Encounter Details Date Type Department Care Team (Latest Contact Info) Description 10/10/2016 Orders Only [facility] CLINCONV ProviderHailee MD [address] [place] [address] Social History Tobacco Use Types Packs/Day Years Used Date Smoking Tobacco: Former Sex and Gender Information Value Date Recorded Sex Assigned at Not on file Legal Sex Male 3:57 PM ENVIRONMENTAL EDUCATION SPECIALIST Gender Identity Male 01/08/2020 9:10 AM CDT [...] COVID: Suspected 10/16/2022 10/16/2022 10/16/2022 4:55 PM ENVIRONMENTAL EDUCATION SPECIALIST documented as of this encounter Care Teams Private Pilot Relationship Specialty Start Date End Date Rebel Jin MD [address] [facility] [address] [place] [address] PCP - General 01/20/18 10/14/18 Nai Ramirez NP [address] [facility] [place] [address] PCP - General 10/15/18 04/27/19 Rahul Marshall MD [address] [facility] [place] [address] PCP - General 04/28/19 05/14/19 Rebel Jin MD [address] [facility] [place] [address] PCP - General Internal Medicine 05/15/19 10/06/19 Nai Ramirez, CHRIS [address] [facility] [address] [place] [address] PCP - General 10/31/19 04/17/23 Nai Ramirez NP [address] [facility] [address] [place] [address] PCP - General 10/07/19 10/30/19 Nai Ramirez, CHRIS [address] [address] PCP - General Internal Medicine 04/18/23 Vinh Chicas MD [address] [address] PCP - Cardiology Cardiovascular Disease 06/03/23 Nai Ramirez, BOILER INSTALLER [address] [facility] [address] [place] [address] 04/28/19 documented as of this encounter
--- OUTSIDE RECORDS SUMMARY | 2024-10-02 14:48 | XMS_ITS | Referral Summary ---
Author Organization [facility] Address [address] [facility] [facility] [address] [place] [address] Care Team Providers Care Field Crop Ii Farmworker Name Role Phone Marlene Fox APRN-TOY CONSULTANT Primary Care Provider Source Comments [facility],non-owned Affiliates and Associated Physician Practices is amultiple site organization consisting of ambulatory clinics and hospital sitesin [place], [place], [place] and [place]. This disclosure is being madepursuant to the Care Everywhere program and may not contain all information available regarding this patient. Last updated 18.[facility] Plan Me Up Allergies No known active allergies Medications * [...] on file Medical Devices Implanted Type Area Viscose Department Worker Device Identifier Shelf Expiration Date Model / Serial / Lot Plate 5 Hl Fib Lt Dist Lat 99mm Contr Implanted:Qty: 1 on 03/04/2023 by Lyndsey Craig MD at [facility] Left: Ankle [employer]ynthes [employer] [id number] / / Screw 3.5mm 6mm 22mm 2.5mm Ft Slf-Tap Implanted:Qty: 1 on 03/04/2023 by Lyndsey Craig MD at [facility] Left: Ankle [employer]ynthes [employer] 204.822 / / Screw 2.7mm 2.1mm 20mm T8 Slf-Tap Lck Implanted:Qty: 2 on 03/04/2023 by Lyndsey Craig MD at [facility] Left: Ankle [employer]s [employer] [id number] / / Screw 2.7mm 2.1mm 24mm T8 Slf-Tap Lck Implanted:Qty: 2 on 03/04/2023 by Lyndsey Craig MD at [facility] Left: Ankle [employer]s [employer] 202.224 / / Screw 3.5mm 6mm 18mm [place] Slf-Tap Sm Implanted:Qty: 1 on 03/04/2023 by Lyndsey Craig MD at [facility] Left: Ankle [employer]ynthes [employer] 204.818 / / Explanted Type Area Viscose Department Worker Device Identifier Shelf Expiration Date Model / Serial / Lot Screw 2.7mm 5mm 26mm T8 Slf-Tap Strdr Explanted:Qty: 1 on 03/04/2023 by Lyndsey Craig MD at [facility] Left: Ankle [employer] 202.886 / / Screw 2.7mm 2.1mm 24mm T8 Slf-Tap Lck Explanted:Qty: 1 on 03/04/2023 by Lyndsey Craig MD at [facility] Left: Ankle [employer]s [employer]sa 202.224 / / Care Teams Field Crop Ii Farmworker Relationship Specialty Start Date End Date Marlene Fox, [employer] ARCHITECT-TOY CONSULTANT [facility] [address] PCP - General 06/18/16
--- OUTSIDE RECORDS SUMMARY | 2024-10-02 14:48 | XMS_ITS | Referral Summary ---
Author Organization [place] [id number] [facility] Address [facility] [place] [address] Care Team Providers Care Clinical Training Specialist Name Role Phone Nai Ramirez MATERIAL CONTROL ANALYST Unavailable [phone] Nai Ramirez MATERIAL CONTROL ANALYST Primary Care Provider [phone] Vinh Chicas MD Unavailable Encounters Date Type Department Care Team Description 10/01/2024 Nurse Triage [facility] Medical [facility] Internal Medicine at [address] [place] [phone] Dominga Wolfe RN 10/01/2024 Nurse Triage [facility] Internal Medicine at [address] [place] [phone] Nai Ramirez NP 09/23/2024 3:00 PM VICTIM WITNESS ADMINISTRATOR Office Visit [facility] Care at [address] [phone] Deirdre Clark NP Generalized headache (Primary Dx); Dizziness 09/22/2024 Nurse Triage [facility] Internal Medicine at [place] [address] [place] [phone] Nai Ramirez NP 09/03/2024 Telephone [facility] Internal Medicine at [address] [place] [address] Nai Ramirez NP Med Refill 08/25/2024 8:30 AM VICTIM WITNESS ADMINISTRATOR Office Visit [facility] Internal Medicine at [address] [place] [address] Nai Ramirez NP Acute recurrent maxillary sinusitis (Primary Dx); BMI 23.0-23.9, adult; Drug-induced erectile dysfunction 07/20/2024 8:26 AM VICTIM WITNESS ADMINISTRATOR - 07/20/2024 11:59 PM VICTIM WITNESS ADMINISTRATOR Hospital Encounter [facility] CT [address] [place] [address] Rn, Mhb Rad QUEZADA (dyspnea on exertion); Chest pain, unspecified type; Precordial pain Discharge Disposition: Discharge to home or self care 07/17/2024 Telephone [facility] [address] [phone] Tami Corona NP 07/11/2024 7:10 AM VICTIM WITNESS ADMINISTRATOR Lab [facility] Lab [address] [place] [address] QUEZADA (dyspnea on exertion); Abnormal stress test; Bradycardia; Primary hypertension; Mixed hyperlipidemia 07/10/2024 Telephone [facility] Medical [facility] Internal Medicine at [address] [place] [phone] Nai Ramirez NP Medical Question/Miscellaneous 07/10/2024 3:30 PM VICTIM WITNESS ADMINISTRATOR Office Visit [facility] Medical [facility] Internal Medicine at [address] [place] [phone] Nai Ramirez NP Primary insomnia (Primary Dx); [...] release Assessment & Plan (07/20/2019 3:48 PM VICTIM WITNESS ADMINISTRATOR): Marked improvement in range of motion. Marked improvement in pain. However, developed muscle spasms. Anxious to get back to normal activities. Wants to continue physical therapy for strengthening. Assessment & Plan (07/06/2019 8:44 AM VICTIM WITNESS ADMINISTRATOR): Patient has failed nonsteroidal anti-inflammatories and formal [...] restriction. Assessment & Plan (10/14/2019 10:05 AM VICTIM WITNESS ADMINISTRATOR): Begin work hardening strength training. Follow up in 6 weeks. Assessment & Plan (08/31/2019 1:28 PM VICTIM WITNESS ADMINISTRATOR): Formal physical therapy with strengthening for 6 more weeks. Patient will follow up in 6 weeks. Assessment & Plan (07/20/2019 3:48 PM VICTIM WITNESS ADMINISTRATOR): Formal physical therapy with strengthening Assessment & Plan (07/06/2019 8:44 AM VICTIM WITNESS ADMINISTRATOR): Not making progress with formal physical therapy [...] 05/17/2017 Assessment & Plan (07/06/2020 1:32 PM VICTIM WITNESS ADMINISTRATOR): The patient was giving a different style [...] How often do you attend chur or anglican services? Never 03/18/2023 Do you belong to any clubs o r organizations such as denominational groups, unions, fraternal or athletic groups, or [...] place to sleep or slept in a care home (including now)? No 03/18/2023 Personal Safety Answer Date Recorded Have you ever been in or are you currently in a harmful physical or emotional relationship or is someone making you feel afraid or unsafe? Denies 08/08/2023 Sex and Gender Information Value Date Recorded Sex Assigned at Not on file Legal Sex Male 3:57 PM VICTIM WITNESS ADMINISTRATOR Gender Identity Male 01/08/2020 9:10 AM CDT Sexual Orientation Straight 01/08/2020 9: 10 AM CDT Last Filed Vital Signs Vital Sign Reading Time Taken Comments Blood Pressure 144/82 09/23/2024 3:06 PM VICTIM WITNESS ADMINISTRATOR Pulse 57 09/23/2024 3:06 PM VICTIM WITNESS ADMINISTRATOR Temperature 36.8 ??C (98.2 ??F) 09/23/2024 3:06 PM CS T Respiratory Rate 14 09/23/2024 3:06 PM VICTIM WITNESS ADMINISTRATOR Oxygen Saturation 96% 09/23/2024 3:06 PM VICTIM WITNESS ADMINISTRATOR Inhaled Oxygen Concentration - - Weight 86.2 kg (190 lb) 09/23/2024 3:06 PM VICTIM WITNESS ADMINISTRATOR Height 193 cm (6' 4 ) 09/23/2024 3:06 PM VICTIM WITNESS ADMINISTRATOR Body Mass Index 23.13 09/23/2024 3:06 PM VICTIM WITNESS ADMINISTRATOR Plan of Treatment Not on file Medical Devices Implanted Type Area Linen Room Supervisor Device Identifier Shelf Expiration Date Model / Serial / Lot [id number] Cage Back Pins And Plate Left: Wrist Plate Left: Ankle Procedures Procedure Name Priority Date/Time Associated Diagnosis Comments CTA HEART W CALCIUM SCORING Schedule Routine, Read Routine (OP Routine) 07/20/2024 9:51 AM VICTIM WITNESS ADMINISTRATOR QUEZADA (dyspnea on exertion) Chest pain, unspecified type Precordial pain EGFR Routine 07/11/2024 7:25 AM VICTIM WITNESS ADMINISTRATOR QUEZADA (dyspnea on exertion) Abnormal stress test Bradycardia Primary hypertension Mixed hyperlipidemia DIFFERENTIAL AUTO Routine 07/11/2024 7:2 5 AM VICTIM WITNESS ADMINISTRATOR QUEZADA (dyspnea on exertion) Abnormal stress test Bradycardia Primary hypertension Mixed hyperlipidemia CBC WITH AUTO DIFFERENTIAL Routine 07/11/2024 7:25 AM VICTIM WITNESS ADMINISTRATOR QUEZADA (dyspnea on exertion) Abnormal stress test Bradycardia Primary hypertension Mixed hyperlipidemia COMPREHENSIVE METABOLIC PANEL Routine 07/11/2024 7:25 AM VICTIM WITNESS ADMINISTRATOR QUEZADA (dyspnea on exertion) Abnormal stress test Bradycardia Primary hypertension Mixed hyperlipidemia LIPID PANEL Routine 07/11/2024 7:25 AM VICTIM WITNESS ADMINISTRATOR QUEZADA (dyspnea on exertion) Abnormal stress test Bradycardia Primary hypertension Mixed hyperlipidemia MAGNESIUM Routine 07/11/2024 7:25 AM VICTIM WITNESS ADMINISTRATOR QUEZADA (dyspnea on exertion) Abnormal stress test [...] HEART W CALCIUM SCORING (07/20/2024 9:51 AM VICTIM WITNESS ADMINISTRATOR) Anatomical Region Laterality Modality Chest N/A Computed Tomogra phy, Computed Radiography 07/20/2024 10:1 0 AM VICTIM WITNESS ADMINISTRATOR Narrative 07/20/2024 10:44 AM VICTIM WITNESS ADMINISTRATOR EXAM DESCRIPTION: CTA HEART W CALCIUM SCORING [...] of blood cholesterol: a report of the [place] [employer]/[place] [employer] Association Task Force on Clinical Practice Guidelines. J Am Scarlett Cardiol, 73 (24) (2019), pp. j709-b209. [id number] THIS IS AN ELECTRONICALLY VERIFIED FINAL REPORT 07/20/2024 10:44 AM - Electronically signed by ??Eliseo AVELAR D: ??07/20/2024 10:44 AM T: Report ID: [id number] Reading Location: ??[id number] Procedure Note Eliseo Jurado MD - 07/20/2024 [...] of blood cholesterol: a report of the [place] [employer]/[place] Heart Association Task Force on Clinical Practice Guidelines. J Am Scarlett Cardiol, 73 (24) (2019), pp. a751-z058. [id number] THIS IS AN ELECTRONICALLY VERIFIED FINAL REPORT 07/20/2024 10:44 AM - Electronically signed by Eliseo AVELAR T: Report ID: [id number] Reading Location: [place] [address] Tami Corona NP IMG CT PROCEDURES Final Result * eGFR (07/11/2024 7:25 AM VICTIM WITNESS ADMINISTRATOR) eGFR 90 >=60 mL/min/1. 73 m2 Comment: [...] last reviewed 2021. Blood 07/11/2024 7:25 AM VICTIM WITNESS ADMINISTRATOR 07/11/2024 8:03 AM VICTIM WITNESS ADMINISTRATOR us Taim Corona MATERIAL CONTROL ANALYST LAB BLOOD ORDERABLES Final Res ult [place] [id number] [facility] [place] [address] * Differential, auto (07/11/2024 7:25 AM VICTIM WITNESS ADMINISTRATOR) Pathologist [facility] Neutrophil abs 5.1 1.5 - 6.5 K/cumm Imm gran abs 0.0 0.0 - 0.1 K/cumm [facility] Lymphocyte abs 2.0 0.8 - 3.3 K/cumm [facility] Monocyte abs 0.6 0.2 - 0.8 K/cumm [facility] Eosinophil abs 0.2 0.0 - 0.5 K/cumm [facility] Basophil abs 0.1 0.0 - 0.1 K/cumm [facility] Neutrophil pct 64.0 % [facility] Comment: Interpretive Data Percent cell count reference ranges are not reported, since discordance with absolute values may lead to misinterpretation of CBC data. Current Interpretive Data was last revised on 2017. Imm gran pct 0.4 % [facility] Comment: Interpretive Data Percent cell count reference ranges are not reported, since discordance with absolute values may lead to misinterpretation of CBC data. Current Interpretive Data was last revised on 2017. Lymphocyte pct 24.7 % [facility] Comment: Interpretive Data Percent cell count reference ranges are not reported, since discordance with absolute values may lead to misinterpretation of CBC data. Current Interpretive Data was last revised on 2017. Monocyte pct 7.4 % [facility] Comment: Interpretive Data Percent cell count reference ranges are not reported, since discordance with absolute values may lead to misinterpretation of CBC data. Current Interpretive Data was last revised on 2017. Eosinophil pct 2.9 % [facility] Comment: Interpretive Data Percent cell count reference ranges are not reported, since discordance with absolute values may lead to misinterpretation of CBC data. Current Interpretive Data was last revised on 2017. Basophil pct 0.6 % [facility] Comment: Interpretive Data Percent cell count reference ranges are not reported, since discordance with absolute values may lead to misinterpretation of CBC data. Current Interpretive Data was last revised on 2017. Blood 07/11/2024 7:25 AM VICTIM WITNESS ADMINISTRATOR 07/11/2024 8:03 AM VICTIM WITNESS ADMINISTRATOR us Tami Corona MATERIAL CONTROL ANALYST LAB BLOOD ORDERABLES Final Res ult [facility] [address] [facility] Department [place] [address] * (ABNORMAL) CBC with auto differential (07/11/2024 7:25 AM VICTIM WITNESS ADMINISTRATOR) WBC 7.9 3.8 - 9.9 K/cumm Hgb 14.0 13.0 - 17.5 g/dL [facility] Hct 41.2 38.9 - 50.3 % [facility] Plt 222 150 - 400 K/cumm [facility] MPV 9.3 9.1 - 12.3 fL [facility] RBC 4.30 4.30 - 5.80 M/cumm [facility] MCV 95.8 81.3 - 96.4 fL [facility] MCH 32.6 27.1 - 33.3 pg [facility] MCHC 34.0 32.3 - 35.7 g/dL [facility] RDW CV 13.8 11.1 - 14.9 % [facility] RDW SD 48.2(H) 35.7 - 48.1 fL [facility] NRBC abs 0.00 0.00 - 0.01 K/cumm [facility] Blood 07/11/2024 7:25 AM VICTIM WITNESS ADMINISTRATOR 07/11/2024 8:03 AM VICTIM WITNESS ADMINISTRATOR Tami Corona MATERIAL CONTROL ANALYST LAB BLOOD ORDERABLES Final Res ult Performing Organization Address [facility] Co de Phone Number [address] [address] * Magnesium (07/11/2024 7:25 AM VICTIM WITNESS ADMINISTRATOR) Magnesium 1.9 1.4 - 2.5 mg/dL Blood 07/11/2024 7:25 AM VICTIM WITNESS ADMINISTRATOR 07/11/2024 8:03 AM VICTIM WITNESS ADMINISTRATOR Tami Corona MATERIAL CONTROL ANALYST LAB BLOOD ORDERABLES Final Res ult Performing Organization Address [facility] de Phone Number [address] [address] * Lipid panel (07/11/2024 7:25 AM VICTIM WITNESS ADMINISTRATOR) Cholesterol 117 30 - 199 mg/dL Comment: [...] 2 [facility]CK[facility] Blood 07/11/2024 7:25 AM VICTIM WITNESS ADMINISTRATOR 07/11/2024 8:03 AM VICTIM WITNESS ADMINISTRATOR us Tami Corona MATERIAL CONTROL ANALYST LAB BLOOD ORDERABLES Final Res ult [facility]CK[facility] [address] [facility] Department [place] [address] * (ABNORMAL) Comprehensive metabolic panel (07/11/2024 7:25 AM VICTIM WITNESS ADMINISTRATOR) Sodium 142 135 - 145 mmol/L Potassium, pl 4.4 3.3 - 4.9 mmol/L [facility] Chloride 108 97 - 110 mmol/L [facility] CO2 23 22 - 32 mmol/L [facility] Anion gap 11 2 - 15 mmol/L [facility] BUN 22 6 - 25 mg/dL [facility] Creatinine 0.94 0.80 - 1.30 mg/dL [facility] Glucose 111 70 - 199 mg/dL [facility] Comment: Interpretive Data Fasting glucose [...] 2022. Calcium 9.4 8.5 - 10.3 mg/dL [facility] Bilirubin, total 0.2 0.1 - 1.2 mg/dL [facility] Protein, pl 6.1(L) 6.5 - 8.5 g/dL [facility] Albumin 3.7 3.5 - 5.0 g/dL [facility] Alk phos 80 40 - 130 Units/L [facility] ALT 14 7 - 55 Units/L [facility] AST 21 10 - 50 Units/L [facility] Blood 07/11/2024 7:25 AM VICTIM WITNESS ADMINISTRATOR 07/11/2024 8:03 AM VICTIM WITNESS ADMINISTRATOR us Tami Corona MATERIAL CONTROL ANALYST LAB BLOOD ORDERABLES Final Res ult [facility] [address] [facility] [place] [address] * PSA screen (04/20/2024 3:44 [...] data last revised 22. Testing performed by: [facility], [address] [place] [address]., [id number] Blood 04/20/2024 3:44 PM CDT 04/20/2024 4:36 PM CDT us Nai Ramirez MATERIAL CONTROL ANALYST LAB BLOOD ORDERABLES Final Re sult TREVIN [address] [facility] Department [place] [address] * CT Abdomen Pelvis WO [...] PM T: ??03/17/2023 11:09 PM Report ID: [id number] Reading Location: ??[id number] Procedure Note Joanne Flor MD - 03/17/2023 [...] by Joanne Flor M.D. SN: Report ID: [id number] Reading Location: [place] [address] Dale Kulkarni DO [facility] CT PROCEDURES Final Result * Hepatitis C antibody (12/22/2019 12:28 PM CDT) Hep C Ab NONREACT NONREACTIVE [facility] Comment: Siemens PadSquadaurX using DON (chemiluminescent immunoassay) technology. NONREACTIVE: Antibodies [...] MICROBIOLOGY - GENERAL OR DERABLES Final Result [address] [address], [facility] [phone] * COLONOSCOPY (01/14/2018) [facility] Colonoscopy Abnormal Comment:Dr. Cordova Historical Provider HEALTH MAINTENANCE Final Result from Last 3 Months or Most Recently Relevant to Health Maintenance Insurance MEDICARE [facility] Address: [facility] [address] [place] [address] MEDICARE SOLUTIONS [employer] MRA Advance Directives For more information, please contact: [phone] * Full Code (Latest Code Status on File) Date Activated Date Inactivated Comments 08/08/2023 3:15 PM 08/08/2023 8:39 PM * Full Code Date Activated Date Inactivated Comments 07/01/2023 11:54 AM 07/02/2023 6:55 PM * Full Code Date Activated Date Inactivated Comments 03/19/2023 10:34 AM 03/21/2023 7:04 PM Care Teams Clinical Training Specialist Relationship Specialty Start Date End Date Nai Ramirez NP [address] [place] [address] PCP - General Internal Medicine 04/18/23 Vinh Chicas MD [address] [place] [address] PCP - Cardiology Cardiovascular Disease 06/03/23 Nai Ramirez NP 04/28/19
--- OUTSIDE RECORDS SUMMARY | 2024-10-02 14:48 | XMS_ITS | Encounter Summary ---
Author Organization [facility] Care Team Providers Care Manager Meeting Name Role Phone Rebel Jin MD Primary Care Provider [phone] Nai Ramirez FULFILLMENT MAIL CLERK Primary Care Provider [phone] Rahul Marshall MD Primary Care Provider [phone] Nai Ramirez FULFILLMENT MAIL CLERK Unavailable [phone] Rebel Jin MD Primary Care Provider [phone] Nai Ramirez FULFILLMENT MAIL CLERK Primary Care Provider [phone] Nai Ramirez FULFILLMENT MAIL CLERK Primary Care Provider [phone] Nai Ramirez FULFILLMENT MAIL CLERK Primary Care Provider [phone] Vinh Chicas MD Unavailable Encounter Details Date Type Department Care Team (Latest Contact Info) Description 05/08/2018 Orders Only [facility] CLINCONV ProviderHailee MD [address] [place] [address] Social History Tobacco Use Types Packs/Day Years Used Date Smoking Tobacco: Former Sex and Gender Information Value Date Recorded Sex Assigned at Not on file Legal Sex Male 3:57 PM CHANGE COORDINATOR Gender Identity Male 01/08/2020 9:10 AM [...] COVID: Suspected 10/16/2022 10/16/2022 10/16/2022 4:55 PM CHANGE COORDINATOR documented as of this encounter Care Teams Manager Meeting Relationship Specialty Start Date End Date Rebel Jin MD [facility] [address] PCP - General 01/20/18 10/14/18 Nai Ramirez NP [address] [place] [address] [place] [address] PCP - General 10/15/18 04/27/19 Rahul Marshall MD [address] [place] [address] [place] [address] PCP - General 04/28/19 05/14/19 Rebel Jin MD [address] [place] [address] [place] [address] PCP - General Internal Medicine 05/15/19 10/06/19 Nai Ramirez NP [address] [place] [address] [place] [address] PCP - General 10/31/19 04/17/23 Nai Ramirez NP [address] [place] [address] [place] [address] PCP - General 10/07/19 10/30/19 Nai Ramirez, FULFILLMENT MAIL CLERK [address] [place] [address] PCP - General Internal Medicine 04/18/23 Vinh Chicas MD [address] [place] [address] PCP - Cardiology Cardiovascular Disease 06/03/23 Nai Ramirez, FULFILLMENT MAIL CLERK [address] [place] [place] [address] 04/28/19 documented as of this encounter
--- OUTSIDE RECORDS SUMMARY | 2024-10-02 14:48 | XMS_ITS | Clinical Summary ---
Author Organization [facility] [employer] Address [address] [place] [address] Care Team Providers Care Carbon Accountant Name Role Phone Marlene Fox APRN-PUBLIC SERVICES LIBRARIAN Primary Care Provider Source Comments [facility] [employer],non-owned Affiliates and Associated Physician Practices is amultiple site organization consisting of ambulatory clinics and hospital sitesin [place], [place] and [place]. This disclosure is being madepursuant to the Care Everywhere program and may not contain all information available regarding this patient. Last updated 18.[facility] [employer] Allergies No known active allergies Medications * [...] this topic Medical Devices Implanted Type Area Stretcher Leveler Operator Device Identifier Shelf Expiration Date Model / Serial / Lot Plate 5 Hl Fib Lt Dist Lat 99mm Contr Implanted:Qty: 1 on 03/04/2023 by Lyndsey Craig MD at [facility] Left: Ankle Synthes [employer] .[id number] / / Screw 3.5mm 6mm 22mm 2.5mm Ft Slf-Tap Implanted:Qty: 1 on 03/04/2023 by Lyndsey Craig MD at [facility] Left: Ankle Synthes [employer] 204.822 / / Screw 2.7mm 2.1mm 20mm T8 Slf-Tap Lck Implanted:Qty: 2 on 03/04/2023 by Lyndsey Craig MD at [facility] Left: Ankle Synthes [employer]sa 202.220 / / Screw 2.7mm 2.1mm 24mm T8 Slf-Tap Lck Implanted:Qty: 2 on 03/04/2023 by Lyndsey Craig MD at [facility] Left: Ankle Synthes [employer]sa 202.224 / / Screw 3.5mm 6mm 18mm Ft [place] Slf-Tap Sm Implanted:Qty: 1 on 03/04/2023 by Lyndsey Craig MD at [facility] Left: Ankle Synthes Usa 204.818 / / Explanted Type Area Stretcher Leveler Operator Device Identifier Shelf Expiration Date Model / Serial / Lot Screw 2.7mm 5mm 26mm T8 Slf-Tap Strdr Explanted:Qty: 1 on 03/04/2023 by Lyndsey Craig MD at [facility] Left: Ankle Synthes Usa 202.886 / / Screw 2.7mm 2.1mm 24mm T8 Slf-Tap Lck Explanted:Qty: 1 on 03/04/2023 by Lyndsey Craig MD at [facility] Left: Ankle Synthes Usa 202.224 / / Care Teams Carbon Accountant Relationship Specialty Start Date End Date Marlene Fox, CRATE MAKER-PUBLIC SERVICES LIBRARIAN NPI: [id number] [place] [address] [place] [address] PCP - General 06/18/16
--- OUTSIDE RECORDS SUMMARY | 2024-10-02 14:48 | XMS_ITS | Encounter Summary ---
Author Organization [facility] Healthcare Address [address] [place] [address] Care Team Providers Care Traffic Signal Supervisor Maintenance Name Role Phone Nai Ramirez NP Unavailable [phone] Nai Ramirez NP Primary Care Provider [phone] Vinh Chicas MD Unavailable Reason for Visit * Reason Onset Date Comments Headache 10/01/2024 Encounter Details Date Type Department Care Team (Late st Contact Info) Description 10/01/2024 Nurse Triage [facility] Medical Group Internal Medicine at [place] [address] [place] [address] Nai Ramirez NP [address] [place] [address] Social History Tobacco Use Types [...] often do you attend chur ch or congregational services? Never 03/18/2023 Do you belong to any clubs o r organizations such as yazidism groups, unions, fraternal or athletic groups, or [...] on file Legal Sex Male 3:57 PM RIGGER UP Gender Identity Male 01/08/2020 9:10 AM CDT [...] or weak to the triager Protocols used: Dawqpfcy-Fcbhy-CX ER UP * Telephone Encounter - Herminia Jeffries RN - 10/01/2024 9:35 AM CST Regarding: massive headache, nausea and lower back pain, real dizzy when he lays down feeling of almost passing ----- Message from Venecia Marquez sent at 10/01/2024 9:33 AM RIGGER UP ----- Symptom Based Call Chief Complaint(s): massive [...] message need to be routed? Yes-Action Needed ER UP documented in this encounter Plan of Treatment Not on file documented as of this encounter Visit Diagnoses Not on filedocumented in this encounter Care Teams Traffic Signal Supervisor Maintenance Relationship Specialty Start Date End Date Nai Ramirez NP [address] [place] [address] PCP - General Internal Medicine 04/18/23 Vinh Chicas MD [address] [place] [address] PCP - Cardiology Cardiovascular Disease 06/03/23 Nai Ramirez NP 04/28/19 documented as of this encounter
--- OUTSIDE RECORDS SUMMARY | 2024-10-02 14:48 | XMS_ITS | Encounter Summary ---
Author Organization [facility] Facility Care Team Providers Care Biological Sciences Professor Name Role Phone Rebel Jin MD Primary Care Provider [phone] Nai Ramirez HOSPICE CASE MANAGER Primary Care Provider [phone] Rahul Marshall MD Primary Care Provider [phone] Nai Ramirez HOSPICE CASE MANAGER Unavailable [phone] Rebel Jin MD Primary Care Provider [phone] Nai Ramirez HOSPICE CASE MANAGER Primary Care Provider [phone] Nai Ramirez HOSPICE CASE MANAGER Primary Care Provider [phone] Nai Ramirez HOSPICE CASE MANAGER Primary Care Provider [phone] Vinh Chicas MD Unavailable Encounter Details Date Type Department Care Team (Latest Contact Info) Description 10/01/2017 Orders Only [facility] CLINCONV ProviderHailee MD [address] [place] [address] Social History Tobacco Use Types Packs/Day Years Used Date Smoking Tobacco: Former Sex and Gender Information Value Date Recorded Sex Assigned at Not on file Legal Sex Male 3:57 PM AUTOMATIC STEEL TIE ADJUSTER Gender Identity Male 01/08/2020 9:10 AM CDT Sexual Orientation Straight 01/08/2020 9: 10 AM CDT documented as of this encounter Plan of Treatment Not on file documented as of this encounter Procedures Procedure Name Priority Date/Time Associated Diagnosis Comments PROCEDURE - RESULT 09/25/2017 12 :00 AM AUTOMATIC STEEL TIE ADJUSTER documented in this encounter Results * PROCEDURE - RESULT (09/25/2017 12:00 AM AUTOMATIC STEEL TIE ADJUSTER) Narrative 09/25/2017 12:00 AM AUTOMATIC STEEL TIE ADJUSTER Ordered by an unspecified provider. us Historical Provider Final Res ult documented in this encounter Visit Diagnoses Not on filedocumented in this encounter Additional Health Concerns Infection Onset Date Last Indicated Resolved Time COVID: Suspected 10/16/2022 10/16/2022 10/16/2022 4:55 PM AUTOMATIC STEEL TIE ADJUSTER documented as of this encounter Care Teams Biological Sciences Professor Relationship Specialty Start Date End Date Rebel Jin MD [facility] [place] [address] PCP - General 01/20/18 10/14/18 Nai Ramirez NP [address] [place] [address] [place] [address] PCP - General 10/15/18 04/27/19 Rahul Marshall MD [address] [place] [address] [place] [address] PCP - General 04/28/19 05/14/19 Rebel Jin MD [address] [place] [address] [place] [address] PCP - General Internal Medicine 05/15/19 10/06/19 Nai Ramirez NP [address] [place] [address] [place] [address] PCP - General 10/31/19 04/17/23 Nai Ramirez NP [address] [facility] [place] [address] PCP - General 10/07/19 10/30/19 Nai Ramirez, CHRIS [address] [place] [address] PCP - General Internal Medicine 04/18/23 Vinh Chicas MD [address] [place] [address] PCP - Cardiology Cardiovascular Disease 06/03/23 Nai Ramirez, HOSPICE CASE MANAGER [address] [facility] [place] [address] 04/28/19 documented as of this encounter
--- OUTSIDE RECORDS SUMMARY | 2024-10-02 14:48 | XMS_ITS | Encounter Summary ---
Author Organization [facility] Facility Care Team Providers Care Conveyor Technician Name Role Phone Rebel Jin MD Primary Care Provider [phone] Nai Ramirez RN PERIOPERATIVE Primary Care Provider [phone] Rahul Marshall MD Primary Care Provider [phone] Nai Ramirez RN PERIOPERATIVE Unavailable [phone] Rebel Jin MD Primary Care Provider [phone] Nai Ramirez RN PERIOPERATIVE Primary Care Provider [phone] Nai Ramirez RN PERIOPERATIVE Primary Care Provider [phone] Nai Ramirez RN PERIOPERATIVE Primary Care Provider [phone] Vinh Chicas MD Unavailable Encounter Details Date Type Department Care Team (Latest Contact Info) Description 01/10/2016 Orders Only [facility] CLINCONV ProviderHailee MD [address] [place] [address] Social History Tobacco Use Types Packs/Day Years Used Date Smoking Tobacco: Former Sex and Gender Information Value Date Recorded Sex Assigned at Not on file Legal Sex Male 3:57 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 PROGRAMMER Gender Identity Male 01/08/2020 9:10 AM CDT [...] COVID: Suspected 10/16/2022 10/16/2022 10/16/2022 4:55 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 PROGRAMMER documented as of this encounter Care Teams Conveyor Technician Relationship Specialty Start Date End Date Rebel Jin MD [facility]0 [facility] [place] [address] PCP - General 01/20/18 10/14/18 Nai Ramirez NP [address] [place] [address] [place] [address] PCP - General 10/15/18 04/27/19 Rahul Marshall MD [address] [place] [address] [place] [address] PCP - General 04/28/19 05/14/19 Rebel Jin MD [address] [place] [address] [place] [address] PCP - General Internal Medicine 05/15/19 10/06/19 Nai Ramirez NP [address] [place] [address] [place] [address] PCP - General 10/31/19 04/17/23 Nai Ramirez NP [address] [facility] [address] [place] [address] [place] [address] PCP - General 10/07/19 10/30/19 Nai Ramirez, RN PERIOPERATIVE [address] [place] [address] PCP - General Internal Medicine 04/18/23 Vinh Chicas MD [address] [place] [address] PCP - Cardiology Cardiovascular Disease 06/03/23 Nai Ramirez, RN PERIOPERATIVE [address] [facility] [place] [address] 04/28/19 documented as of this encounter
--- OUTSIDE RECORDS SUMMARY | 2024-10-02 14:48 | XMS_ITS | Encounter Summary ---
Author Organization [facility] Facility Care Team Providers Care Hot Mill Shearer Name Role Phone Rebel Jin MD Primary Care Provider [phone] Nai Ramirez STRAP STITCHER Primary Care Provider [phone] Rahul Marshall MD Primary Care Provider [phone] Nai Ramirez STRAP STITCHER Unavailable [phone] Rebel Jin MD Primary Care Provider [phone] Nai Ramirez STRAP STITCHER Primary Care Provider [phone] Nai Ramirez STRAP STITCHER Primary Care Provider [phone] Nai Ramirez STRAP STITCHER Primary Care Provider [phone] Vinh Chicas MD Unavailable Encounter Details Date Type Department Care Team (Latest Contact Info) Description 05/20/2018 Orders Only [facility] CLINCONV ProviderHailee MD [address] [place] [address] Social History Tobacco Use Types Packs/Day Years Used Date Smoking Tobacco: Former Sex and Gender Information Value Date Recorded Sex Assigned at Not on file Legal Sex Male 3:57 PM PHARMACY 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 MANAGER Gender Identity Male 01/08/2020 9:10 AM CDT [...] COVID: Suspected 10/16/2022 10/16/2022 10/16/2022 4:55 PM PHARMACY BENEFIT MANAGER documented as of this encounter Care Teams Hot Mill Shearer Relationship Specialty Start Date End Date Rebel Jin MD [facility] [place] [address] PCP - General 01/20/18 10/14/18 Nai Ramirez NP [address] [place] [address] [place] [address] PCP - General 10/15/18 04/27/19 Rahul Marshall MD [address] [place] [address] [place] [address] PCP - General 04/28/19 05/14/19 Rebel Jin MD [address] [place] [address] [place] [address] PCP - General Internal Medicine 05/15/19 10/06/19 Nai Ramirez NP [address] [place] [address] [place] [address] PCP - General 10/31/19 04/17/23 Nai Ramirez NP [address] [facility] [address] [place] [address] [place] [address] PCP - General 10/07/19 10/30/19 Nai Ramirez, STRAP STITCHER [address] [place] [address] PCP - General Internal Medicine 04/18/23 Vinh Chicas MD [address] [place] [address] PCP - Cardiology Cardiovascular Disease 06/03/23 Nai Ramirez, STRAP STITCHER [address] [facility] [place] [address] 04/28/19 documented as of this encounter
--- OUTSIDE RECORDS SUMMARY | 2024-10-02 14:48 | XMS_ITS | Encounter Summary ---
Author Organization [facility] Facility Care Team Providers Care Senior Instructor Name Role Phone Rebel Jin MD Primary Care Provider [phone] Nai Ramirez BINMAN Primary Care Provider [phone] Rahul Marshall MD Primary Care Provider [phone] Nai Ramirez BINMAN Unavailable [phone] Rebel Jin MD Primary Care Provider [phone] Nai Ramirez BINMAN Primary Care Provider [phone] Nai Ramirez BINMAN Primary Care Provider [phone] Nai Ramirez BINMAN Primary Care Provider [phone] Vinh Chicas MD Unavailable Encounter Details Date Type Department Care Team (Latest Contact Info) Description 04/16/2018 Orders Only [facility] CLINCONV ProviderHailee MD [address] [place] [address] Social History Tobacco Use Types Packs/Day Years Used Date Smoking Tobacco: Former Sex and Gender Information Value Date Recorded Sex Assigned at Not on file Legal Sex Male 3:57 PM TELESALES PROFESSIONAL Gender Identity Male 01/08/2020 9:10 AM CDT [...] COVID: Suspected 10/16/2022 10/16/2022 10/16/2022 4:55 PM TELESALES PROFESSIONAL documented as of this encounter Care Teams Senior Instructor Relationship Specialty Start Date End Date Rebel Jin MD [facility]0 [facility] [place] [address] PCP - General 01/20/18 10/14/18 Nai Ramirez NP [address] [place] [address] [place] [address] PCP - General 10/15/18 04/27/19 Rahul Marshall MD [address] [place] [address] [place] [address] PCP - General 04/28/19 05/14/19 Rebel Jin MD [address] [place] [address] [place] [address] PCP - General Internal Medicine 05/15/19 10/06/19 Nai Ramirez NP [address] [place] [address] [place] [address] PCP - General 10/31/19 04/17/23 Nai Ramirez NP [address] [facility] [address] [place] [address] [place] [address] PCP - General 10/07/19 10/30/19 Nai Ramirez, BINMAN [address] [place] [address] PCP - General Internal Medicine 04/18/23 Vinh Chicas MD [address] [place] [address] PCP - Cardiology Cardiovascular Disease 06/03/23 Nai Ramirez, BINMAN [address] [facility] [place] [address] 04/28/19 documented as of this encounter
--- OUTSIDE RECORDS SUMMARY | 2024-10-02 14:48 | XMS_ITS | Encounter Summary ---
Author Organization [facility] Facility Care Team Providers Care Fruit Or Nut Farm Worker Name Role Phone Rebel Jin MD Primary Care Provider [phone] Nai Ramirez MAORI PHYSIOTHERAPIST Primary Care Provider [phone] Rahul Marshall MD Primary Care Provider [phone] Nai Ramirez MAORI PHYSIOTHERAPIST Unavailable [phone] Rebel Jin MD Primary Care Provider [phone] Nai Ramirez MAORI PHYSIOTHERAPIST Primary Care Provider [phone] Nai Ramirez MAORI PHYSIOTHERAPIST Primary Care Provider [phone] Nai Ramirez MAORI PHYSIOTHERAPIST Primary Care Provider [phone] Vinh Chicas MD Unavailable Encounter Details Date Type Department Care Team (Latest Contact Info) Description 06/23/2018 Orders Only [facility]G CLINCONV ProviderHailee MD [address] [place] [address] Social History Tobacco Use Types Packs/Day Years Used Date Smoking Tobacco: Former Sex and Gender Information Value Date Recorded Sex Assigned at Not on file Legal Sex Male 3:57 PM QUALIFICATION ENGINEER Gender Identity Male 01/08/2020 9:10 AM CDT [...] COVID: Suspected 10/16/2022 10/16/2022 10/16/2022 4:55 PM QUALIFICATION ENGINEER documented as of this encounter Care Teams Fruit Or Nut Farm Worker Relationship Specialty Start Date End Date Rebel Jin MD [address] [facility] [place] [address] PCP - General 01/20/18 10/14/18 Nai Ramirez, CHRIS [address] [place] [address] [place] [address] PCP - General 10/15/18 04/27/19 Rahul Marshall MD [address] [facility] [place] [address] PCP - General 04/28/19 05/14/19 Rebel Jin MD [address] [facility] [place] [address] PCP - General Internal Medicine 05/15/19 10/06/19 Nai Ramirez NP [address] [place] [address] [place] [address] PCP - General 10/31/19 04/17/23 Nai Ramirez NP [address] [facility] [address] [place] [address] [place] [address] PCP - General 10/07/19 10/30/19 Nai Ramirez, CHRIS [address] [place] [address] PCP - General Internal Medicine 04/18/23 Vinh Chicas MD [address] [place] [address] PCP - Cardiology Cardiovascular Disease 06/03/23 Nai Ramirez, CHRIS [address] [facility] [place] [address] 04/28/19 documented as of this encounter
--- OUTSIDE RECORDS SUMMARY | 2024-10-02 14:48 | XMS_ITS | Encounter Summary ---
Author Organization [facility] Facility Care Team Providers Care Cutlet Maker Pork Name Role Phone Rebel Jin MD Primary Care Provider [phone] Nai Ramirez GUIDE TOUR Primary Care Provider [phone] Rahul Marshall MD Primary Care Provider [phone] Nai Ramirez GUIDE TOUR Unavailable [phone] Rebel Jin MD Primary Care Provider [phone] Nai Ramirez GUIDE TOUR Primary Care Provider [phone] Nai Ramirez GUIDE TOUR Primary Care Provider [phone] Nai Ramirez GUIDE TOUR Primary Care Provider [phone] Vinh Chicas MD Unavailable Encounter Details Date Type Department Care Team (Latest Contact Info) Description 10/09/2016 Orders Only MMG CLINCONV ProviderHailee MD [address] [place] [address] Social History Tobacco Use Types Packs/Day Years Used Date Smoking Tobacco: Former Sex and Gender Information Value Date Recorded Sex Assigned at Not on file Legal Sex Male 3:57 PM SENIOR ORACLE DATABASE ADMINISTRATOR Gender Identity Male 01/08/2020 9:10 AM [...] COVID: Suspected 10/16/2022 10/16/2022 10/16/2022 4:55 PM SENIOR ORACLE DATABASE ADMINISTRATOR documented as of this encounter Care Teams Cutlet Maker Pork Relationship Specialty Start Date End Date Rebel Jin MD [address] [facility] [place] [address] PCP - General 01/20/18 10/14/18 Nai Ramirez, GUIDE TOUR [address] [facility] [address] [place] [address] [place] [address] PCP - General 10/15/18 04/27/19 Rahul Marshall MD [facility] [place] [address] PCP - General 04/28/19 05/14/19 Rebel Jin MD [address] [facility] [place] [address] PCP - General Internal Medicine 05/15/19 10/06/19 Nai Ramirez NP [address] [facility] [place] [address] PCP - General 10/31/19 04/17/23 Nai Ramirez GUIDE TOUR [address] [facility] [place] [address] PCP - General 10/07/19 10/30/19 Nai Ramirez NP [address] [place] [address] PCP - General Internal Medicine 04/18/23 Vinh Chicas MD [address] [place], [place] [address] PCP - Cardiology Cardiovascular Disease 06/03/23 Nai Ramirez, CHRIS [address] [facility] [place] [address] 04/28/19 documented as of this encounter
--- OUTSIDE RECORDS SUMMARY | 2024-10-02 14:48 | XMS_ITS | Encounter Summary ---
Author Organization [facility] Facility Care Team Providers Care Pastry Cook Name Role Phone Rebel Jin MD Primary Care Provider [phone] Nai Ramirez CLASSIFICATION INSPECTOR Primary Care Provider [phone] Rahul Marshall MD Primary Care Provider [phone] Nai Ramirez CLASSIFICATION INSPECTOR Unavailable [phone] Rebel Jin MD Primary Care Provider [phone] Nai Ramirez CLASSIFICATION INSPECTOR Primary Care Provider [phone] Nai Ramirez CLASSIFICATION INSPECTOR Primary Care Provider [phone] Nai Ramirez CLASSIFICATION INSPECTOR Primary Care Provider [phone] Vinh Chicas MD Unavailable Encounter Details Date Type Department Care Team (Latest Contact Info) Description 01/14/2018 Orders Only MMG CLINCONV ProviderHailee MD [address] [place] [address] Social History Tobacco Use Types Packs/Day Years Used Date Smoking Tobacco: Former Sex and Gender Information Value Date Recorded Sex Assigned at Not on file Legal Sex Male 3:57 PM FOOTWEAR FACTORY WORKER Gender Identity Male 01/08/2020 9:10 AM [...] COVID: Suspected 10/16/2022 10/16/2022 10/16/2022 4:55 PM FOOTWEAR FACTORY WORKER documented as of this encounter Care Teams Pastry Cook Relationship Specialty Start Date End Date Rebel Jin MD [facility]0 [facility] [place] [address] PCP - General 01/20/18 10/14/18 Nai Ramirez, CLASSIFICATION INSPECTOR [address] [place] [address] [place] [address] PCP - General 10/15/18 04/27/19 Rahul Marshall MD [facility]0 [facility] [place] [address] PCP - General 04/28/19 05/14/19 Rebel Jin MD [address] [place] [address] [place] [address] PCP - General Internal Medicine 05/15/19 10/06/19 Nai Ramirez NP [address] [place] [address] [place] [address] PCP - General 10/31/19 04/17/23 Nai Ramirez NP [address] [facility] [address] [place] [address] PCP - General 10/07/19 10/30/19 Nai Ramirez, CLASSIFICATION INSPECTOR [address] [place] [address] PCP - General Internal Medicine 04/18/23 Vinh hCicas MD [address] [place] [address] PCP - Cardiology Cardiovascular Disease 06/03/23 Nai Ramirez, CLASSIFICATION INSPECTOR [address] [facility] [place] [address] 04/28/19 documented as of this encounter
--- OUTSIDE RECORDS SUMMARY | 2024-10-02 14:48 | XMS_ITS | Encounter Summary ---
Author Organization [facility] Healthcare Address [address] [place] [address] Care Team Providers Care Supervisor Carpenters Name Role Phone Nai Ramirez NP Unavailable [phone] Nai Ramirez NP Primary Care Provider [phone] Vinh Chicas MD Unavailable Reason for Visit * Reason Onset Date Comments Headache 10/01/2024 Encounter Details Date Type Department Care Team (Late st Contact Info) Description 10/01/2024 Nurse Triage [facility] Medical Group Internal Medicine at [place] [address] [facility] [address] [place] [address] Dominga Wolfe RN Social History [...] How often do you attend chur or cheondoism services? Never 03/18/2023 Do you belong to any clubs o r organizations such as yazdanism groups, unions, fraternal or athletic groups, or [...] on file Legal Sex Male 3:57 PM COYOTE HUNTER Gender Identity Male 01/08/2020 9:10 AM CDT Sexual Orientation Straight 01/08/2020 9: 10 AM CDT documented as of this encounter Miscellaneous Notes * Telephone Encounter - Dominga Wolfe RN - 10/01/2024 1:16 PM COYOTE HUNTER Robert Watson's daughter Juan Edward (not on [...] occurred 4 years ago. He [facility] on 09.23.24 and symptoms have [...] daughter states she will take him to [facility] ED in [place]. Routing FYI to office. Reason for Disposition SEVERE headache, sudden-onset (i.e., reaching maximum intensity within seconds to 1 hour) Protocols used: [id number] TE HUNTER * Telephone Encounter - Dominga Wolfe RN - 10/01/2024 1:06 PM COYOTE HUNTER Regarding: severe headaches w/dizziness ----- Message from Starla Bonnie sent at 10/01/2024 1:06 PM COYOTE HUNTER ----- Symptom Based Call Chief Complaint(s): severe headaches w/dizziness Duration: 2 days What type of symptom(s) is the patient experiencing? Red Flag. Is the patient concerned they are experiencing a medical emergency requiring an ambulance? No Additional Comments: Requesting [place] appt. Does message need to be routed? Yes-Action Needed TE HUNTER documented in this encounter Plan of Treatment Not on file documented as of this encounter Visit Diagnoses Not on filedocumented in this encounter Care Teams Supervisor Carpenters Relationship Specialty Start Date End Date Nai Ramirez NP [address] [place] [address] PCP - General Internal Medicine 04/18/23 Vinh Chicas MD [address] [place] [address] PCP - Cardiology Cardiovascular Disease 06/03/23 Nai Ramirez NP 04/28/19 documented as of this encounter
[2024-10-02 15:27] LABS: Basophils Percent Auto 0.3 % (0.2-1.2); Eosinophils Absolute Auto 0.1 K/mm3 (0-0.3); Eosinophils Percent Auto 0.7 % (0-4.4); Hematocrit 43.9 % (42.0-52.0); Immature Granulocyte Absolute 0.03 K/mm3 (0.00-0.031); Immature Granulocyte Percent A 0.4 % (0-0.5); Lymphocytes Absolute Auto 1.67 K/mm3 (0.9-3.2); Lymphocytes Percent Auto 23.1 % (18.3-44.2); Mean Corpuscular HGB Conc 34.2 g/dl (32-36); Mean Corpuscular Hemoglobin 32.8 pg (26-34); Mean Corpuscular Volume 95.9 fl (80-100); Mean Platelet Volume 8.9 fl (7.4-10.4); Monocytes Absolute Auto 0.6 K/mm3 (0.1-0.6); Neutrophils Absolute Auto 4.9 K/mm3 (1.3-6.7); Neutrophils Percent Auto 67.5 % (45.5-73.1); Platelet Count Result 227 k/mm3 (150-375); Red Blood Count 4.58 M/mm3 (4.6-6.20); Red Cell Distribution Width 12.5 % (11.5-14.5); White Blood Count 7.2 K/mm3 (4.5-10.0)
[2024-10-02 15:39] LABS: Alanine Aminotransferase 17 U/L (6-50); Albumin Level 4.1 g/dL (3.5-5.1); Alkaline Phosphatase 85 U/L (38-126); Anion Gap 11 mmol/L (4-12); Aspartate Amino Transferase 19 U/L (17-59); Bilirubin,Total 0.6 mg/dL (0.2-1.3); Blood Urea Nitrogen 18 mg/dL (9-20); Calcium 9.4 mg/dL (8.4-10.2); Carbon Dioxide 19 mmol/L (22-30); Chloride 107 mmol/L (98-107); Estimated CRCL calculation 83 ml/min; Estimated Glomerular Filt Rate > 60; Glucose 94 mg/dL (65-110); Potassium 3.9 mmol/L (3.4-5.0); Prothrombin Time 13.7 Seconds (11.1-14.7); Sodium 137 mmol/L (137-145)
[2024-10-02 15:40] LABS: Partial Thromboplastin Time 26.3 Seconds (22.3-36.8)
[2024-10-02 15:50] LABS: Troponin I < 0.012 ng/mL (0.000-0.034)
--- NOTE | 2024-10-02 18:08 | ED.HA ---
HPI - Headache General Chief Complaint: Headache Stated Complaint: headache x10 days Time Seen by Provider: 10/02/24 13:44 History of Present Illness HPI Narrative: 64 YEARS OLD WHITE MALE CAME TO THE ED BY PRIVATE CAR COMPLAINING OF NECK PAIN, HEADACHE, INTERMITTENT DIZZINESS, SPINNING ASSOCIATED WITH NAUSEA FOR THE LAST FEW DAYS. PATIENT IS TELLING ME THAT HE HAD SIMILAR SYMPTOMS 4 YEARS AGO RESOLVED AFTER HAVING CORTISONE SHOTS IN THE NECK. PATIENT REPORTS A LOT OF STRESS LATELY, LOST HIS FEW MONTHS AGO AND LIVE WITH HIS DAUGHTER RIGHT NOW. HE WORKS ON A [employer] LEFT WITH A LOT OF BOUNCING CAUSING HIM TO HAVE HEADACHE AND NECK PAIN. HE DENIES ANY FEVER, CHILLS, NAUSEA, VOMITING, VISION PROBLEM, CHEST PAIN, SHORTNESS OF BREATH OR ABDOMINAL PAIN OR BACK PAIN. PATIENT REPORTS DIZZINESS WHEN PATIENT BEND OVER OR LAY DOWN UNDER A CAR TO FIX IT HE GET DIZZY AND FEEL LIKE GOING TO BLACK OUT. PATIENT IS HEALTHY OTHERWISE, CURRENTLY ON BABY ASPIRIN ONCE A DAY, SMOKES CIGARETTES, USES MARIJUANA OCCASIONALLY, DRINKS ALCOHOL OCCASIONALLY Related Data Allergies Allergy/AdvReac Type Severity Reaction Status Date / Time No Known Allergies Allergy Unverified 10/09/16 19:42 Review of Systems Review of Systems: All systems reviewed & are unremarkable except as noted in HPI and below Exam Narrative: GENERAL APPEARANCE: WELL-DEVELOPED, WELL-NOURISHED SKIN: NORMAL COLOR HEAD: NORMOCEPHALIC, NONTRAUMATIC EYES: CLEAR CONJUNCTIVA ENT: OROPHARYNX NORMAL DIFFUSE NECK: SUPPLE, DIFFUSE TENDERNESS POSTERIORLY WITH LIGHT PALPATION, NO SWELLING, NO BRUISES, NO MASS CHEST AND RESPIRATORY: AIRWAY PATENT, NO RESPIRATORY DISTRESS, NO ACCESSORY MUSCLE USE HEART: REGULAR RATE/RHYTHM ABDOMEN: SOFT, NONTENDER, NO ORGANOMEGALY, QUIET BOWEL SOUNDS VASCULAR: NORMAL PERIPHERAL PULSES, NORMAL CAPILLARY REFILL. MUSCULOSKELETAL: NORMAL RANGE OF MOTION, NONTENDER BACK DIFFUSE TENDERNESS NEUROLOGIC: ALERT AND ORIENTED ?3, FINANCIAL LEGAL ASSISTANT IS NORMAL TESTED, NO GROSS MOTOR DEFICIT Course Vital Signs Vital signs: Vital Signs Temperature 36.6 C 10/02/24 12:25 Pulse Rate 62 10/02/24 12:25 Respiratory Rate 16 10/02/24 12:25 Blood Pressure 147/90 H 10/02/24 12:25 Pulse Oximetry 100 10/02/24 12:25 Oxygen Delivery Room Air 10/02/24 12:25 Temperature 36.6 C 10/02/24 12:25 Pulse Rate 62 10/02/24 12:25 Respiratory Rate 16 10/02/24 12:25 Blood Pressure 147/90 H 10/02/24 12:25 Pulse Oximetry 100 10/02/24 12:25 Oxygen Delivery Room Air 10/02/24 12:25 MDM - Headache MDM Narrative Medical decision making narrative: PATIENT PRESENTS WITH NECK PAIN, HEADACHE, VERTIGO-LIKE SYMPTOMS FOR THE LAST FEW DAYS VITAL SIGNS ARE STABLE PHYSICAL EXAMINATION CONSISTENT WITH DEPRESSION, DIFFUSE TENDERNESS OF THE NECK POSTERIORLY, DIFFERENTIAL DIAGNOSIS INCLUDE ANXIETY, DEPRESSION, BENIGN POSITIONAL VERTIGO, HEADACHE SECONDARY TO NECK MUSCLE STRAIN/SPRAIN PATIENT WORKS ON [employer] WITH A LOT OF BOUNCING. BLOOD WORKUP TODAY INCLUDES CBC, CMP SHOWED INSIGNIFICANT ABNORMALITIES CT HEAD WITHOUT CONTRAST SHOWED NO ACUTE ABNORMALITY, CT CERVICAL SPINE WITHOUT CONTRAST SHOWED NO ACUTE ABNORMALITY, CHEST X-RAY SHOWED NO ACUTE ABNORMALITY. DIAGNOSIS NECK PAIN SECONDARY TO MUSCULAR STRAIN/SPRAIN, SECONDARY TO THE CAN OF WORKING HE DOES PROBABLY NEED TO REPEAT CORTISONE INJECTION. MY PLAN TO DISCHARGE HIM ON ANTI-INFLAMMATORY AND MUSCLE RELAXANT, ALSO ON MECLIZINE AND ZOFRAN FOR INTERMITTENT POSITIONAL VERTIGO. THE PT WAS DISCHARGED TO HOME.THE PT,S CONDITION UPON DISCHARGE WAS FAIR,EDUCATION WAS PROVIDED TO THE PT IN REFERENCE TO THE FINAL IMPRESSION,DISCHARGE STUDY RESULTS,TREATMENT,PROGNOSIS AND NEED FOR FOLLOW UP . Differential Diagnosis Differential diagnosis: Likely other ( ABOVE) Medical Records Attestation: I reviewed the patient's medical records. Lab Data Attestation: I reviewed the patient's lab results. 10/02/24 15:19 10/02/24 15:19 Labs: Lab Results 10/02/24 Range/Units 15:19 WBC 7.2 (4.5-10.0) K/mm3 RBC 4.58 L (4.6-6.20) M/mm3 Hgb 15.0 (14.0-18.0) g/dL Hct 43.9 (42.0-52.0) % MCV 95.9 (80-100) fl MCH 32.8 (26-34) pg MCHC 34.2 (32-36) g/dl RDW 12.5 (11.5-14.5) % Plt Count 227 (150-375) k/mm3 MPV 8.9 (7.4-10.4) fl Immature Gran % (Auto) 0.4 (0-0.5) % Neut % (Auto) 67.5 (45.5-73.1) % Lymph % (Auto) 23.1 (18.3-44.2) % [place] % (Auto) 8.0 (2.6-8.5) % Eos % (Auto) 0.7 (0-4.4) % Baso % (Auto) 0.3 (0.2-1.2) % Lymph # (Auto) 1.67 (0.9-3.2) K/mm3 [place] # (Auto) 0.6 (0.1-0.6) K/mm3 Eos # (Auto) 0.1 (0-0.3) K/mm3 Baso # (Auto) 0.0 (0.0-0.1) K/mm3 Abs Immat Gran (auto) 0.03 (0.00-0.031) K/mm3 Absolute Neuts (auto) 4.9 (1.3-6.7) K/mm3 Absolute Nucleated RBC 0.000 (0.0-0.012) K/mm3 Nucleated RBC % 0.0 (0.0-0.2) % PT 13.7 (11.1-14.7) Seconds INR 1.0 APTT 26.3 (22.3-36.8) Seconds Sodium 137 (137-145) mmol/L Potassium 3.9 (3.4-5.0) mmol/L Chloride 107 (98-107) mmol/L Carbon Dioxide 19 L (22-30) mmol/L Anion Gap 11 (4-12) mmol/L BUN 18 (9-20) mg/dL Creatinine 0.92 (0.7-1.3) mg/dL Estim Creat Clear Calc 83 ml/min Estimated GFR > 60 (59 - ) Glucose 94 (65-110) mg/dL Calcium 9.4 (8.4-10.2) mg/dL Total Bilirubin 0.6 (0.2-1.3) mg/dL AST 19 (17-59) U/L ALT 17 (6-50) U/L Alkaline Phosphatase 85 (38-126) U/L Troponin I < 0.012 (0.000-0.034) ng/mL Total Protein 7.0 (6.3-8.2) g/dL Albumin 4.1 (3.5-5.1) g/dL Imaging Data Radiologist's impression: Impressions Chest X-Ray 10/02/24 14:27 IMPRESSION: 1: NO ACUTE CARDIOPULMONARY DISEASE. Head CT 10/02/24 14:49 IMPRESSION: 1. Normal aging brain. No acute intracranial process. Cervical Spine CT 10/02/24 15:05 IMPRESSION: 1. Interval progression of mild to moderate cervical spondylosis. Critical Care Time Critical Care Time Critical Care Time: No Discharge Plan Discharge Clinical Impression: Cervicalgia, Headache, Vertigo, Depression Patient Disposition: Home, Self-Care Condition: Stable Instructions: Benign Paroxysmal Positional Vertigo (DC), Neck Pain (ED), Depression in Older Adults (ED) Additional Instructions: RETURN IF SYMPTOMS ARE WORSENING , CALL YOUR FAMILY PHYSICIAN FOR APPOINTMENT, TAKE TYLENOL NEEDED FOR ACHES AND PAIN, CONTINUE HOME MEDICATIONS. Patient Language: [place] Prescriptions: New diclofenac sodium 75 mg tablet,delayed release (DR/EC) 75 mg PO BID PRN (Reason: pain) Qty: 14 0RF cyclobenzaprine 7.5 mg tablet 7.5 mg PO TID Qty: 20 0RF ondansetron HCl 4 mg tablet 4 mg PO Q4H Qty: 10 0RF Rx Instructions: 1st dose 1-2 hr before radiation meclizine [Bonine] 25 mg tablet,chewable 25 mg PO TID Qty: 20 0RF Follow-up/Referrals: Davin,Rebel Carvalho MD [Primary Care Provider] -
[2024-10-02] MEDS: KETOROLAC 30 MG/ML VIAL (*BKC) IV PUSH (18:23)
[2024-10-02 21:06] VITALS: BP 137/80; PULSE 60; RESP 16; TEMP 36.6; O2SAT 99
[2024-10-02 21:08] VITALS: BP 95/66; PULSE 60
[2024-10-02 21:10] VITALS: BP 126/81; PULSE 58
[2024-10-02 21:12] VITALS: BP 153/88; PULSE 87
== END 2024-10-02 22:12 | disposition home or self-care (01) ==
PROVIDERS: Physician Assistant; Emergency Provider Emergency Medicine; PCP Internal Medicine
DX: M54.2 Cervicalgia (principal); R51.9 Headache, unspecified; R42 Dizziness and giddiness; F32.A Depression, unspecified; F17.210 Nicotine dependence, cigarettes, uncomplicated; M47.812 Spondylosis without myelopathy or radiculopathy, cervical region; R00.1 Bradycardia, unspecified; I49.1 Atrial premature depolarization; Z79.82 Long term (current) use of aspirin
CPT/HCPCS: 36415; 70450; 71046; 72125; 80053; 84484; 85025; 85610; 85730; 93005; 96374; 99284; J1885

== ENCOUNTER 2024-10-24 08:25 | Emergency (ER) | payer MEDICARE, BC, SELFPAY ==
--- NOTE | ~2024-10-24 | CT_ITS ---
EXAMINATION: CT cervical spine wo con DATE: 10/24/2024 09:38 INDICATION: Neck pain post trauma TECHNIQUE: Computed tomography (CT) of the cervical spine was performed without intravenous contrast. Automated exposure control and iterative reconstruction technique were employed. The dose-length pro duct was 357.92 mGy-cm. COMPARISON: 10/02/2024 FINDINGS: Slight reversal of the normal cervical lordosis which could be positional or due to muscle spasm. No spondylolisthesis or facet subluxation. Vertebral body heights are normal. No fracture. Moderate disc height loss at C5-C6 and mild disc height loss at C3-C4, C4-C5 and C6-C7. Multilevel bilateral mild to moderate cervical facet and uncovertebral osteoarthritis. See prior CT report for level by level a nalysis of the mild to moderate cervical spondylosis. Mild emphysema and pleural parenchymal scarring at the apices. IMPRESSION: 1. Mild reversal of the normal cervical lordosis which is likely positional or due to muscle spasm. N o acute osseous abnormality. 2. Mild to moderate cervical spondylosis. Reviewed, dictated and finalized at location A. RTING OPERATOR IMPRESSION: 1. Mild reversal of the normal cervical lordosis which is likely positional or due to muscle spasm. No acute osseous abnormality. 2. Mild to moderate cervical spondylosis.
--- NOTE | ~2024-10-24 | CT_ITS ---
EXAMINATION: CT brain wo con DATE: 10/24/2024 09:38 INDICATION: Trauma with headache and neck pain TECHNIQUE: Computed tomography (CT) of the head was performed without intravenous contrast. Sagittal and coronal reconstructions were performed. The mA was adjusted according to patient size. Iterative reconstruction technique was employed. The dose-length product was 605.33 mGy-cm. COMPARISON: head CT dated 10/02/2024 FINDINGS: Chronic linear scarring at the left parieto-occipital scalp. No fracture. No acute intracranial hemor rhage, acute infarction or abnormal extra axial fluid collection. Ventricles are normal and symmetric . No mass/mass effect. Mild mucosal thickening the right maxillary and sphenoid sinuses. The orbits a nd mastoid air cells are normal. IMPRESSION: 1. Normal aging brain. No fracture or acute intracranial process. Reviewed, dictated and finalized at location A. NISTRATIVE RESIDENT
[2024-10-24 08:26] VITALS: BP 148/79; PULSE 87; RESP 18; TEMP 36.5; O2SAT 100
--- OUTSIDE RECORDS SUMMARY | 2024-10-24 08:28 | XMS_ITS | Encounter Summary ---
Author Organization [facility] Facility Care Team Providers Care Credit Correspondence Clerk Name Role Phone Rebel Jin MD Primary Care Provider [phone] Nai Ramirez MOTTLER OPERATOR Primary Care Provider [phone] Rahul Marshall MD Primary Care Provider [phone] Nai Ramirez MOTTLER OPERATOR Unavailable [phone] Rebel Jin MD Primary Care Provider [phone] Nai Ramirez MOTTLER OPERATOR Primary Care Provider [phone] Nai Ramirez MOTTLER OPERATOR Primary Care Provider [phone] Nai Ramirez MOTTLER OPERATOR Primary Care Provider [phone] Vinh Chicas MD Unavailable Encounter Details Date Type Department Care Team (Latest Contact Info) Description 10/01/2017 Orders Only [facility] CLINCONV ProviderHailee MD [address] [place] [id number] Social History Tobacco Use Types Packs/Day Years Used Date Smoking Tobacco: Former Sex and Gender Information Value Date Recorded Sex Assigned at Not on file Legal Sex Male 3:57 PM CONTACT AND SERVICE [employer]ERKS SUPERVISOR Gender Identity Male 01/08/2020 9:10 AM CDT Sexual Orientation Straight 01/08/2020 9: 10 AM CDT documented as of this encounter Plan of Treatment Not on file documented as of this encounter Procedures Procedure Name Priority Date/Time Associated Diagnosis Comments PROCEDURE - RESULT 09/25/2017 12 :00 AM CONTACT AND SERVICE CLERKS SUPERVISOR documented in this encounter Results * PROCEDURE - RESULT (09/25/2017 12:00 AM CONTACT AND SERVICE CLERKS SUPERVISOR) Narrative 09/25/2017 12:00 AM CONTACT AND SERVICE CLERKS SUPERVISOR Ordered by an unspecified provider. us Historical Provider Final Res ult documented in this encounter Visit Diagnoses Not on filedocumented in this encounter Additional Health Concerns Infection Onset Date Last Indicated Resolved Time COVID: Suspected 10/16/2022 10/16/2022 10/16/2022 4:55 PM CONTACT AND SERVICE CLERKS SUPERVISOR documented as of this encounter Care Teams Credit Correspondence Clerk Relationship Specialty Start Date End Date Rebel Jin MD [facility] [place] [address] PCP - General 01/20/18 10/14/18 Nai Ramirez NP [address] [place] [address] [place] [address] PCP - General 10/15/18 04/27/19 Rahul Marshall MD [address] [place] [address] [place] [address] PCP - General 04/28/19 05/14/19 Rebel Jin MD [address] [place] [address] [place] [address] PCP - General Internal Medicine 05/15/19 10/06/19 Nai Ramirez NP [address] [place] [address] [place] [address] PCP - General 10/31/19 04/17/23 Nai Ramirez NP [address] [place] [address] PCP - General 10/07/19 10/30/19 Nai Ramirez, CHRIS [address] [place] [address] PCP - General Internal Medicine 04/18/23 Vinh Chicas MD [address] [place] [address] PCP - Cardiology Cardiovascular Disease 06/03/23 Nai Ramirez, MOTTLER OPERATOR [address] [place] [address] 04/28/19 documented as of this encounter
--- OUTSIDE RECORDS SUMMARY | 2024-10-24 08:28 | XMS_ITS | Encounter Summary ---
Author Organization [facility] Facility Care Team Providers Care Assistant Sales Center Manager Name Role Phone Rebel Jin MD Primary Care Provider [phone] Nai Ramirez ACID SUPERVISOR Primary Care Provider [phone] Rahul Marshall MD Primary Care Provider [phone] Nai Ramirez ACID SUPERVISOR Unavailable [phone] Rebel Jin MD Primary Care Provider [phone] Nai Ramirez ACID SUPERVISOR Primary Care Provider [phone] Nai Ramirez ACID SUPERVISOR Primary Care Provider [phone] Nai Ramirez ACID SUPERVISOR Primary Care Provider [phone] Vinh Chicas MD Unavailable Encounter Details Date Type Department Care Team (Latest Contact Info) Description 10/10/2016 Orders Only [facility] CLINCONV ProviderHailee MD [address] [place] [address] Social History Tobacco Use Types Packs/Day Years Used Date Smoking Tobacco: Former Sex and Gender Information Value Date Recorded Sex Assigned at Not on file Legal Sex Male 3:57 PM SUPERVISOR [employer] Gender Identity Male 01/08/2020 9:10 AM CDT [...] COVID: Suspected 10/16/2022 10/16/2022 10/16/2022 4:55 PM SUPERVISOR [employer] documented as of this encounter Care Teams Assistant Sales Center Manager Relationship Specialty Start Date End Date Rebel Jin MD [address] [place] [address] [place] [address] PCP - General 01/20/18 10/14/18 Nai Ramirez NP [address] [place] [address] PCP - General 10/15/18 04/27/19 Rahul Marshall MD [address] [place] [address] PCP - General 04/28/19 05/14/19 Rebel Jin MD [address] [place] [address] PCP - General Internal Medicine 05/15/19 10/06/19 Nai Ramirez, CHRIS [address] [place] [address] [place] [address] PCP - General 10/31/19 04/17/23 Nai Ramirez NP [address] [place] [address] [place] [address] PCP - General 10/07/19 10/30/19 Nai Ramirez, CHRIS [address] [address] PCP - General Internal Medicine 04/18/23 iVnh Chicas MD [address] [address] PCP - Cardiology Cardiovascular Disease 06/03/23 Nai Ramirez, ACID SUPERVISOR [address] [place] [address] [place] [address] 04/28/19 documented as of this encounter
--- OUTSIDE RECORDS SUMMARY | 2024-10-24 08:28 | XMS_ITS | Clinical Summary ---
Author Organization [facility] Address [address] [place] [address] Care Team Providers Care Utility Aide Name Role Phone Marlene Fox APRN-UNDER SHERIFF Primary Care Provider Source Comments [facility],non-owned Affiliates and Associated Physician Practices is amultiple site organization consisting of ambulatory clinics and hospital sitesin [place], [place], [place] and [place]. This disclosure is being madepursuant to the Care Everywhere program and may not contain all information available regarding this patient. Last updated 18.[facility] Allergies No known active allergies Medications * [...] 57 03/04/2023 11:10 AM CDT Temperature 36.7 C (98 F) 03/04/2023 10:20 AM CDT Respiratory Rate 9 [...] this topic Medical Devices Implanted Type Area Payment Poster Device Identifier Shelf Expiration Date Model / Serial / Lot Plate 5 Hl Fib Lt Dist Lat 99mm Contr Implanted:Qty: 1 on 03/04/2023 by Lyndsey Craig MD at [facility] Left: Ankle Synthes [employer] .141S / / Screw 3.5mm 6mm 22mm 2.5mm Ft Slf-Tap Implanted:Qty: 1 on 03/04/2023 by Lyndsey Craig MD at [facility] Left: Ankle [employer]ynthes [employer] 204.822 / / Screw 2.7mm 2.1mm 20mm T8 Slf-Tap Lck Implanted:Qty: 2 on 03/04/2023 by Lyndsey Craig MD at [facility] Left: Ankle Synthes [employer] 202.220 / / Screw 2.7mm 2.1mm 24mm T8 Slf-Tap Lck Implanted:Qty: 2 on 03/04/2023 by Lyndsey Craig MD at [facility] Left: Ankle Synthes [employer] 202.224 / / Screw 3.5mm 6mm 18mm [place] Slf-Tap Sm Implanted:Qty: 1 on 03/04/2023 by Lyndsey Craig MD at [facility] Left: Ankle Synthes [employer] 204.818 / / Explanted Type Area Payment Poster Device Identifier Shelf Expiration Date Model / Serial / Lot Screw 2.7mm 5mm 26mm T8 Slf-Tap Strdr Explanted:Qty: 1 on 03/04/2023 by Lyndsey Craig MD at [facility] Left: Ankle Synthes [employer] 202.886 / / Screw 2.7mm 2.1mm 24mm T8 Slf-Tap Lck Explanted:Qty: 1 on 03/04/2023 by Lyndsey Craig MD at [facility] Left: Ankle Synthes [employer] 202.224 / / Care Teams Utility Aide Relationship Specialty Start Date End Date Marlene Fox, [employer] C[employer]-UNDER SHERIFF [address] [place] [phone] PCP - General 06/18/16
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
--- OUTSIDE RECORDS SUMMARY | 2024-10-24 08:28 | XMS_ITS | Encounter Summary ---
Author Organization [facility] Facility Care Team Providers Care Furnace Cleaner Name Role Phone Rebel Jin MD Primary Care Provider [phone] Nai Ramirez ELECTRICIAN CONSTRUCTOR SUPERVISOR Primary Care Provider [phone] Rahul Marshall MD Primary Care Provider [phone] Nai Ramirez ELECTRICIAN CONSTRUCTOR SUPERVISOR Unavailable [phone] Rebel Jin MD Primary Care Provider [phone] aNi Ramirez ELECTRICIAN CONSTRUCTOR SUPERVISOR Primary Care Provider [phone] Nai Ramirez ELECTRICIAN CONSTRUCTOR SUPERVISOR Primary Care Provider [phone] Nai Ramirez ELECTRICIAN CONSTRUCTOR SUPERVISOR Primary Care Provider [phone] Vinh Chicas MD Unavailable Encounter Details Date Type Department Care Team (Latest Contact Info) Description 01/10/2016 Orders Only [facility]G CLINCONV ProviderHailee MD [address] [place] [address] Social History Tobacco Use Types Packs/Day Years Used Date Smoking Tobacco: Former Sex and Gender Information Value Date Recorded Sex Assigned at Not on file Legal Sex Male 3:57 PM MATERIAL SCHEDULER Gender Identity Male 01/08/2020 9:10 AM CDT [...] COVID: Suspected 10/16/2022 10/16/2022 10/16/2022 4:55 PM MATERIAL SCHEDULER documented as of this encounter Care Teams Furnace Cleaner Relationship Specialty Start Date End Date Rebel Jin MD [facility] [place] [address] PCP - General 01/20/18 10/14/18 Nai Ramirez NP [address] [place] [address] [place] [address] PCP - General 10/15/18 04/27/19 Rahul Marshall MD [address] [place] [address] [place] [address] PCP - General 04/28/19 05/14/19 Rebel Jin MD [address] [place] [address] [place] [address] PCP - General Internal Medicine 05/15/19 10/06/19 Nai Ramirez NP [address] [place] [address] [place] [address] PCP - General 10/31/19 04/17/23 Nai Ramirez NP [address] [facility] [address] [place] [address] PCP - General 10/07/19 10/30/19 Nai Ramirez, ELECTRICIAN CONSTRUCTOR SUPERVISOR [address] [place] [address] PCP - General Internal Medicine 04/18/23 Vinh Chicas MD [address] [place] [address] PCP - Cardiology Cardiovascular Disease 06/03/23 Nai Ramirez, ELECTRICIAN CONSTRUCTOR SUPERVISOR [address] [facility] [place] [address] 04/28/19 documented as of this encounter
--- OUTSIDE RECORDS SUMMARY | 2024-10-24 08:28 | XMS_ITS | Continuity of Care Document ---
Author Organization [facility] Address [address] [place] [address] Phone Care Team Providers Care Scalp Treatment Specialist Name Role Phone Chris Caban PTA Unavailable Unavailable Procedures Procedure Date Work Conditioning Initial 2 hrs Jan-- 020 WORK COND/WORK HARD RE EVAL -2019 Work Conditioning Initial 2 hrs Jan-- 020 Work Conditioning add 1 hr -2019 Work Conditioning Initial 2 hrs Jan--2 020 Work Conditioning add 1 hr -2019 Work Conditioning Initial 2 hrs Jan--2 020 Work Conditioning add 1 hr -2019 Work Conditioning Initial 2 hrs Vito--2 020 Work Conditioning add 1 hr -2019 Work Conditioning Initial 2 hrs Vito--2 020 Work Conditioning add 1 hr -2019 Work Conditioning Initial 2 hrs Vito-18-2 020 Work Conditioning add 1 hr Jan--2019 Work Conditioning Initial 2 hrs Vito-15-2 020 Work Conditioning add 1 hr Jan-15-2019 Work Conditioning Initial 2 hrs Vito-12-2 020 Work Conditioning add 1 hr -2019 Work Conditioning Initial 2 hrs Vito-11-2 020 Work Conditioning add 1 hr Jan--2019 Work Conditioning add 1 hr -2019 Work Conditioning Initial 2 hrs Vito-10-2 020 Work Conditioning Initial 2 hrs Vito--2 020 Work Conditioning add 1 hr -2019 Work Conditioning Initial 2 hrs Vito--2 020 Work Conditioning add 1 hr -2019 Work Conditioning Initial 2 hrs December-- 020 Work Conditioning add 1 hr -2019 Work Conditioning Initial 2 hrs December-- 020 Work Conditioning add 1 hr -2019 Work Conditioning Initial 2 hrs - 020 Work Conditioning add 1 hr -2019 WORK COND/WORK HARD RE EVAL -2019 Work Conditioning Initial 2 hrs December--2 020 Work Conditioning add 1 hr -2019 Work Conditioning Initial 2 hrs Mar-20-2 020 Work Conditioning add 1 hr -2019 Work Conditioning Initial 2 hrs Mar-19-2 020 Work Conditioning add 1 hr -2019 Work Conditioning Initial 2 hrs Mar-18-2 020 Work Conditioning add 1 hr 18-2019 Work Conditioning Initial 2 hrs Mar-17-2 020 Work Conditioning add 1 hr Oct-17-2019 Work Conditioning Initial 2 hrs Mar-16-2 020 Work Conditioning add 1 hr Oct-16-2019 Work Conditioning Initial 2 hrs Mar-13-2 020 Work Conditioning add 1 hr Oct--2019 Work Conditioning Initial 2 hrs Mar-11-2 020 Work Conditioning add 1 hr Oct--2019 Work Conditioning Initial 2 hrs Mar-09-2 020 Work Conditioning add 1 hr Oct--2020 Work Conditioning Initial 2 hrs Mar-06-2 020 Work Conditioning add 1 hr -2019 Work Conditioning Initial 2 hrs Mar-05-2 020 Work Conditioning add 1 hr Oct--2020 Work Conditioning Initial 2 hrs Mar-04-2 020 Work Conditioning add 1 hr Oct--2020 Work Conditioning Initial 2 hrs Mar-03-2 020 Work Conditioning add 1 hr Oct--2019 Work Conditioning Initial 2 hrs Mar-02-2 020 Work Conditioning add 1 hr Oct--2019 Work Conditioning Initial 2 hrs Feb-27-2 020 Work Conditioning add 1 hr Fe--2020 Work Conditioning Initial 2 hrs Feb-26-2 020 Work Conditioning add 1 hr Fe-2020 Work Conditioning Initial 2 hrs Feb-24-2 020 Work Conditioning add 1 hr Fe-24-2020 Work Conditioning Initial 2 hrs Feb-21-2 020 Work Conditioning add 1 hr Fe--2020 Work Cond Initial Report -2019 Work Conditioning Initial 2 hrs Feb-20-2 020 Advance Directives Directive Yes / No Effective Date File Name No Information Encounters Encounter Description Practice Location Reason(s) For Visit Diagnoses Date Provider Providers Copied on Encounter [facility], [address] [facility], [place], [place], [id number], [place] tel:[phone] [facility] No Information Walker Chris. . Referring Provider: Balta Villaseñor [address], [place], [address]. tel:[phone], [place], [place], [address], [place] tel:[phone] [facility] No Information Walker Chris. . Referring Provider: Balta Villaseñor [address], [place], [address]. tel:[phone] [facility] [address], [place], [place], [address], [place] tel:[phone] [facility] No Information Walker Chris. . Referring Provider: Balta Villaseñor [address], [place], [address]. tel:[phone] [facility] [address], [place], [place], [address], [place] tel:[phone] [facility] No Information Walker Chris. . Referring Provider: Balta Villaseñor [address], [place], [address]. tel:[phone] [facility] [address], [place], [place], [address], [place] tel:[phone] [facility] No Information Walker Chris. . Referring Provider: Balta Villaseñor [address], [place], [address]. tel:[phone] [facility] [address], [place], [place], [address], [place] tel:[phone] [facility] No Information Walker Chris. . Referring Provider: Balta Villaseñor [address], [place], [address]. tel:[phone] [facility] [address], [place], [place], [address], [place] tel:[phone] [facility] No Information Walker Chris. . Referring Provider: Balta Villaseñor [address], [place], [address]. tel:[phone], [place], [place], [address], [place] tel:[phone] [facility] No Information Walker Chris. . Referring Provider: Balta Villaseñor [facility] [address], [place], [address]. tel:[phone], [place], [place], [address], [place] tel:[phone] [facility] No Information Walker Chris. . Referring Provider: aBlta Villaseñor [address], [place], [address]. tel:[phone], [place], [place], [address], [place] tel:[phone] [facility] No Information Walker Chris. . Referring Provider: Balta Villaseñor [address], [place], [address]. tel:[phone], [place], [place], [address], [place] tel:[phone] [facility] No Information Walker Chris. . Referring Provider: Balta Villaseñor [address], [place], [address]. tel:[phone] [facility] [address], [place], [place], [address], [place] tel:[phone] [facility] No Information Walker Chris. . Referring Provider: Balta Villaseñor [address], [place], [address]. tel:[phone] [address], [place], [address], [place] tel:[phone] [facility] No Information Walker Chris. . Referring Provider: Balta Villaseñor [address], [place], [address]. tel:[phone] [address], [place], [place], [address], tel:[phone] [facility] No Information Walker Chris. . Referring Provider: Balta Villaseñor [address], [place], [address]. tel:[phone] [facility] [address], [place], [place], [address], tel:[phone] [facility] No Information Walker Chris. . Referring Provider: Balta Villaseñor [address], [place], [address]. tel:[phone] [facility] [address], [place], [address], [place] tel:[phone] [facility] No Information Walker Chris. . Referring Provider: Balta Villaseñor [address], [place], [address]. tel:[phone] [facility] [address], [place], [place], [address], tel:[phone] [facility] No Information Walker Chris. . Referring Provider: Balta Villaseñor [address], [place], [address]. tel:[phone] [facility] [address] [place], [place] [address], [place], [place], [address], tel:[phone] [facility] No Information Walker Chris. . Referring Provider: Balta Villaseñor [address], [place], [address]. tel:[phone] [facility] [address] [place], [place] [address], [place], [address], [place] tel:[phone] [facility] No Information Stevo Hammonds. . Referring Provider: Balta Villaseñor [address], [place], [address]. tel:[phone] [facility] [address] [place], [place] [address], [place], [address], [place] tel:[phone] [facility] No Information Walker Chris. . Referring Provider: Balta Villaseñor [address], [place], [address]. tel:[phone] [facility] [address] [place], [place] [address], [place], [address], [place] tel:[phone] [facility] No Information Stevo Banuelosa. . Referring Provider: Balta Villaseñor [address], [place], [address]. tel:[phone] [facility] [address] [place], [place] [address], [place], [place], [address], [place] tel:[phone] [facility] No Information Walker Chris. . Referring Provider: Balta Villaseñor [address], [place], [address]. tel:[phone] [facility], [place], [place], [address], [place] tel:[phone] [facility] No Information Walker Chris. . Referring Provider: Balta Villaseñor [address], [place], [address]. tel:[phone] [facility] [address], [place], [address], [place] tel:[phone] [facility] No Information Walker Chris. . Referring Provider: Balta Villaseñor [address], [place], [address]. tel:[phone] [facility] [address], [place], [address], [place] tel:[phone] [facility] No Information Walker Chris. . Referring Provider: Balta Villaseñor [address], [place], [address]. tel:[phone] [facility] [address], [place], [address], [place] tel:[phone] [facility] No Information Walker Chris. . Referring Provider: Balta Villaseñor [address], [place], [address]. tel:[phone] [facility] [address], [place], [place], [address], [place] tel:[phone] [facility] No Information Walker Chris. . Referring Provider: Balta Villaseñor [address], [place], [address]. tel:[phone] [facility], [place], [place], [address], [place] tel:[phone] [facility] No Information Arsh Perez. . Referring Provider: Amy [address], [place], [address]. tel:[phone] [facility] [address], [place], [address], [place] tel:[phone] [facility] No Information Stevo Hammonds. . Referring Provider: Baltanestor Villaseñor [facility] [address], [place], [address]. tel:[phone] [facility] [address], [place], [address], [place] tel:[phone] [facility] No Information Stevo Hammonds. . Referring Provider: Baltanestor Villaseñor [facility] [address], [place], [address]. tel:[phone] [facility] [address], [place], [address], [place] tel:[phone] [facility] No Information Stevo Hammonds. . Referring Provider: Balta Villaseñor [address], [place], [address]. tel:[phone] [facility] [address], [place], [place], [address], [place] tel:[phone] [facility] No Information Arsh Perez. . Referring Provider: Balta Villaseñor, [address], [place], [address]. tel:[phone] [facility], [place], [place], [address], [place] tel:[phone] [facility] No Information Walker Chris. . Referring Provider: Balta Villaseñor, [address], [place], [address]. tel:[phone] [facility] [address], [place], [place], [address], tel:[phone] [facility] No Information Arsh Perez. . Referring Provider: Balta Villaseñor, [address], [place], [address]. tel:[phone] [facility] CenterTestifSaint [facility], [place], [place], [address], tel:[phone] [facility] No Information Stevo Rubio . Referring Provider: Balta Villaseñor, [address], [place], [address]. tel:[phone] Family History Family Member Type Diagnosis Age At Onset No Information Payers Payer name Insurance type Covered democrat ID Authorlizette browne(s) [facility] [id number] Social History Type Description Quantity Date Captured Comments Sex Male Smoking Status No Information Chief Complaint And Reason For Visit No Information Reason For Referral Reason For Referral No Information History Of Present Illness Encounter Date Complaint History Of Prese nt Illness No Information Functional Status Date Functional Assessmen t No Information Instructions Date Instruction Additional Infor mation No Information Assessments Type Assessment Date No Information Patient Care Teams Name Effective Dates (start - stop) Status Members No Information
--- OUTSIDE RECORDS SUMMARY | 2024-10-24 08:28 | XMS_ITS | Referral Summary ---
Author Organization [facility] Address [address] [place] [address] Care Team Providers Care Test Driller Name Role Phone Marlene Fox APRN-RECOVERY SPECIALIST Primary Care Provider Source Comments [facility],non-owned Affiliates and Associated Physician Practices is amultiple site organization consisting of ambulatory clinics and hospital sitesin [place], [place], [place] and [place]. This disclosure is being madepursuant to the Care Everywhere program and may not contain all information available regarding this patient. Last updated 18.[facility] Descomplica Allergies No known active allergies Medications * [...] on file Medical Devices Implanted Type Area Stroke Program Coordinator Device Identifier Shelf Expiration Date Model / Serial / Lot Plate 5 Hl Fib Lt Dist Lat 99mm Contr Implanted:Qty: 1 on 03/04/2023 by Lyndsey Craig MD at [facility] Left: Ankle Synthes [employer] [id number] / / Screw 3.5mm 6mm 22mm 2.5mm Ft Slf-Tap Implanted:Qty: 1 on 03/04/2023 by Lyndsey Craig MD at [facility] Left: Ankle [employer]ynthes [employer] 204.822 / / Screw 2.7mm 2.1mm 20mm T8 Slf-Tap Lck Implanted:Qty: 2 on 03/04/2023 by Lyndsey Craig MD at [facility] Left: Ankle Synthes [employer] 202.220 / / Screw 2.7mm 2.1mm 24mm T8 Slf-Tap Lck Implanted:Qty: 2 on 03/04/2023 by Lyndsey Craig MD at [facility] Left: Ankle Synthes [employer] 202.224 / / Screw 3.5mm 6mm 18mm Ft [place] Slf-Tap Sm Implanted:Qty: 1 on 03/04/2023 by Lyndsey Craig MD at [facility] Left: Ankle Synthes [employer] 204.818 / / Explanted Type Area Stroke Program Coordinator Device Identifier Shelf Expiration Date Model / Serial / Lot Screw 2.7mm 5mm 26mm T8 Slf-Tap Strdr Explanted:Qty: 1 on 03/04/2023 by Lyndsey Craig MD at [facility] Left: Ankle Synthes [employer] 202.886 / / Screw 2.7mm 2.1mm 24mm T8 Slf-Tap Lck Explanted:Qty: 1 on 03/04/2023 by Lyndsey Craig MD at [facility] Left: Ankle Synthes [employer] 202.224 / / Care Teams Test Driller Relationship Specialty Start Date End Date Marlene Fox, BALL POINTS INSPECTOR-RECOVERY SPECIALIST [address] [place] [address] PCP - General 06/18/16
--- OUTSIDE RECORDS SUMMARY | 2024-10-24 08:28 | XMS_ITS | Encounter Summary ---
Author Organization [facility] Facility Care Team Providers Care Cap Maker Name Role Phone Rebel Jin MD Primary Care Provider [phone] Nai Ramirez SURVEY CAD TECHNICIAN Primary Care Provider [phone] Rahul Marshall MD Primary Care Provider [phone] Nai Ramirez SURVEY CAD TECHNICIAN Unavailable [phone] Rebel Jin MD Primary Care Provider [phone] Nai Ramirez SURVEY CAD TECHNICIAN Primary Care Provider [phone] Nai Ramirez SURVEY CAD TECHNICIAN Primary Care Provider [phone] Nai Ramirez SURVEY CAD TECHNICIAN Primary Care Provider [phone] Vinh Chicas MD Unavailable Encounter Details Date Type Department Care Team (Latest Contact Info) Description 10/09/2016 Orders Only [facility] CLINCONV ProviderHailee MD [address] [place] [address] Social History Tobacco Use Types Packs/Day Years Used Date Smoking Tobacco: Former Sex and Gender Information Value Date Recorded Sex Assigned at Not on file Legal Sex Male 3:57 PM 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 [place] [address] PCP - General 04/28/19 05/14/19 Rebel Jin MD [address] [place] [address] PCP - General Internal Medicine 05/15/19 10/06/19 Nai Ramirez NP [address] [place] [address] PCP - General 10/31/19 04/17/23 Nai Ramirez SURVEY CAD TECHNICIAN [address] [place] [address] PCP - General 10/07/19 10/30/19 Nai Ramirez NP [address] [place] [address] PCP - General Internal Medicine 04/18/23 Vinh Chicas MD [address] [place], [place] [id number] PCP - Cardiology Cardiovascular Disease 06/03/23 Nai Ramirez, CHRIS [address] [place] [address] 04/28/19 documented as of this encounter
--- OUTSIDE RECORDS SUMMARY | 2024-10-24 08:28 | XMS_ITS | Encounter Summary ---
Author Organization [facility] Care Team Providers Care Laserist Name Role Phone Rebel Jin MD Primary Care Provider [phone] Nai Ramirez PRINCIPAL ELECTRICAL ENGINEER Primary Care Provider [phone] Rahul Marshall MD Primary Care Provider [phone] Nai Ramirez PRINCIPAL ELECTRICAL ENGINEER Unavailable [phone] Rebel Jin MD Primary Care Provider [phone] Nai Ramirez PRINCIPAL ELECTRICAL ENGINEER Primary Care Provider [phone] Nai Ramirez PRINCIPAL ELECTRICAL ENGINEER Primary Care Provider [phone] Nai Ramirez PRINCIPAL ELECTRICAL ENGINEER Primary Care Provider [phone] Vinh Chicas MD Unavailable Encounter Details Date Type Department Care Team (Latest Contact Info) Description 01/14/2018 Orders Only [facility] CLINCONV ProviderHailee MD [address] [place] [address] Social History Tobacco Use Types Packs/Day Years Used Date Smoking Tobacco: Former Sex and Gender Information Value Date Recorded Sex Assigned at Not on file Legal Sex Male 3:57 PM LIGHTHOUSE KEEPER Gender Identity Male 01/08/2020 9:10 AM [...] COVID: Suspected 10/16/2022 10/16/2022 10/16/2022 4:55 PM LIGHTHOUSE KEEPER documented as of this encounter Care Teams Laserist Relationship Specialty Start Date End Date Rebel Jin MD [facility] [facility] [place] [address] PCP - General 01/20/18 10/14/18 Nai Ramirez, PRINCIPAL ELECTRICAL ENGINEER [address] [place] [address] [place] [address] PCP - General 10/15/18 04/27/19 Rahul Marshall MD [facility] [facility] [place] [address] PCP - General 04/28/19 05/14/19 Rebel Jin MD [address] [place] [address] [place] [address] PCP - General Internal Medicine 05/15/19 10/06/19 Nai Ramirez NP [address] [place] [address] [place] [address] PCP - General 10/31/19 04/17/23 Nai Ramirez NP [address] [place] [address] PCP - General 10/07/19 10/30/19 Nai Ramirez, PRINCIPAL ELECTRICAL ENGINEER [address] [place] [address] PCP - General Internal Medicine 04/18/23 Vinh Chicas MD [address] [place] [address] PCP - Cardiology Cardiovascular Disease 06/03/23 Nai Ramirez, PRINCIPAL ELECTRICAL ENGINEER [address] [place] [address] 04/28/19 documented as of this encounter
--- OUTSIDE RECORDS SUMMARY | 2024-10-24 08:29 | XMS_ITS | Referral Summary ---
Author Organization [address] Address Formerly [facility] [place] [address] Care Team Providers Care Review Scheduling Coordinator Name Role Phone Nai Ramirez FASHION MODEL Unavailable [phone] Nai Ramirez FASHION MODEL Primary Care Provider [phone] Vinh Chicas MD Unavailable Encounters Date Type Department Care Team Description 10/23/2024 Nurse Triage [facility] Medical [facility] Internal Medicine at [address] [place] [phone] Nai Ramirez NP 10/14/2024 Telephone [facility] Internal Medicine at [address] [place] [address] Nai Ramirez NP Symptom Based Call 10/12/2024 3:00 PM POWER CLEANER OPERATOR Office Visit [facility] Medical [facility] Internal Medicine at [address] [place] [address] Nai Ramirez NP Physical exam, annual (Primary Dx); Chronic migraine without aura without status migrainosus, not intractable; BMI 23.0-23.9, adult; Primary insomnia 10/02/2024 Orders Only [facility] Health Information Management [address] [place] [address] Scanning, Provider 10/01/2024 Nurse Triage [facility] Internal Medicine at [place] [address] [place] [address] Rd [address] [place] [address] Dominga Wolfe, DARIN 10/01/2024 Nurse Triage [facility] Internal Medicine at [address] [place] [address] Nai Ramirez NP 09/23/2024 3:00 PM POWER CLEANER OPERATOR Office Visit [facility] at [address] [address] Deirdre Clark NP Generalized headache (Primary Dx); Dizziness 09/22/2024 Nurse Triage [facility] Internal Medicine at [address] [place] [address] Nai Ramirez NP 09/03/2024 Telephone [facility] Internal Medicine at [address] [place] [address] Nai Ramirez NP Med Refill 08/25/2024 8:30 AM POWER CLEANER OPERATOR Office Visit [facility] Internal Medicine at [address] [place] [address] Nai Ramirez NP Acute recurrent maxillary sinusitis (Primary Dx); BMI 23.0-23.9, adult; Drug-induced erectile dysfunction from Last 3 Months Allergies No known active allergies Medications cyclobenzaprine (FLEXERIL) 10 mg tablet Take 1 tablet (10 mg total) by mouth 2 (two) times a day as needed for muscle spasms 20 tablet 12/13/19 22 Active aspirin 81 mg chewable tablet Take 1 tablet (81 mg total) by mouth daily 30 tablet 03/21/20 23 Active ipratropium-albu teroL (Combivent Respimat) 20-100 mcg/actuation inhalerIndicatio ns:Chronic obstructive pulmonary disease, unspecified COPD type (HCC) INHALE 1 PUFF BY MOUTH 4 TIMES A DAY 4 g 3 04/10/20 23 Active buPROPion XL (WELLBUTRIN XL) 300 mg 24 hr tabletIndication s:Mild episode of recurrent major depressive disorder (HCC) Take 1 tablet (300 mg total) by mouth every morning 90 tablet 1 06/17/[address] (PROTONIX) 40 mg EC tablet Take 1 tablet (40 mg total) by mouth 2 (two) times a day 60 tablet 3 02/17/20 24 Active acyclovir (ZOVIRAX) 800 mg tabletIndication s:Herpes zoster without complication TAKE 1 TABLET BY MOUTH 5 TIMES A DAY FOR 7 DAYS. 35 tablet 03/16/20 24 Active QUEtiapine (SEROquel) 50 mg tabletIndication s:Primary insomnia TAKE 1 TABLET BY MOUTH EVERY DAY AT NIGHT 90 tablet 1 06/01/20 24 Active sertraline (ZOLOFT) 100 mg tabletIndication s:Anxiety Take 1 tablet (100 mg total) by mouth daily 90 tablet 1 09/03/19 25 026 Active atorvastatin (LIPITOR) 10 mg tablet TAKE 1 TABLET BY MOUTH EVERY DAY 90 tablet 09/17/19 25 Active megestroL (MEGACE) 20 mg tablet Take 1 tablet (20 mg total) by mouth daily 08/20/20 24 Active meclizine (ANTIVERT) 25 mg tabletIndication s:Dizziness Take 1 tablet (25 mg total) by mouth 3 (three) times a day as needed for dizziness 30 tablet 09/23/19 25 Active atogepant (Qulipta) 60 mg tabletIndication s:Chronic migraine without aura without status migrainosus, not intractable Take 1 tablet by mouth daily 30 tablet 3 10/12/19 25 Active ALPRAZolam (XANAX) 2 mg tabletIndication s:Primary insomnia Take 1 tablet (2 mg total) by mouth nightly as needed for anxiety 90 tablet 1 10/13/19 25 Active cyclobenzaprine (FLEXERIL) 10 mg tablet Take 1 tablet (10 mg total) by mouth 3 (three) times a day as needed for muscle spasms 30 tablet 10/14/19 25 025 Active varenicline tartrate (CHANTIX) 1 mg tablet TAKE 1 TABLET (1 MG TOTAL) BY MOUTH 2 (TWO) TIMES A DAY. TAKE WITH FULL GLASS OF WATER. 180 tablet 1 08/05/20 24 025 Discontinu ed(Therapy completed) sildenafiL (VIAGRA) 100 mg tabletIndication s:Drug-induced erectile dysfunction Take 1 tablet (100 mg total) by mouth as needed for erectile dysfunction 12 tablet 3 08/25/20 24 025 ALPRAZolam (XANAX) 1 mg tablet TAKE 1 TABLET BY MOUTH EVERY DAY AT BEDTIME NEEDED FOR ANXIETY 06/21/20 24 025 Discontinu ed(Reorder ) Active Problems Problem Noted Date Diagnosed Date Chronic migraine without aur a without status migrainosus, not intractable 10/12/2024 Assessment & Plan (10/13/2024 7:48 AM POWER CLEANER OPERATOR): This is a significant, separately identifiable problem that was evaluated and managed on the same day as the wellness exam Drug-induced erectile dysfunction 08/27/2024 Overview (08/27/2024): Start [...] risk of continued smoking. Neck pain 04/05/2020 Physical exam, annual 12/10/2019 Epigastric pain 08/11/2019 Secondary adhesive capsulitis [...] release Assessment & Plan (07/20/2019 3:48 PM POWER CLEANER OPERATOR): Marked improvement in range of motion. Marked improvement in pain. However, developed muscle spasms. Anxious to get back to normal activities. Wants to continue physical therapy for strengthening. Assessment & Plan (07/06/2019 8:44 AM POWER CLEANER OPERATOR): Patient has failed nonsteroidal anti-inflammatories and formal [...] restriction. Assessment & Plan (10/14/2019 10:05 AM POWER CLEANER OPERATOR): Begin work hardening strength training. Follow up in 6 weeks. Assessment & Plan (08/31/2019 1:28 PM POWER CLEANER OPERATOR): Formal physical therapy with strengthening for 6 more weeks. Patient will follow up in 6 weeks. Assessment & Plan (07/20/2019 3:48 PM POWER CLEANER OPERATOR): Formal physical therapy with strengthening Assessment & Plan (07/06/2019 8:44 AM POWER CLEANER OPERATOR): Not making progress with formal physical therapy [...] 05/17/2017 Assessment & Plan (07/06/2020 1:32 PM POWER CLEANER OPERATOR): The patient was giving a different style [...] however he was unsure of what his [employer] company was. The patient also is educated [...] Date BMI 27.0-27.9,adult 08/11/2019 01/18/20 23 Immunizations Immunization Administration Dates Next Due Influenza, Quadrivalent, Spl it, Preservative Free, Intramuscular 05/30/2023,07/18/2022,07/04/2021,06/10,05/24/2019 Influenza, Trivalent, High D ose, Split, Preservative Free, Intramuscular 06/05/2024 Pneumococcal Conjugate Pcv20 08/25/2024 Tdap 02/22/2023 Social History Tobacco Use Types Packs/Day Years Used Date Smoking Tobacco: Former Cigarettes 0.5 40.9 S tarted: 04/24/2020 Smokeless Tobacco: Never Tobacco [...] How often do you attend chur or lutheran services? Never 03/18/2023 Do you belong to any clubs o r organizations such as hinduism groups, unions, fraternal or athletic groups, or [...] you are drinking? Patient does not drink 3 Q3: How often do you have si [...] points, staff should administer the PHQ-9) 0 10/12/2024 Hunger Vital Sign Answer Date Recorded Within [...] on file Legal Sex Male 3:57 PM POWER CLEANER OPERATOR Gender Identity Male 01/08/2020 9:10 AM CDT Sexual Orientation Straight 01/08/2020 9: 10 AM CDT Last Filed Vital Signs Vital Sign Reading Time Taken Comments Blood Pressure 138/78 10/12/2024 2:50 PM POWER CLEANER OPERATOR Pulse 66 10/12/2024 2:50 PM POWER CLEANER OPERATOR Temperature 36.6 C (97.8 F) 10/12/2024 2:50 PM POWER CLEANER OPERATOR Respiratory Rate 14 09/23/2024 3:06 PM POWER CLEANER OPERATOR Oxygen Saturation 97% 10/12/2024 2:50 PM POWER CLEANER OPERATOR Inhaled Oxygen Concentration - - Weight 89.4 kg (197 lb) 10/12/2024 2:50 PM POWER CLEANER OPERATOR Height 193 cm (6' 4 ) 10/12/2024 2:50 PM POWER CLEANER OPERATOR Body Mass Index 23.98 10/12/2024 2:50 PM POWER CLEANER OPERATOR Plan of Treatment Not on file Medical Devices Implanted Type Area Crimp Setter Device Identifier Shelf Expiration Date Model / Serial / Lot [id number] Cage Back Pins And Plate Left: Wrist Plate Left: Ankle Procedures Procedure Name Priority Date/Time Associated Diagnosis Comments SCAN - RADIOLOGY/IMAGING 10/02/2024 PSA SCREEN Routine 04/20/2024 3:44 PM CDT Screening for prostate cancer CT ABDOMEN PELVIS WO CONTRAST ED 03/17/2023 10:34 PM CDT HEPATITIS C ANTIBODY Routine 12/22/2019 12:28 PM CDT HM COLONOSCOPY Routine 01/14/2018 from Last 3 Months or Most Recently Relevant to Health Maintenance Results * SCAN - RADIOLOGY/IMAGING (10/02/2024) Anatomical Region Laterality Modality Other us Provider Scanning Final Result * PSA screen (04/20/2024 3:44 PM CDT) PSA-Total 0.83 <=5.40 ng/mL Comment: Interpretive Data AGE SEX REFERENCE INTERVAL 0 minutes-150 years Female None 0 minutes-49 years Male None 50-59 years Male 0-3.90 60-69 years Male 0-5.40 70-79 years Male 0-6.20 80-150 years Male 0-6.20 The Maria Dolores PSA Total assay procedure was used. Results from different manufacturers or methods may not be comparable. Serial testing should be performed using the same method. Current interpretive data last revised 22. Testing performed by: [facility], [address] [place] [address], [place]., [address] Blood 04/20/2024 3:44 PM CDT 04/20/2024 4:36 PM CDT us Nai Ramirez FASHION MODEL LAB BLOOD ORDERABLES Final Re sult [facility] [address] [facility] Department [place] [address] * CT Abdomen Pelvis WO Contrast (03/17/2023 10:34 PM CDT) Anatomical Region Laterality Modality Body N/A Computed Tomogra phy 03/17/2023 10:5 1 PM CDT Narrative 03/17/2023 11:09 PM CDT EXAM DESCRIPTION: CT ABDOMEN PELVIS WO CONTRAST REASON FOR STUDY: Abdominal pain, acute, nonlocalized, constipation/ N/V ARF Pt to ED via EMS from home. Pt had ankle surgery on 03/04/23 (left ankle). Pt states he hasn't been able to have a BM since surgery. Pt states that a couple days ago he began having nausea and intense pain in the left ankle. Pt left ankle is wrapped and hasn't been unwrapped since he had the bandage put on 03/04/23 TECHNIQUE: CT scan of the abdomen and pelvis performed without intravenous and without oral contrast using helical scanning technique. [...] diminished without the use of intravenous contrast. Study is limited secondary to lack of visceral [...] KIDNEYS/URINARY TRACT: There is severe perinephric stranding surrounding the kidneys bilaterally, greater on the right than the left. There is mild left hydronephrosis and hydroureter to the mid left ureter beyond which the ureter is not definitively identified. There is moderate right hydronephrosis with abnormal high density within the right collecting system and layering posteriorly within the dilated renal pelvis, suggestive of hemorrhage. The right ureter is not clearly identified. A Cooper catheter is seen in place within the bladder. VASCULATURE: There is moderate to severe atherosclerosis of the aorta and its pelvic branches. GI: The stomach appears normal. The small bowel is not well evaluated, however, there are no gross dilated loops. There is extensive diverticulosis of the sigmoid colon. There is collapsed versus thickening of the ascending and transverse colon. The appendix [...] MUSCULOSKELETAL: Multilevel degenerative changes are present in the spine. No acute abnormality is seen. Disc fusion hardware is seen at the lumbosacral junction. There is diffuse anasarca throughout the abdominal and pelvic wall and extending into the lower extremities bilaterally. The patient has loss of the majority of [...] by Joanne Flor M.D. SN: Report ID: [id number] Reading Location: [id number] Procedure Note Joanne Flor MD - 03/17/2023 [...] by Joanne Flor M.D. SN: Report ID: [id number] Reading Location: [place] [address] Dale Kulkarni DO IMG CT PROCEDURES Final Result * Hepatitis C antibody (12/22/2019 12:28 PM CDT) [facility] Hep C Ab NONREACT NONREACTIVE [facility] Comment: Siemens ZoopaurXP using DON (chemiluminescent immunoassay) technology. NONREACTIVE: Antibodies to Hepatitis C not detected. This does not exclude early acute Hepatitis C infection, possibility of exposure to Hepatitis C, antibodies below detection limit, or to lack of antibody reactivity to the antigen used in this assay. EQUIVOCAL: Antibodies to Hepatitis C may or may not be present. Sample to be confirmed by real-time PCR method. REACTIVE: Antibodies to Hepatitis C detected.Sample to be confirmed by real-time PCR method. 12/22/2019 12:2 8 PM CDT 12/22/2019 12:48 PM CDT Narrative Resulting Agency Comment CLI Nai Ramirez NP LAB MICROBIOLOGY - GENERAL OR DERABLES Final Result [address] [phone] * COLONOSCOPY (01/14/2018) [facility] Colonoscopy Abnormal Comment:Dr. Cordova Historical Provider HEALTH MAINTENANCE Final Result from Last 3 Months or Most Recently Relevant to Health Maintenance Insurance [address] [place] [id number] MEDICARE MEDICARE SOLUTIONS [facility] [address] [place] [id number] MEDICARE SOLUTIONS BLUE ACCESS OOS CLAIMS MANAGEMENT [facility] Advance Directives For more information, please contact: [phone] * Full Code (Latest Code Status on File) Date Activated Date Inactivated Comments 08/08/2023 3:15 PM 08/08/2023 8:39 PM * Full Code Date Activated Date Inactivated Comments 07/01/2023 11:54 AM 07/02/2023 6:55 PM * Full Code Date Activated Date Inactivated Comments 03/19/2023 10:34 AM 03/21/2023 7:04 PM Care Teams Review Scheduling Coordinator Relationship Specialty Start Date End Date Nai Ramirez NP [address] [place] [address] PCP - General Internal Medicine 04/18/23 Vinh Chicas MD [address] [place] [address] PCP - Cardiology Cardiovascular Disease 06/03/23 Nai Ramirez NP 04/28/19
--- OUTSIDE RECORDS SUMMARY | 2024-10-24 08:29 | XMS_ITS | Encounter Summary ---
Author Organization [facility] Facility Care Team Providers Care Decorator Street And Building Name Role Phone Rebel Jin MD Primary Care Provider [phone] Nai Ramirez DOCTOR OF PODIATRIC MEDICINE Primary Care Provider [phone] Rahul Marshall MD Primary Care Provider [phone] Nai Ramirez DOCTOR OF PODIATRIC MEDICINE Unavailable [phone] Rebel iJn MD Primary Care Provider [phone] Nai Ramirez DOCTOR OF PODIATRIC MEDICINE Primary Care Provider [phone] Nai Ramirez DOCTOR OF PODIATRIC MEDICINE Primary Care Provider [phone] Nai Ramirez DOCTOR OF PODIATRIC MEDICINE Primary Care Provider [phone] Vinh Chicas MD Unavailable Encounter Details Date Type Department Care Team (Latest Contact Info) Description 04/16/2018 Orders Only [facility] CLINCONV ProviderHailee MD [address] [place] [address] Social History Tobacco Use Types Packs/Day Years Used Date Smoking Tobacco: Former Sex and Gender Information Value Date Recorded Sex Assigned at Not on file Legal Sex Male 3:57 PM FORMING MACHINE TENDER Gender Identity Male 01/08/2020 9:10 AM CDT [...] COVID: Suspected 10/16/2022 10/16/2022 10/16/2022 4:55 PM FORMING MACHINE TENDER documented as of this encounter Care Teams Decorator Street And Building Relationship Specialty Start Date End Date Rebel Jin MD [facility] [place] [address] PCP - General 01/20/18 10/14/18 Nai Ramirez NP [address] [place] [address] [place] [address] PCP - General 10/15/18 04/27/19 Rahul Marshall MD [address] [place] [address] [place] [address] PCP - General 04/28/19 05/14/19 Rebel Jin MD [address] [place] [address] [place] [address] PCP - General Internal Medicine 05/15/19 10/06/19 Nai Ramirez NP [address] [place] [address] [place] [address] PCP - General 10/31/19 04/17/23 Nai Ramirez NP [address] [facility] [address] [place] [address] PCP - General 10/07/19 10/30/19 Nai Ramirez, DOCTOR OF PODIATRIC MEDICINE [address] [place] [address] PCP - General Internal Medicine 04/18/23 Vinh Chicas MD [address] [place] [address] PCP - Cardiology Cardiovascular Disease 06/03/23 Nai Ramirez, DOCTOR OF PODIATRIC MEDICINE [address] [facility] [place] [address] 04/28/19 documented as of this encounter
--- OUTSIDE RECORDS SUMMARY | 2024-10-24 08:29 | XMS_ITS | Encounter Summary ---
Author Organization [facility] Facility Care Team Providers Care Rod Puller Name Role Phone Rebel Jin MD Primary Care Provider [phone] Nai Ramirez INSOLE TAPER Primary Care Provider [phone] Rahul Marshall MD Primary Care Provider [phone] Nai Ramirez INSOLE TAPER Unavailable [phone] Rebel Jin MD Primary Care Provider [phone] Nai Ramirez INSOLE TAPER Primary Care Provider [phone] Nai Ramirez INSOLE TAPER Primary Care Provider [phone] Nai Ramirez INSOLE TAPER Primary Care Provider [phone] Vinh Chicas MD Unavailable Encounter Details Date Type Department Care Team (Latest Contact Info) Description 05/20/2018 Orders Only [facility] CLINCONV ProviderHailee MD [address] [place] [address] Social History Tobacco Use Types Packs/Day Years Used Date Smoking Tobacco: Former Sex and Gender Information Value Date Recorded Sex Assigned at Not on file Legal Sex Male 3:57 PM HOCKEY PLAYER Gender Identity Male 01/08/2020 9:10 AM CDT [...] COVID: Suspected 10/16/2022 10/16/2022 10/16/2022 4:55 PM HOCKEY PLAYER documented as of this encounter Care Teams Rod Puller Relationship Specialty Start Date End Date Rebel Jin MD [facility] [place] [address] PCP - General 01/20/18 10/14/18 Nai Ramirez NP [address] [place] [address] [place] [address] PCP - General 10/15/18 04/27/19 Rahul Marshall MD [address] [place] [address] [place] [address] PCP - General 04/28/19 05/14/19 Rebel Jin MD [address] [place] [address] [place] [address] PCP - General Internal Medicine 05/15/19 10/06/19 Nai Ramirez NP [address] [place] [address] [place] [address] PCP - General 10/31/19 04/17/23 Nai Ramirez NP [address] [facility] [address] [place] [address] PCP - General 10/07/19 10/30/19 Nai Ramirez, INSOLE TAPER [address] [place] [address] PCP - General Internal Medicine 04/18/23 Vinh Chicas MD [address] [place] [address] PCP - Cardiology Cardiovascular Disease 06/03/23 Nai Ramirez, INSOLE TAPER [address] [facility] [place] [address] 04/28/19 documented as of this encounter
--- OUTSIDE RECORDS SUMMARY | 2024-10-24 08:29 | XMS_ITS | Encounter Summary ---
Author Organization [facility] Facility Care Team Providers Care Spray Mixer Name Role Phone Rebel Jin MD Primary Care Provider [phone] Nai Ramirez MICROBIOLOGY LAB ASSISTANT Primary Care Provider [phone] Rahul Marshall MD Primary Care Provider [phone] Nai Ramirez MICROBIOLOGY LAB ASSISTANT Unavailable [phone] Rebel Jin MD Primary Care Provider [phone] Nai Ramirez MICROBIOLOGY LAB ASSISTANT Primary Care Provider [phone] Nai Ramirez MICROBIOLOGY LAB ASSISTANT Primary Care Provider [phone] Nai Ramirez MICROBIOLOGY LAB ASSISTANT Primary Care Provider [phone] Vinh Chicas MD Unavailable Encounter Details Date Type Department Care Team (Latest Contact Info) Description 06/23/2018 Orders Only [facility] CLINCONV ProviderHailee MD [address] [place] [address] Social History Tobacco Use Types Packs/Day Years Used Date Smoking Tobacco: Former Sex and Gender Information Value Date Recorded Sex Assigned at Not on file Legal Sex Male 3:57 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 Gender Identity Male 01/08/2020 9:10 AM CDT [...] COVID: Suspected 10/16/2022 10/16/2022 10/16/2022 4:55 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 documented as of this encounter Care Teams Spray Mixer Relationship Specialty Start Date End Date Rebel Jin MD [address] [facility] [place] [address] PCP - General 01/20/18 10/14/18 Nai Ramirez, CHRIS [address] [place] [address] [place] [address] PCP - General 10/15/18 04/27/19 Rahul Marshall MD [address] [facility] [place] [address] PCP - General 04/28/19 05/14/19 Rebel Jin MD [address] [facility] [place] [address] PCP - General Internal Medicine 05/15/19 10/06/19 Nai Ramirez NP [address] [place] [address] [place] [address] PCP - General 10/31/19 04/17/23 Nai Ramirez NP [address] [facility] [address] [place] [address] [place] [address] PCP - General 10/07/19 10/30/19 Nai Ramirez, CHRIS [address] [place] [address] PCP - General Internal Medicine 04/18/23 Vinh Chicas MD [address] [place] [address] PCP - Cardiology Cardiovascular Disease 06/03/23 Nai Ramirez, CHRIS [address] [facility] [place] [address] 04/28/19 documented as of this encounter
--- OUTSIDE RECORDS SUMMARY | 2024-10-24 08:29 | XMS_ITS | Encounter Summary ---
Author Organization [facility] Facility Care Team Providers Care Tea Bag Packer Name Role Phone Rebel Jin MD Primary Care Provider [phone] Nai Ramirez WATERPROOFING SUPERVISOR Primary Care Provider [phone] Rahul Marshall MD Primary Care Provider [phone] Nai Ramirez WATERPROOFING SUPERVISOR Unavailable [phone] Rebel Jin MD Primary Care Provider [phone] Nai Ramirez WATERPROOFING SUPERVISOR Primary Care Provider [phone] Nai Ramirez WATERPROOFING SUPERVISOR Primary Care Provider [phone] Nai Ramirez WATERPROOFING SUPERVISOR Primary Care Provider [phone] Vinh Chicas MD Unavailable Encounter Details Date Type Department Care Team (Latest Contact Info) Description 05/27/2018 Orders Only [facility] CLINCONV ProviderHailee MD [address] [place] [address] Social History Tobacco Use Types Packs/Day Years Used Date Smoking Tobacco: Former Sex and Gender Information Value Date Recorded Sex Assigned at Not on file Legal Sex Male 3:57 PM XEROX MACHINE ASSEMBLER Gender Identity Male 01/08/2020 9:10 AM CDT [...] COVID: Suspected 10/16/2022 10/16/2022 10/16/2022 4:55 PM XEROX MACHINE ASSEMBLER documented as of this encounter Care Teams Tea Bag Packer Relationship Specialty Start Date End Date Rebel Jin MD [address] [facility] [place] [address] PCP - General 01/20/18 10/14/18 Nai Ramirez, WATERPROOFING SUPERVISOR [address] [place] [address] [place] [address] PCP - General 10/15/18 04/27/19 Rahul Marshall MD [facility] [facility] [place] [address] PCP - General 04/28/19 05/14/19 Rebel Jin MD [address] [place] [address] [place] [address] PCP - General Internal Medicine 05/15/19 10/06/19 Nai Ramirez NP [address] [place] [address] [place] [address] PCP - General 10/31/19 04/17/23 Nai Ramirez NP [address] [facility] [address] [place] [address] PCP - General 10/07/19 10/30/19 Nai Ramirez, WATERPROOFING SUPERVISOR [address] [place] [address] PCP - General Internal Medicine 04/18/23 Vinh Chicas MD [address] [place] [address] PCP - Cardiology Cardiovascular Disease 06/03/23 Nai Ramirez, WATERPROOFING SUPERVISOR [address] [facility] [place] [address] 04/28/19 documented as of this encounter
--- OUTSIDE RECORDS SUMMARY | 2024-10-24 08:29 | XMS_ITS | Encounter Summary ---
Author Organization [facility] Facility Care Team Providers Care Assistant Boys Track Coach Name Role Phone Rebel Jin MD Primary Care Provider [phone] Nai Ramirez LIVESTOCK EXHIBITOR Primary Care Provider [phone] Rahul Marshall MD Primary Care Provider [phone] Nai Ramirez LIVESTOCK EXHIBITOR Unavailable [phone] Rebel Jin MD Primary Care Provider [phone] Nai Ramirez LIVESTOCK EXHIBITOR Primary Care Provider [phone] Nai Ramirez LIVESTOCK EXHIBITOR Primary Care Provider [phone] Nai Ramirez LIVESTOCK EXHIBITOR Primary Care Provider [phone] Vinh Chicas MD Unavailable Encounter Details Date Type Department Care Team (Latest Contact Info) Description 05/08/2018 Orders Only [facility] CLINCONV ProviderHailee MD [address] [place] [address] Social History Tobacco Use Types Packs/Day Years Used Date Smoking Tobacco: Former Sex and Gender Information Value Date Recorded Sex Assigned at Not on file Legal Sex Male 3:57 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 Gender Identity Male 01/08/2020 9:10 AM CDT [...] COVID: Suspected 10/16/2022 10/16/2022 10/16/2022 4:55 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 documented as of this encounter Care Teams Assistant Boys Track Coach Relationship Specialty Start Date End Date Rebel Jin MD [facility] [facility] [place] [address] PCP - General 01/20/18 10/14/18 Nai Ramirez NP [address] [place] [address] [place] [address] PCP - General 10/15/18 04/27/19 Rahul Marshall MD [address] [place] [address] [place] [address] PCP - General 04/28/19 05/14/19 Rebel Jin MD [address] [place] [address] [place] [address] PCP - General Internal Medicine 05/15/19 10/06/19 Nai Ramirez NP [address] [place] [address] [place] [address] PCP - General 10/31/19 04/17/23 Nai Ramirez NP [address] [facility] [address] [place] [address] [place] [address] PCP - General 10/07/19 10/30/19 Nai Ramirez, LIVESTOCK EXHIBITOR [address] [place] [address] PCP - General Internal Medicine 04/18/23 Vinh Chicas MD [address] [place] [address] PCP - Cardiology Cardiovascular Disease 06/03/23 Nai Ramirez, LIVESTOCK EXHIBITOR [address] [facility] [place] [address] 04/28/19 documented as of this encounter
--- OUTSIDE RECORDS SUMMARY | 2024-10-24 08:29 | XMS_ITS | Clinical Summary ---
Author Organization [place] [address] [facility] Address [facility] [place] [address] Care Team Providers Care Animal Rescuer Name Role Phone Nai Ramirez NP Unavailable [phone] Nai Ramirez NP Primary Care Provider [phone] Vinh Chicas MD Unavailable Allergies No known [...] EVERY DAY AT BEDTIME NEEDED FOR ANXIETY 10/20 025 Discontinu ed(Reorder ) Active Problems Problem Noted Date Diagnosed Date Chronic migraine without aur a without status migrainosus, not intractable 10/12/2024 Assessment & Plan (10/13/2024 7:48 AM CLINICAL APPLICATION MANAGER): This is a significant, separately identifiable problem [...] release Assessment & Plan (07/20/2019 3:48 PM CLINICAL APPLICATION MANAGER): Marked improvement in range of motion. Marked improvement in pain. However, developed muscle spasms. Anxious to get back to normal activities. Wants to continue physical therapy for strengthening. Assessment & Plan (07/06/2019 8:44 AM CLINICAL APPLICATION MANAGER): Patient has failed nonsteroidal anti-inflammatories and formal [...] restriction. Assessment & Plan (10/14/2019 10:05 AM CLINICAL APPLICATION MANAGER): Begin work hardening strength training. Follow up in 6 weeks. Assessment & Plan (08/31/2019 1:28 PM CLINICAL APPLICATION MANAGER): Formal physical therapy with strengthening for 6 more weeks. Patient will follow up in 6 weeks. Assessment & Plan (07/20/2019 3:48 PM CLINICAL APPLICATION MANAGER): Formal physical therapy with strengthening Assessment & Plan (07/06/2019 8:44 AM CLINICAL APPLICATION MANAGER): Not making progress with formal physical therapy [...] 05/17/2017 Assessment & Plan (07/06/2020 1:32 PM CLINICAL APPLICATION MANAGER): The patient was giving a different style [...] Department Care Team Description 10/23/2024 Nurse Triage [facility] Internal Medicine at [address] [place] [address] Nai Ramirez NP 10/14/2024 Telephone [facility] Internal Medicine at [address] [place] [phone] Nai Ramirez NP Symptom Based Call 10/12/2024 3:00 PM CLINICAL APPLICATION MANAGER Office Visit [facility] Internal Medicine at [address] [place] [phone] Nai Ramirez NP Physical exam, annual (Primary Dx); Chronic migraine without aura without status migrainosus, not intractable; BMI 23.0-23.9, adult; Primary insomnia 10/02/2024 Orders Only [facility] [place] Information Management [address] [place] [address] Scanning, Provider 10/01/2024 Nurse Triage [facility] Internal Medicine at [address] [place] [phone] Dominga Wolfe, DARIN 10/01/2024 Nurse Triage [facility] Internal Medicine at [address] [place] [phone] Nai Ramirez NP 09/23/2024 3:00 PM CLINICAL APPLICATION MANAGER Office Visit [facility] at [address] [address] Deirdre Clark NP Generalized headache (Primary Dx); Dizziness 09/22/2024 Nurse Triage [facility] Internal Medicine at [address] [place] [address] Nai Ramirez NP 09/03/2024 Telephone [facility] Internal Medicine at [place] [address] [place] [phone] Nai Ramirez NP Med Refill 08/25/2024 8:30 AM CLINICAL APPLICATION MANAGER Office Visit [facility] Internal Medicine at [place] [address] [place] [address] Nai Ramirez NP Acute recurrent maxillary sinusitis (Primary Dx); BMI 23.0-23.9, adult; Drug-induced erectile dysfunction from Last 3 Months Immunizations Immunization Administration Dates Next Due Influenza, [...] repaired Abnormal stress test 06/10/2023 High cholesterol [place], old 06/17/2023 patient states h e was told he had an old [place], he was not aware, not symptomatic Bilateral hydronephrosis noted i n physicians record Cooper catheter in place cath exc hange, new on 06/07/23-failed voiding trials Family History Medical [...] often do you attend chur ch or latter day services? Never 03/18/2023 Do you belong to any clubs o r organizations such as uatsdin groups, unions, fraternal or athletic groups, or [...] place to sleep or slept in a [place] health [place] facility (including now)? No 03/18/2023 Personal Safety Answer Date Recorded Have you ever been in or are you currently in a harmful physical or emotional relationship or is someone making you feel afraid or unsafe? Denies 08/08/2023 Sex and Gender Information Value Date Recorded Sex Assigned at Not on file Legal Sex Male 3:57 PM CLINICAL APPLICATION MANAGER Gender Identity Male 01/08/2020 9:10 AM CDT Sexual Orientation Straight 01/08/2020 9: 10 AM CDT Obstetrics History Last Filed Vital Signs Vital Sign Reading Time Taken Comments Blood Pressure 138/78 10/12/2024 2:50 PM CLINICAL APPLICATION MANAGER Pulse 66 10/12/2024 2:50 PM CLINICAL APPLICATION MANAGER Temperature 36.6 C (97.8 F) 10/12/2024 2:50 PM CLINICAL APPLICATION MANAGER Respiratory Rate 14 09/23/2024 3:06 PM CLINICAL APPLICATION MANAGER Oxygen Saturation 97% 10/12/2024 2:50 PM CLINICAL APPLICATION MANAGER Inhaled Oxygen Concentration - - Weight 89.4 kg (197 lb) 10/12/2024 2:50 PM CLINICAL APPLICATION MANAGER Height 193 cm (6' 4 ) 10/12/2024 2:50 PM CLINICAL APPLICATION MANAGER Body Mass Index 23.98 10/12/2024 2:50 PM CLINICAL APPLICATION MANAGER Plan of Treatment Health Maintenance Due Date Last Done Comments Hepatitis B Screening 1978 Zoster Vaccine (1 of 2) 1979 Covid-19 Vaccine (3 - Pfizer risk series) 01/08/2021 12/11/2020, 11/20/2020 Abdominal Aortic Aneurysm (A AA) Screen 2023 03/17/2023, 02/22/2023, 01/28/2018, Additional history exists Depression Screening 10/12/2025 10/12/2024, 08/25/2024, 07/10/2024, Additional history exists Fall Risk Assessment 10/12/2025 10/12/2024, 06/05/2024, 04/10/2024, Additional history exists Well Visit 65+ 10/12/2025 10/12/2024, 08/05/2024, 07/18/2022 Prostate Cancer Screening-PSA 04/20/2026, 02/05/2022, 06/14/2020, Additional [...] Completed 08/25/2024 Medical Devices Implanted Type Area Burr Grinder Device Identifier Shelf Expiration Date Model / [...] data last revised 22. Testing performed by: [facility], [address] [place] [address]., [id number] Blood 04/20/2024 3:44 PM CDT 04/20/2024 4:36 PM CDT Nai Ramirez SLOT FLOOR ATTENDANT LAB BLOOD ORDERABLES Final Re sult [facility] [address] [facility] Department [place] [address] * CT Abdomen Pelvis WO [...] by Joanne Flor M.D. SN: Report ID: [id number] Reading Location: [id number] Procedure Note Joanne Flor MD - 03/17/2023 [...] by Joanne Flor M.D. SN: Report ID: [id number] Reading Location: [place] [address] Dale Kulkarni DO IMG CT PROCEDURES Final Result * Hepatitis C antibody (12/22/2019 12:28 PM CDT) Hep C Ab NONREACT NONREACTIVE [facility] Comment: Siemens CentaurXP using DON (chemiluminescent immunoassay) technology. NONREACTIVE: Antibodies [...] Narrative Resulting Agency Comment CLI Nai Ramirez SLOT FLOOR ATTENDANT LAB MICROBIOLOGY - GENERAL OR DERABLES Final Result [address] [address], [facility] [phone] * COLONOSCOPY (01/14/2018) Colonoscopy Abnormal Comment:Dr. Cordova Historical Provider HEALTH MAINTENANCE Final Result from Last 3 Months or Most Recently Relevant to Health Maintenance Insurance MEDICARE MEDICARE SOLUTIONS [facility] MEDICARE SOLUTIONS [employer] MRA Advance Directives For more information, please contact: [phone] * Full Code (Latest Code Status on File) Date Activated Date Inactivated Comments 08/08/2023 3:15 PM 08/08/2023 8:39 PM * Full Code Date Activated Date Inactivated Comments 07/01/2023 11:54 AM 07/02/2023 6:55 PM * Full Code Date Activated Date Inactivated Comments 03/19/2023 10:34 AM 03/21/2023 7:04 PM Care Teams Animal Rescuer Relationship Specialty Start Date End Date Nai Ramirez NP [address] [facility] [address] [place] [address] PCP - General Internal Medicine 04/18/23 Vinh Chicas MD [address] [facility] [address] [place] [address] PCP - Cardiology Cardiovascular Disease 06/03/23 Nai Ramirez NP 04/28/19
--- OUTSIDE RECORDS SUMMARY | 2024-10-24 08:29 | XMS_ITS | Encounter Summary ---
Author Organization [facility] Healthcare Address [address] [place] [address] Care Team Providers Care Plumbing And Heating Contractor Name Role Phone Nai Ramirez NP Unavailable [phone] Nai Ramirez NP Primary Care Provider [phone] Vinh Chicas MD Unavailable Encounter Details Date Type Department Care Team (Late st Contact Info) Description 10/02/2024 Orders Only [facility] Health Information Management [address] [place] [address] Scanning, Provider Social History Tobacco Use Types Packs/Day Years Used Date Smoking Tobacco: Former Cigarettes 0.5 40.9 S tarted: 04/24/2020 Smokeless Tobacco: Never Comments:pt [...] often do you attend chur ch or mandaen services? Never 03/18/2023 Do you belong to [...] place to sleep or slept in a senior living (including now)? No 03/18/2023 Personal Safety Answer Date Recorded Have you ever been in or are you currently in a harmful physical or emotional relationship or is someone making you feel afraid or unsafe? Denies 08/08/2023 Sex and Gender Information Value Date Recorded Sex Assigned at Not on file Legal Sex Male 3:57 PM HOSPITALITY SPECIALIST Gender Identity Male 01/08/2020 9:10 AM CDT Sexual Orientation Straight 01/08/2020 9: 10 AM CDT documented as of this encounter Plan of Treatment Not on file documented as of this encounter Procedures Procedure Name Priority Date/Time Associated Diagnosis Comments SCAN - RADIOLOGY/IMAGING 10/02/2024 documented in this encounter Results * SCAN - RADIOLOGY/IMAGING (10/02/2024) Anatomical Region Laterality Modality Other us Provider Scanning Final Result documented in this encounter Visit Diagnoses Not on filedocumented in this encounter Care Teams Plumbing And Heating Contractor Relationship Specialty Start Date End Date Nai Ramirez NP [address] [place] [address] PCP - General Internal Medicine 04/18/23 Vinh Chicas MD [address] [place] [address] PCP - Cardiology Cardiovascular Disease 06/03/23 Nai Ramirez NP 04/28/19 documented as of this encounter
--- OUTSIDE RECORDS SUMMARY | 2024-10-24 08:29 | XMS_ITS | Encounter Summary ---
Author Organization [facility] Healthcare Address [address] [place] [address] Care Team Providers Care Auto Care Center Manager Name Role Phone Nai Ramirez NP Unavailable [phone] Nai Ramirez NP Primary Care Provider [phone] Vinh Chicas MD Unavailable Reason for Visit * Reason Onset Date Comments Dizziness 10/23/2024 Encounter Details Date Type Department Care Team (Late st Contact Info) Description 10/23/2024 Nurse Triage [facility] Medical Group Internal Medicine at [facility] [address] [place] [address] Nai Ramirez NP [address] [place] [address] Social History Tobacco Use Types [...] often do you attend chur ch or samaritan services? Never 03/18/2023 Do you belong to any clubs o r organizations such as episcopal groups, unions, fraternal or athletic groups, or [...] on file Legal Sex Male 3:57 PM IDENTIFICATION PRINTING MACHINE SETTER Gender Identity Male 01/08/2020 9:10 AM CDT Sexual Orientation Straight 01/08/2020 9: 10 AM CDT documented as of this encounter Miscellaneous Notes * Telephone Encounter - Carlita Saldana MA - 10/23/2024 1:18 PM CST Spoke with patient will go to ER for evaluation. TIFICATION PRINTING MACHINE SETTER * Telephone Encounter - Nai Ramirez NP - 10/23/2024 1:12 PM CST Patient should report to ed and fu when discharged TIFICATION PRINTING MACHINE SETTER * Telephone Encounter - Kelly Buckner RN - 10/23/2024 12:10 PM IDENTIFICATION PRINTING MACHINE SETTER Patient calling with headache (02/09) and off balance all week. This morning when he got up he fell back onto bed. Then when he went to bathroom he fell over toilet and hit wall with his elbow due to dizziness. Denies chest pain, difficulty breathing, vomiting, change in vision, fever, dizziness at rest. mens locker room attendant Disposition: see today in office. No apts today. Routing to Nai Ramirez NP's office to determine if there is something patient can be prescribed and be seen next week or if he needs to go to UC/ED. Please follow up with patient today. Reason for Disposition MODERATE dizziness (e.g., interferes with normal activities) (Exception: Dizziness caused by heat exposure, sudden standing, or poor fluid intake.) Protocols used: Torwijajx-Cslol-VX TIFICATION PRINTING MACHINE SETTER * Telephone Encounter - Kelly Buckner RN - 10/23/2024 11:49 AM IDENTIFICATION PRINTING MACHINE SETTER Regarding: Dizziness, Balance Problems, Fall ----- Message from Xooker sent at 10/23/2024 11:33 AM IDENTIFICATION PRINTING MACHINE SETTER ----- Symptom Based Call Chief Complaint(s): Dizziness, Balance Problems, Fall Duration: 1 week What type of symptom(s) is the patient experiencing? Red Flag. Is the patient concerned they are experiencing a medical emergency requiring an ambulance? No Additional Comments: Patient reports feeling off balance for the past week, states he fell back onto the bed when he first stood up this morning. Patient reports he then went into the bathroom where he got dizzy and fell across the bathtub. Patient states he scraped his arm on the wall but denies any other injury from the fall. Does message need to be routed? Yes-Action Needed TIFICATION PRINTING MACHINE SETTER documented in this encounter Plan of Treatment Not on file documented as of this encounter Visit Diagnoses Not on filedocumented in this encounter Care Teams Auto Care Center Manager Relationship Specialty Start Date End Date Nai Ramirez NP [address] [place] [address] PCP - General Internal Medicine 04/18/23 Vinh Chicas MD [address] [place] [address] PCP - Cardiology Cardiovascular Disease 06/03/23 Nai Ramirez NP 04/28/19 documented as of this encounter
[2024-10-24 08:35] VITALS: BP 126/92; PULSE 76; RESP 18; O2SAT 99
--- NOTE | 2024-10-24 08:47 | ECG_ITS ---
Test Date: 2024-10-24 09:02:38 Measurements Intervals [place] Rate: 67 P: 75 GA: 145 QRS: 48 QRSD: 110 T: 65 QT: 377 QTc: 399 Interpretive Statements SINUS RHYTHM MINIMAL Q WAVES- INF/LAT LEADS BASELINE ARTIFACT- I, II, AVR, AVL, V4-V5 BORDERLINE ECG Compared to ECG 10/02/2024 13:56:56 HEART RATE HAS INCREASED Electronically Signed On 10-24-2024 13:46:52 LICENSED PHARMACIST by Lalo Mckeon D.O.
[2024-10-24] MEDS: SODIUM CHLORIDE 0.9% IV 1,000 ML 999 ML IV CONT (09:04)
[2024-10-24 09:11] LABS: Basophils Percent Auto 0.2 % (0.2-1.2); Eosinophils Percent Auto 0.7 % (0-4.4); Hematocrit 39.9 % (42.0-52.0); Hemoglobin 13.5 g/dL (14.0-18.0); Immature Granulocyte Absolute 0.01 K/mm3 (0.00-0.031); Immature Granulocyte Percent A 0.2 % (0-0.5); Lymphocytes Absolute Auto 1.05 K/mm3 (0.9-3.2); Lymphocytes Percent Auto 19.2 % (18.3-44.2); Mean Corpuscular HGB Conc 33.8 g/dl (32-36); Mean Corpuscular Hemoglobin 32.5 pg (26-34); Mean Corpuscular Volume 95.9 fl (80-100); Mean Platelet Volume 9.1 fl (7.4-10.4); Monocytes Absolute Auto 0.4 K/mm3 (0.1-0.6); Monocytes Percent Auto 7.9 % (2.6-8.5); Neutrophils Absolute Auto 3.9 K/mm3 (1.3-6.7); Neutrophils Percent Auto 71.8 % (45.5-73.1); Platelet Count Result 193 k/mm3 (150-375); Red Blood Count 4.16 M/mm3 (4.6-6.20); Red Cell Distribution Width 12.6 % (11.5-14.5); White Blood Count 5.5 K/mm3 (4.5-10.0)
--- NOTE | 2024-10-24 09:13 | ED_ITS ---
HPI - General Adult General Chief complaint: Neck Pain/Injury Stated complaint: neck pain Time Seen by Provider: 10/24/24 08:34 History of Present Illness HPI narrative: 64-year-old male presented to the emergency department for evaluation for recurrent head and neck pain with new lightheaded dizziness. Patient states he was just recently evaluated with head neck pain. Patient states that he did have recent lightheaded dizziness and did fall strike his elbow and strike his head against the wall. Patient denies any loss consciousness with this. Patient did call his primary care physician and was told he needed to be re- evaluated. Patient does have history of frequent headaches over the last 4 years. Patient states he lightheaded disease is new. Patient does admit to THC use. Related Data Allergies Allergy/AdvReac Type Severity Reaction Status Date / Time No Known Allergies Allergy Unverified 10/09/16 19:42 Review of Systems 2 Review of Systems: All systems reviewed & are unremarkable except as noted in HPI and below Exam 2 Narrative: APPEARANCE: Well appearing, no pain, no distress, well-nourished. HEAD: normocephalic, atraumatic. EYES: PERRLA/EOMI, conjunctivae clear. NOSE: Normal no drainage EARS:TMS clear with good light reflex. THROAT: Pharynx clear, no exudate. Mouth: Dry mucous membranes NECK: Supple. No adenopathy, no masses. RESPIRATORY: Airway patent, respirations nonlabored. Clear to auscultation bilaterally, no rales, rhonchi, wheezing. CARDIOVASCULAR: Regular rate and rhythm without murmurs rubs or gallops. ABDOMINAL: Soft, nontender, nondistended, normal bowel sounds MUSCULOSKELETAL: Moves all extremities. Strength/ROM intact, No edema, No calf tenderness. NEURO: Alert. Cranial nerves II through XII intact. Good gait. Good coordination SKIN: Warm, dry. Normal Color Course Vital Signs Vital signs: Vital Signs Temperature 97.7 F 10/24/24 08:26 Pulse Rate 87 10/24/24 08:26 Respiratory Rate 18 10/24/24 08:26 Blood Pressure 148/79 H 10/24/24 08:26 Pulse Oximetry 100 10/24/24 08:26 Oxygen Delivery Room Air 10/24/24 08:26 Temperature 97.7 F 10/24/24 08:26 Pulse Rate 60 10/24/24 10:40 Respiratory Rate 18 10/24/24 10:40 Blood Pressure 113/85 10/24/24 10:40 Pulse Oximetry 96 10/24/24 10:40 Oxygen Delivery Room Air 10/24/24 08:26 Medical Decision Making [facility] Narrative Medical decision making narrative: 64-year-old male present to the emergency department for evaluation for lightheaded dizziness and a subsequent head injury. Patient's CT head cervical spine were negative. Patient's orthostatic vital signs were initially positive but did resolve with IV fluids. Patient is afebrile with no leukocytosis and hemoglobin of 13.5. No acute abnormalities on his CMP UA was negative for infection. Patient did test positive for influenza A. Differential Diagnosis Differential Diagnosis: Head injury, neck injury, subdural hematoma, subarachnoid hemorrhage, COVID, RSV, influenza, dehydration Vital Signs Vital Signs: Vital Signs Temperature 97.7 F 10/24/24 08:26 Pulse Rate 87 10/24/24 08:26 Respiratory Rate 18 10/24/24 08:26 Blood Pressure 148/79 H 10/24/24 08:26 Pulse Oximetry 100 10/24/24 08:26 Oxygen Delivery Room Air 10/24/24 08:26 Temperature 97.7 F 10/24/24 08:26 Pulse Rate 60 10/24/24 10:40 Respiratory Rate 18 10/24/24 10:40 Blood Pressure 113/85 10/24/24 10:40 Pulse Oximetry 96 10/24/24 10:40 Oxygen Delivery Room Air 10/24/24 08:26 Lab Data Lab results reviewed: Yes I reviewed the patient's lab results. 10/24/24 09:03 10/24/24 09:03 Labs: Lab Results 10/24/24 10/24/24 Range/Units 09:03 09:11 WBC 5.5 (4.5-10.0) K/mm3 RBC 4.16 L (4.6-6.20) M/mm3 Hgb 13.5 L (14.0-18.0) g/dL Hct 39.9 L (42.0-52.0) % MCV 95.9 (80-100) fl MCH 32.5 (26-34) pg MCHC 33.8 (32-36) g/dl RDW 12.6 (11.5-14.5) % Plt Count 193 (150-375) k/mm3 MPV 9.1 (7.4-10.4) fl Immature Gran % (Auto) 0.2 (0-0.5) % Neut % (Auto) 71.8 (45.5-73.1) % Lymph % (Auto) 19.2 (18.3-44.2) % Stanislaus % (Auto) 7.9 (2.6-8.5) % Eos % (Auto) 0.7 (0-4.4) % Baso % (Auto) 0.2 (0.2-1.2) % Lymph # (Auto) 1.05 (0.9-3.2) K/mm3 Stanislaus # (Auto) 0.4 (0.1-0.6) K/mm3 Eos # (Auto) 0.0 (0-0.3) K/mm3 Baso # (Auto) 0.0 (0.0-0.1) K/mm3 Abs Immat Gran (auto) 0.01 (0.00-0.031) K/mm3 Absolute Neuts (auto) 3.9 (1.3-6.7) K/mm3 Absolute Nucleated RBC 0.000 (0.0-0.012) K/mm3 Nucleated RBC % 0.0 (0.0-0.2) % Sodium 137 (137-145) mmol/L Potassium 4.1 (3.4-5.0) mmol/L Chloride 105 (98-107) mmol/L Carbon Dioxide 20 L (22-30) mmol/L Anion Gap 12 (4-12) mmol/L BUN 18 (9-20) mg/dL Creatinine 0.87 (0.7-1.3) mg/dL Estim Creat Clear Calc 89 ml/min Estimated GFR > 60 (59 - ) Glucose 111 H (65-110) mg/dL Calcium 9.1 (8.4-10.2) mg/dL Total Bilirubin 0.5 (0.2-1.3) mg/dL AST 19 (17-59) U/L ALT 16 (6-50) U/L Alkaline Phosphatase 84 (38-126) U/L Total Protein 7.0 (6.3-8.2) g/dL Albumin 4.0 (3.5-5.1) g/dL Urine Color Dark yellow (Yellow) Urine Appearance Clear (Clear) Urine pH 6.0 (5.0-9.0) Ur Specific Jeannette 1.023 (1.001-1.035) Urine Protein Trace (Negative) mg/dL Urine Glucose (UA) Negative (Negative) mg/dL Urine Ketones Trace H (Negative) mg/dL Ur Blood (Man) Negative (Negative) Urine Nitrate Negative (Negative) Urine Bilirubin Negative (Negative) Urine Urobilinogen 1.0 (<2.0) mg/dL Leukocyte Esterase Rfl Negative (Negative) CLEOPATRA/UL Urine RBC 3-5 H (0-2) /hpf Urine WBC 0-5 (0-3) /hpf Ur Squamous Epith Cells None seen (Few) /hpf Urine Bacteria None seen /hpf Urine Casts 0-2 Influenza A (RT-PCR) Positive A (Negative) Influenza B (RT-PCR) Negative (Negative) RSV (RT-PCR) Negative (Negative) SARS-CoV-2 RNA (RT-PCR) Negative (Negative) Imaging Data Radiologist's impression: Impressions Head CT 10/24/24 09:45 IMPRESSION: 1. Normal aging brain. No fracture or acute intracranial process. Cervical Spine CT 10/24/24 09:48 IMPRESSION: 1. Mild reversal of the normal cervical lordosis which is likely positional or due to muscle spasm. No acute osseous abnormality. 2. Mild to moderate cervical spondylosis. Discharge Plan Discharge Clinical Impression: Head injury, Orthostatic hypotension, Influenza A Patient Disposition: Home, Self-Care Condition: Stable Instructions: Antibiotic Form, Influenza (DC), Head Injury (ED), Hypotension (DC) Additional Instructions: Drink plenty of fluids. Have close follow-up with your primary care physician. If you have any worsening symptoms then please call or return to the emergency department. Patient Language: Tajik Prescriptions: No Action diclofenac sodium 75 mg tablet,delayed release (DR/EC) 75 mg PO BID PRN (Reason: pain) Qty: 14 0RF cyclobenzaprine 7.5 mg tablet 7.5 mg PO TID Qty: 20 0RF ondansetron HCl 4 mg tablet 4 mg PO Q4H Qty: 10 0RF Rx Instructions: 1st dose 1-2 hr before radiation meclizine [Bonine] 25 mg tablet,chewable 25 mg PO TID Qty: 20 0RF Follow-up/Referrals: Davin,Rebel Carvalho MD [Primary Care Provider] -
--- OUTSIDE RECORDS SUMMARY | 2024-10-24 09:18 | XMS_ITS | Encounter Summary ---
Author Organization [facility] Healthcare Address [address] [place] [address] Care Team Providers Care Senior Architectural Designer Name Role Phone Nai Ramirez NP Unavailable [phone] Nai Ramirez NP Primary Care Provider [phone] Vinh Chicas MD Unavailable Reason for Visit * Reason Onset Date Comments Dizziness 10/23/2024 Encounter Details Date Type Department Care Team (Late st Contact Info) Description 10/23/2024 Nurse Triage [facility] Internal Medicine at [place] [address] [place] [address] Nai Ramirez NP [address] [place] [address] Social History Tobacco Use Types [...] often do you attend chur ch or temple services? Never 03/18/2023 Do you belong to any clubs o r organizations such as advent groups, unions, fraternal or athletic groups, or [...] place to sleep or slept in a detention (including now)? No 03/18/2023 Personal Safety Answer Date Recorded Have you ever been in or are you currently in a harmful physical or emotional relationship or is someone making you feel afraid or unsafe? Denies 08/08/2023 Sex and Gender Information Value Date Recorded Sex Assigned at Not on file Legal Sex Male 3:57 PM VESSEL CREW MEMBER Gender Identity Male 01/08/2020 9:10 AM CDT Sexual Orientation Straight 01/08/2020 9: 10 AM CDT documented as of this encounter Miscellaneous Notes * Telephone Encounter - Carlita Saldana MA - 10/23/2024 1:18 PM CST Spoke with patient will go to ER for evaluation. EL CREW MEMBER * Telephone Encounter - Nai Ramirez NP - 10/23/2024 1:12 PM CST Patient should report to ed and fu when discharged EL CREW MEMBER * Telephone Encounter - Kelly Buckner RN - 10/23/2024 12:10 PM VESSEL CREW MEMBER Patient calling with headache (02/09) and off balance all week. This morning when he got up he fell back onto bed. Then when he went to bathroom he fell over toilet and hit wall with his elbow due to dizziness. Denies chest pain, difficulty breathing, vomiting, change in vision, fever, dizziness at rest. cardiology specialist Disposition: see today in office. No apts [...] standing, or poor fluid intake.) Protocols used: [id number] EL CREW MEMBER * Telephone Encounter - Kelly Buckner RN - 10/23/2024 11:49 AM VESSEL CREW MEMBER Regarding: Dizziness, Balance Problems, Fall ----- Message from [employer] sent at 10/23/2024 11:33 AM VESSEL CREW MEMBER ----- Symptom Based Call Chief Complaint(s): Dizziness, [...] message need to be routed? Yes-Action Needed EL CREW MEMBER documented in this encounter Plan of Treatment Not on file documented as of this encounter Visit Diagnoses Not on filedocumented in this encounter Care Teams Senior Architectural Designer Relationship Specialty Start Date End Date Nai Ramirez NP [address] [place] [address] PCP - General Internal Medicine 04/18/23 Vinh Chicas MD [address] [place] [address] PCP - Cardiology Cardiovascular Disease 06/03/23 Nai Ramirez NP 04/28/19 documented as of this encounter
--- OUTSIDE RECORDS SUMMARY | 2024-10-24 09:18 | XMS_ITS | Encounter Summary ---
Author Organization [facility] Facility Care Team Providers Care Grocery Packer Name Role Phone Rebel Jin MD Primary Care Provider [phone] Nai Ramirez UNIVERSITY DEMONSTRATOR Primary Care Provider [phone] Rahul Marshall MD Primary Care Provider [phone] Nai Ramirez UNIVERSITY DEMONSTRATOR Unavailable [phone] Rebel Jin MD Primary Care Provider [phone] Nai Ramirez UNIVERSITY DEMONSTRATOR Primary Care Provider [phone] Nai Ramirez UNIVERSITY DEMONSTRATOR Primary Care Provider [phone] Nai Ramirez UNIVERSITY DEMONSTRATOR Primary Care Provider [phone] Vinh Chicas MD Unavailable Encounter Details Date Type Department Care Team (Latest Contact Info) Description 01/14/2018 Orders Only [facility] CLINCONV ProviderHailee MD [address] [place] [address] Social History Tobacco Use Types Packs/Day Years Used Date Smoking Tobacco: Former Sex and Gender Information Value Date Recorded Sex Assigned at Not on file Legal Sex Male 3:57 PM BEHAVIORAL HEALTH RN Gender Identity Male 01/08/2020 9:10 AM CDT [...] COVID: Suspected 10/16/2022 10/16/2022 10/16/2022 4:55 PM BEHAVIORAL HEALTH RN documented as of this encounter Care Teams Grocery Packer Relationship Specialty Start Date End Date Rebel Jin MD [facility] [facility] [place] [address] PCP - General 01/20/18 10/14/18 Nai Ramirez, UNIVERSITY DEMONSTRATOR [address] [place] [address] [place] [address] PCP - General 10/15/18 04/27/19 Rahul Marshall MD [facility] [facility] [place] [address] PCP - General 04/28/19 05/14/19 Rebel Jin MD [address] [place] [address] [place] [address] PCP - General Internal Medicine 05/15/19 10/06/19 Nai Ramirez NP [address] [place] [address] [place] [address] PCP - General 10/31/19 04/17/23 Nai Ramirez NP [address] [place] [address] PCP - General 10/07/19 10/30/19 Nai Ramirez, UNIVERSITY DEMONSTRATOR [address] [place] [address] PCP - General Internal Medicine 04/18/23 Vinh Chicas MD [address] [place] [address] PCP - Cardiology Cardiovascular Disease 06/03/23 Nai Ramirez, UNIVERSITY DEMONSTRATOR [address] [place] [address] 04/28/19 documented as of this encounter
--- OUTSIDE RECORDS SUMMARY | 2024-10-24 09:18 | XMS_ITS | Encounter Summary ---
Author Organization [facility] Facility Care Team Providers Care Mortgage Loan Officer Name Role Phone Rebel Jin MD Primary Care Provider [phone] Nai Ramirez SUPERINTENDENT OVERHEAD DISTRIBUTION Primary Care Provider [phone] Rahul Marshall MD Primary Care Provider [phone] Nai Ramirez SUPERINTENDENT OVERHEAD DISTRIBUTION Unavailable [phone] Rebel Jin MD Primary Care Provider [phone] Nai Ramirez SUPERINTENDENT OVERHEAD DISTRIBUTION Primary Care Provider [phone] Nai Ramirez SUPERINTENDENT OVERHEAD DISTRIBUTION Primary Care Provider [phone] Nai Ramirez SUPERINTENDENT OVERHEAD DISTRIBUTION Primary Care Provider [phone] Vinh Chicas MD Unavailable Encounter Details Date Type Department Care Team (Latest Contact Info) Description 10/09/2016 Orders Only [facility] CLINCONV ProviderHailee MD [address] [place] [address] Social History Tobacco Use Types Packs/Day Years Used Date Smoking Tobacco: Former Sex and Gender Information Value Date Recorded Sex Assigned at Not on file Legal Sex Male 3:57 PM CLOTH EXAMINER HAND Gender Identity Male 01/08/2020 9:10 AM CDT [...] COVID: Suspected 10/16/2022 10/16/2022 10/16/2022 4:55 PM CLOTH EXAMINER HAND documented as of this encounter Care Teams Mortgage Loan Officer Relationship Specialty Start Date End Date Rebel Jin MD [address] [facility] [place] [address] PCP - General 01/20/18 10/14/18 Nai Ramirez, SUPERINTENDENT OVERHEAD DISTRIBUTION [address] [address] [place] [address] PCP - General 10/15/18 04/27/19 Rahul Marshall MD [facility] [place] [address] PCP - General 04/28/19 05/14/19 Rebel Jin MD [address] [facility] [place] [address] PCP - General Internal Medicine 05/15/19 10/06/19 Nai Ramirez NP [address] [facility] [place] [address] PCP - General 10/31/19 04/17/23 Nai Ramirez SUPERINTENDENT OVERHEAD DISTRIBUTION [address] [facility] [place] [address] PCP - General 10/07/19 10/30/19 Nai Ramirez NP [address] [place] [address] PCP - General Internal Medicine 04/18/23 Vinh Chicas MD [address] [place], [place] [address] PCP - Cardiology Cardiovascular Disease 06/03/23 Nai Ramirez, CHRIS [address] [facility] [place] [address] 04/28/19 documented as of this encounter
--- OUTSIDE RECORDS SUMMARY | 2024-10-24 09:18 | XMS_ITS | Encounter Summary ---
Author Organization [facility] Facility Care Team Providers Care Windows Mobile Developer Name Role Phone Rebel Jin MD Primary Care Provider [phone] Nai Ramirez CORRUGATOR OPERATOR HELPER Primary Care Provider [phone] Rahul Marshall MD Primary Care Provider [phone] Nai Ramirez CORRUGATOR OPERATOR HELPER Unavailable [phone] Rebel Jin MD Primary Care Provider [phone] Nai Ramirez CORRUGATOR OPERATOR HELPER Primary Care Provider [phone] Nai Ramirez CORRUGATOR OPERATOR HELPER Primary Care Provider [phone] Nai Ramirez CORRUGATOR OPERATOR HELPER Primary Care Provider [phone] Vinh Chicas MD Unavailable Encounter Details Date Type Department Care Team (Latest Contact Info) Description 05/27/2018 Orders Only [facility] CLINCONV ProviderHailee MD [address] [place] [address] Social History Tobacco Use Types Packs/Day Years Used Date Smoking Tobacco: Former Sex and Gender Information Value Date Recorded Sex Assigned at Not on file Legal Sex Male 3:57 PM RESIDENT SURGEON Gender Identity Male 01/08/2020 9:10 AM CDT [...] COVID: Suspected 10/16/2022 10/16/2022 10/16/2022 4:55 PM RESIDENT SURGEON documented as of this encounter Care Teams Windows Mobile Developer Relationship Specialty Start Date End Date Rebel Jin MD [address] [facility] [place] [address] PCP - General 01/20/18 10/14/18 Nai Ramirez, CORRUGATOR OPERATOR HELPER [address] [place] [address] [place] [address] PCP - General 10/15/18 04/27/19 Rahul Marshall MD [facility] [facility] [place] [address] PCP - General 04/28/19 05/14/19 Rebel Jin MD [address] [place] [address] [place] [address] PCP - General Internal Medicine 05/15/19 10/06/19 Nai Ramirez NP [address] [place] [address] [place] [address] PCP - General 10/31/19 04/17/23 Nai Ramirez NP [address] [facility] [place] [address] PCP - General 10/07/19 10/30/19 Nai Ramirez, CORRUGATOR OPERATOR HELPER [address] [place] [address] PCP - General Internal Medicine 04/18/23 Vinh Chicas MD [address] [place] [address] PCP - Cardiology Cardiovascular Disease 06/03/23 Nai Ramirez, CORRUGATOR OPERATOR HELPER [address] [facility] [place] [address] 04/28/19 documented as of this encounter
--- OUTSIDE RECORDS SUMMARY | 2024-10-24 09:18 | XMS_ITS | Encounter Summary ---
Author Organization [facility] Facility Care Team Providers Care Product Safety Compliance Leader Name Role Phone Rebel Jin MD Primary Care Provider [phone] Nai Ramirez GREEN BUILDING DESIGN SPECIALIST Primary Care Provider [phone] Rahul Marshall MD Primary Care Provider [phone] Nai Ramirez GREEN BUILDING DESIGN SPECIALIST Unavailable [phone] Rebel Jin MD Primary Care Provider [phone] Nai Ramirez GREEN BUILDING DESIGN SPECIALIST Primary Care Provider [phone] Nai Ramirez GREEN BUILDING DESIGN SPECIALIST Primary Care Provider [phone] Nai Ramirez GREEN BUILDING DESIGN SPECIALIST Primary Care Provider [phone] Vinh Chicas MD Unavailable Encounter Details Date Type Department Care Team (Latest Contact Info) Description 06/23/2018 Orders Only [facility] CLINCONV ProviderHailee MD [address] [place] [address] Social History Tobacco Use Types Packs/Day Years Used Date Smoking Tobacco: Former Sex and Gender Information Value Date Recorded Sex Assigned at Not on file Legal Sex Male 3:57 PM DAIRY PROCESSING EQUIPMENT OPERATOR Gender Identity Male 01/08/2020 9:10 AM [...] COVID: Suspected 10/16/2022 10/16/2022 10/16/2022 4:55 PM DAIRY PROCESSING EQUIPMENT OPERATOR documented as of this encounter Care Teams Product Safety Compliance Leader Relationship Specialty Start Date End Date Rebel Jin MD [address] [facility] [place] [address] PCP - General 01/20/18 10/14/18 Nai Ramirez, CHRIS [address] [place] [address] [place] [address] PCP - General 10/15/18 04/27/19 Rahul Marshall MD [address] [facility] [place] [address] PCP - General 04/28/19 05/14/19 Rebel Jin MD [address] [facility] [place] [address] PCP - General Internal Medicine 05/15/19 10/06/19 Nai Ramirez NP [address] [place] [address] [place] [address] PCP - General 10/31/19 04/17/23 Nai Ramirez NP [address] [facility] [address] [place] [address] PCP - General 10/07/19 10/30/19 Nai Ramirez, CHRIS [address] [place] [address] PCP - General Internal Medicine 04/18/23 Vinh Chicas MD [address] [place] [address] PCP - Cardiology Cardiovascular Disease 06/03/23 Nai Ramirez, CHRIS [address] [facility] [place] [address] 04/28/19 documented as of this encounter
--- OUTSIDE RECORDS SUMMARY | 2024-10-24 09:18 | XMS_ITS | Continuity of Care Document ---
Author Organization [facility] Address [address] [address] Phone Care Team Providers Care Housekeeping Staff Name Role Phone Chris Caban PTA Unavailable Unavailable Procedures Procedure Date WORK COND/WORK HARD RE EVAL -2019 Work Conditioning Initial 2 hrs Jan--2 020 Work Conditioning add 1 hr -2019 Work Conditioning Initial 2 hrs Jan--2 020 Work Conditioning Initial 2 hrs Jan--2 020 Work Conditioning add 1 hr -2019 Work Conditioning add 1 hr -2019 Work Conditioning Initial 2 hrs Vito-25-2 020 Work Conditioning Initial 2 hrs Vito-23-2 020 Work Conditioning add 1 hr Jan--2019 Work Conditioning Initial 2 hrs Vito-19-2 020 Work Conditioning add 1 hr Jan--2019 Work Conditioning add 1 hr Vito-18-2019 Work Conditioning Initial 2 hrs Vito-18-2 020 Work Conditioning add 1 hr Vito-15-2019 Work Conditioning Initial 2 hrs Vito-15-2 020 Work Conditioning add 1 hr Jan--2019 Work Conditioning Initial 2 hrs Vito-12-2 020 Work Conditioning Initial 2 hrs Vito-11-2 020 Work Conditioning add 1 hr Vito--2019 Work Conditioning Initial 2 hrs Vito-10-2 020 Work Conditioning add 1 hr Vito--2019 Work Conditioning Initial 2 hrs Vito--2 020 Work Conditioning add 1 hr Jan--2019 Work Conditioning Initial 2 hrs Vito--2 020 Work Conditioning add 1 hr -2019 Work Conditioning Initial 2 hrs December--2 020 Work Conditioning add 1 hr -2019 Work Conditioning Initial 2 hrs December-- 020 Work Conditioning add 1 hr -2019 Work Conditioning Initial 2 hrs -2 020 Work Conditioning add 1 hr -2019 [...] Date Provider Providers Copied on Encounter [facility], [address] [facility] [address], [place], [place], [id number], [place] tel:[phone] [facility] No Information Walker Chris. . Referring Provider: Balta Villaseñor [address], [place], [address]. tel:[phone], [place], [place], [address], [place] tel:[phone] [facility] No Information Walker Chris. . Referring Provider: Balta Villaseñor [address], [place], [address]. tel:[phone] [facility] [address], [place], [place], [id number], [place] tel:[phone] [facility] No Information Walker Chris. . Referring Provider: Balta Villaseñor [address]Carolann [address], [place], [address]. tel:[phone] [facility] [address], [place], [place], [address], [place] tel:[phone] [facility] No Information Walker Chris. . Referring Provider: Balta Villaseñor RockyCarolann [address], [place], [address]. tel:[phone] [facility] [address], [place], [place], [address], [place] tel:[phone] [facility] No Information Walker Chris. . Referring Provider: Balta Villaseñor [address]Carolann [address], [place], [address]. tel:[phone] [facility] [address], [place], [place], [address], [place] tel:[phone] [facility] No Information Walker Chris. . Referring Provider: Balta Villaseñor [address]Carol[address], [place], [address]. tel:[phone] [facility] [address], [place], [place], [address], [place] tel:[phone] [facility] No Information Walker Chris. . Referring Provider: Balta Villaseñor [address]Carol[address], [place], [address]. tel:[phone], [place], [place], [address], [place] tel:[phone] [facility] No Information Walker Chris. . Referring Provider: Balta Villaseñor RockyCarolann [facility] [address], [place], [address]. tel:[phone], [place], [place], [address], [place] tel:[phone] [facility] No Information Walker Chris. . Referring Provider: Balta Villaseñor [address]Carol[address], [place], [address]. tel:[phone], [place], [place], [id number], [place] tel:[phone] [facility] No Information Walker Chris. . Referring Provider: Balta Villaseñor [address], [place], [address]. tel:[phone], [place], [place], [address], [place] tel:[phone] [facility] No Information Walker Chris. . Referring Provider: Balta Villaseñor [address], [place], [address]. tel:[phone] [facility] [address], [place], [place], [address], [place] tel:[phone] [facility] No Information Walker Chris. . Referring Provider: Balta Villaseñor [address], [place], [address]. tel:[phone] [address], [place], [place], [id number], [place] tel:[phone] [facility] No Information Walker Chris. . Referring Provider: Balta Villaseñor [address]Carol[address], [place], [address]. tel:[phone] [address], [place], [place], [id number], tel:[phone] [facility] No Information Walker Chris. . Referring Provider: Balta Villaseñor [address], [place], [address]. tel:[phone] [facility] [address], [place], [place], [address], tel:[phone] [facility] No Information Walker Chris. . Referring Provider: Balta Villaseñor [address]Carol[address], [place], [address]. tel:[phone] [facility] [address], [place], [place], [address], [place] tel:[phone] [facility] No Information Walker Chris. . Referring Provider: Balta Villaseñor [address]Carol[address], [place], [address]. tel:[phone] [facility] [address], [place], [place], [address], tel:[phone] [facility] No Information Walker Chris. . Referring Provider: Balta Villaseñor [address], [place], [address]. tel:[phone] [facility] [address] [place], [place] [address], [place], [place], [address], tel:[phone] [facility] No Information Walker Chris. . Referring Provider: Balta Villaseñor Amy [address], [place], [address]. tel:[phone] [facility] [address] [place], [place] [address], [place], [place], [address], [place] tel:[phone] [facility] No Information Stevo Hammonds. . Referring Provider: Balta Villaseñor [address], [place], [address]. tel:[phone] [facility] [address] [place], [place] [address], [place], [place], [address], [place] tel:[phone] [facility] No Information Walker Chris. . Referring Provider: Balta Villaseñor [address], [place], [address]. tel:[phone] [facility] [address] [place], [place] [address], [place], [place], [address], [place] tel:[phone] [facility] No Information Stevo Banuelosa. . Referring Provider: Balta Villaseñor [address], [place], [address]. tel:[phone] [facility] [address] [place], [place] [address], [place], [place], [address], [place] tel:[phone] [facility] No Information Walker Chris. . Referring Provider: Balta Villaseñor [address], [place], [address]. tel:[phone] [facility], [place], [place], [address], [place] tel:[phone] [facility] No Information Walker Chris. . Referring Provider: Balta Villaseñor [address], [place], [address]. tel:[phone] [facility] [address], [place], [place], [address], [place] tel:[phone] [facility] No Information Walker Chris. . Referring Provider: Balta Villaseñor [address], [place], [address]. tel:[phone] [facility] [address], [place], [place], [address], [place] tel:[phone] [facility] No Information Walker Chris. . Referring Provider: Balta Villaseñor [address], [place], [address]. tel:[phone] [facility] [address], [place], [place], [address], [place] tel:[phone] [facility] No Information Walker Chris. . Referring Provider: Balta Villaseñor [address], [place], [address]. tel:[phone] [facility] [address], [place], [place], [address], [place] tel:[phone] [facility] No Information Walker Chris. . Referring Provider: Balta Villaseñor [address], [place], [address]. tel:[phone] [facility], [place], [place], [address], [place] tel:[phone] [facility] No Information Arsh Perez. . Referring Provider: Amy [address], [place], [address]. tel:[phone] [facility] [address], [place], [place], [address], [place] tel:[phone] [facility] No Information Stevo Hammonds. . Referring Provider: Baltanestor Villaseñor Amy [facility] [address], [place], [address]. tel:[phone] [facility] [address], [place], [place], [address], [place] tel:[phone] [facility] No Information Stevo Hammonds. . Referring Provider: Baltanestor Villaseñor [facility] [address], [place], [address]. tel:[phone] [facility] [address], [place], [place], [address], [place] tel:[phone] [facility] No Information Stevo Hammonds. . Referring Provider: Balta Villaseñor [address], [place], [address]. tel:[phone] [facility] [address], [place], [place], [address], [place] tel:[phone] [facility] No Information Arsh Perez. . Referring Provider: Balta Villaseñor, Amy [address], [place], [address]. tel:[phone] [facility], [place], [place], [address], [place] tel:[phone] [facility] No Information Walker Chris. . Referring Provider: Balta Villaseñor, [address], [place], [address]. tel:[phone] [facility] [facility] [address], [place], [place], [address], tel:[phone] [facility] No Information Arsh Perez. . Referring Provider: Balta Villaseñor, [address], [place], [address]. tel:[phone] [facility] [facility], [place], [place], [address], tel:[phone] [facility] No Information Stevo Rubio . Referring Provider: Balta Villaseñor, [address], [place], [address]. tel:[phone] Family History Family Member Type Diagnosis Age At Onset No Information Payers Payer name Insurance type Covered green party ID Authorlizette browne(s) [facility] [id number] Social History Type Description Quantity Date Captured [...]
--- OUTSIDE RECORDS SUMMARY | 2024-10-24 09:18 | XMS_ITS | Clinical Summary ---
Author Organization [place] [id number] [facility] Address [facility] [place] [address] Care Team Providers Care Water Treatment Plant Engineer Name Role Phone aNi Ramirez NP Unavailable [phone] Nai Ramirez NP Primary Care Provider [phone] Vinh Chicas MD Unavailable Allergies No known [...] 10/12/2024 Assessment & Plan (10/13/2024 7:48 AM SENIOR ACCOUNTANT): This is a significant, separately identifiable problem [...] release Assessment & Plan (07/20/2019 3:48 PM SENIOR ACCOUNTANT): Marked improvement in range of motion. Marked improvement in pain. However, developed muscle spasms. Anxious to get back to normal activities. Wants to continue physical therapy for strengthening. Assessment & Plan (07/06/2019 8:44 AM SENIOR ACCOUNTANT): Patient has failed nonsteroidal anti-inflammatories and formal [...] restriction. Assessment & Plan (10/14/2019 10:05 AM SENIOR ACCOUNTANT): Begin work hardening strength training. Follow up in 6 weeks. Assessment & Plan (08/31/2019 1:28 PM SENIOR ACCOUNTANT): Formal physical therapy with strengthening for 6 more weeks. Patient will follow up in 6 weeks. Assessment & Plan (07/20/2019 3:48 PM SENIOR ACCOUNTANT): Formal physical therapy with strengthening Assessment & Plan (07/06/2019 8:44 AM SENIOR ACCOUNTANT): Not making progress with formal physical therapy [...] 05/17/2017 Assessment & Plan (07/06/2020 1:32 PM SENIOR ACCOUNTANT): The patient was giving a different style [...] Department Care Team Description 10/23/2024 Nurse Triage [facility] Internal Medicine at [address] [place] [address] Nai Ramirez NP 10/14/2024 Telephone [facility] Medicine at [address] [place] [phone] Nai Ramirez NP Symptom Based Call 10/12/2024 3:00 PM SENIOR ACCOUNTANT Office Visit [facility] at [address] [place] [phone] Nai Ramirez NP Physical exam, annual (Primary Dx); Chronic migraine without aura without status migrainosus, not intractable; BMI 23.0-23.9, adult; Primary insomnia 10/02/2024 Orders Only [facility] Health Information Management [address] [place] [address] Scanning, Provider 10/01/2024 Nurse Triage [facility] Internal Medicine at [address] [place] [phone] Dominga Wolfe, DARIN 10/01/2024 Nurse Triage [facility] Medicine at [address] [place] [phone] Nai Ramirez NP 09/23/2024 3:00 PM SENIOR ACCOUNTANT Office Visit [facility] at [address] [address] Deirdre Clark NP Generalized headache (Primary Dx); Dizziness 09/22/2024 Nurse Triage [facility] Medicine at [address] [place] [address] Nai Ramirez NP 09/03/2024 Telephone [facility] Internal Medicine at [place] [address] [place] [phone] Nai Ramirez NP Med Refill 08/25/2024 8:30 AM SENIOR ACCOUNTANT Office Visit [facility] Internal [facility] at [place] [address] [place] [address] Nai Ramirez NP Acute recurrent maxillary sinusitis [...] repaired Abnormal stress test 06/10/2023 High cholesterol MS, old 06/17/2023 patient states h e was told he had an old MS, he was not aware, not symptomatic Bilateral [...] often do you attend chur ch or hinduism services? Never 03/18/2023 Do you belong to any clubs o r organizations such as moravian groups, unions, fraternal or athletic groups, or [...] file Legal Sex Male 3:57 PM SENIOR ACCOUNTANT Gender Identity Male 01/08/2020 9:10 AM CDT Sexual Orientation Straight 01/08/2020 9: 10 AM CDT Obstetrics History Last Filed Vital Signs Vital Sign Reading Time Taken Comments Blood Pressure 138/78 10/12/2024 2:50 PM SENIOR ACCOUNTANT Pulse 66 10/12/2024 2:50 PM SENIOR ACCOUNTANT Temperature 36.6 C (97.8 F) 10/12/2024 2:50 PM SENIOR ACCOUNTANT Respiratory Rate 14 09/23/2024 3:06 PM SENIOR ACCOUNTANT Oxygen Saturation 97% 10/12/2024 2:50 PM SENIOR ACCOUNTANT Inhaled Oxygen Concentration - - Weight 89.4 kg (197 lb) 10/12/2024 2:50 PM SENIOR ACCOUNTANT Height 193 cm (6' 4 ) 10/12/2024 2:50 PM SENIOR ACCOUNTANT Body Mass Index 23.98 10/12/2024 2:50 PM SENIOR ACCOUNTANT Plan of Treatment Health Maintenance Due Date [...] Completed 08/25/2024 Medical Devices Implanted Type Area Public Affairs Specialist Device Identifier Shelf Expiration Date Model / [...] data last revised 22. Testing performed by: [facility], [address] [place] [address]., [id number] Blood 04/20/2024 3:44 PM CDT 04/20/2024 4:36 PM CDT Nai Ramirez DIESEL TRAILER MECHANIC LAB BLOOD ORDERABLES Final Re sult [facility] [address] [facility] [place] [address] * CT Abdomen Pelvis WO [...] by Joanne Flor M.D. SN: Report ID: [id number] Reading Location: [id number] Procedure Note Joanne Flor MD - 03/17/2023 [...] by Joanne Flor M.D. SN: Report ID: [id number] Reading Location: [place] [address] Dale Kulkarni DO IMG CT PROCEDURES Final Result * Hepatitis C antibody (12/22/2019 12:28 PM CDT) Hep C Ab NONREACT NONREACTIVE [facility] Comment: Siemens CentaurXP using DON (chemiluminescent immunoassay) [...] Narrative Resulting Agency Comment CLI Nai Ramirez DIESEL TRAILER MECHANIC LAB MICROBIOLOGY - GENERAL OR DERABLES Final Result [address] [address], [facility] [phone] * COLONOSCOPY (01/14/2018) Colonoscopy Abnormal Comment:Dr. Cordova Historical Provider HEALTH MAINTENANCE Final Result from Last 3 Months or Most Recently Relevant to Health Maintenance Insurance MEDICARE MEDICARE [facility] MEDICARE Address: [address] [address] [place] [address] [facility] MEDICARE [facility] MEDIC[facility] Address: [address] [address] [place] [address] [employer] MRA Advance Directives For more information, please contact: [phone] * Full Code (Latest Code Status on File) Date Activated Date Inactivated Comments 08/08/2023 3:15 PM 08/08/2023 8:39 PM * Full Code Date Activated Date Inactivated Comments 07/01/2023 11:54 AM 07/02/2023 6:55 PM * Full Code Date Activated Date Inactivated Comments 03/19/2023 10:34 AM 03/21/2023 7:04 PM Care Teams Water Treatment Plant Engineer Relationship Specialty Start Date End Date Nai Ramirez NP [address] [facility] [address] [place] [address] PCP - General Internal Medicine 04/18/23 Vinh Chicas MD [address] [facility] [address] [place] [address] PCP - Cardiology Cardiovascular Disease 06/03/23 Nai Ramirez NP 04/28/19
--- OUTSIDE RECORDS SUMMARY | 2024-10-24 09:18 | XMS_ITS | Referral Summary ---
Author Organization [address] Address [facility] access [facility] [place] [address] Care Team Providers Care Refrigeration Technician Name Role Phone Nai Ramirez SERVICE MECHANIC Unavailable [phone] Nai Ramirez SERVICE MECHANIC Primary Care Provider [phone] Vinh Chicas MD Unavailable Encounters Date Type Department Care Team Description 10/23/2024 Nurse Triage [facility] Internal Medicine at [address] [place] [phone] Nai Ramirez NP 10/14/2024 Telephone [facility] Internal Medicine at [address] [place] [address] Nai Ramirez NP Symptom Based Call 10/12/2024 3:00 PM BLACK TOP SPREADER MACHINE OPERATOR Office Visit [facility] Internal Medicine at [address] [place] [phone] Nai Ramirez NP Physical exam, annual (Primary Dx); Chronic migraine without aura without status migrainosus, not intractable; BMI 23.0-23.9, adult; Primary insomnia 10/02/2024 Orders Only [facility] Information Management [address] [place] [address] Scanning, Provider 10/01/2024 Nurse Triage [facility] Internal Medicine at [place] [address] [place] [address] Rd [address] [place] [address] Dominga Wolfe, DARIN 10/01/2024 Nurse Triage [facility] Internal Medicine at [address] [place] [address] Nai Ramirez NP 09/23/2024 3:00 PM BLACK TOP SPREADER MACHINE OPERATOR Office Visit [facility] at [address] [address] Deirdre Clark NP Generalized headache (Primary Dx); Dizziness 09/22/2024 Nurse Triage [facility] Internal Medicine at [address] [place] [address] Nai Ramirez NP 09/03/2024 Telephone [facility] Internal Medicine at [address] [place] [address] Nai Ramirez NP Med Refill 08/25/2024 8:30 AM BLACK TOP SPREADER MACHINE OPERATOR Office Visit [facility] Internal Medicine at [address] [place] [address] Nai Ramirez NP Acute recurrent maxillary sinusitis [...] 10/12/2024 Assessment & Plan (10/13/2024 7:48 AM BLACK TOP SPREADER MACHINE OPERATOR): This is a significant, separately identifiable [...] release Assessment & Plan (07/20/2019 3:48 PM BLACK TOP SPREADER MACHINE OPERATOR): Marked improvement in range of motion. Marked improvement in pain. However, developed muscle spasms. Anxious to get back to normal activities. Wants to continue physical therapy for strengthening. Assessment & Plan (07/06/2019 8:44 AM BLACK TOP SPREADER MACHINE OPERATOR): Patient has failed nonsteroidal anti-inflammatories and [...] restriction. Assessment & Plan (10/14/2019 10:05 AM BLACK TOP SPREADER MACHINE OPERATOR): Begin work hardening strength training. Follow up in 6 weeks. Assessment & Plan (08/31/2019 1:28 PM BLACK TOP SPREADER MACHINE OPERATOR): Formal physical therapy with strengthening for 6 more weeks. Patient will follow up in 6 weeks. Assessment & Plan (07/20/2019 3:48 PM BLACK TOP SPREADER MACHINE OPERATOR): Formal physical therapy with strengthening Assessment & Plan (07/06/2019 8:44 AM BLACK TOP SPREADER MACHINE OPERATOR): Not making progress with formal physical [...] 05/17/2017 Assessment & Plan (07/06/2020 1:32 PM BLACK TOP SPREADER MACHINE OPERATOR): The patient was giving a different [...] however he was unsure of what his [employer] company was. The patient also is educated [...] How often do you attend chur or catholic services? Never 03/18/2023 Do you belong to any clubs o r organizations such as shinto groups, unions, fraternal or athletic groups, or [...] on file Legal Sex Male 3:57 PM BLACK TOP SPREADER MACHINE OPERATOR Gender Identity Male 01/08/2020 9:10 AM CDT Sexual Orientation Straight 01/08/2020 9: 10 AM CDT Last Filed Vital Signs Vital Sign Reading Time Taken Comments Blood Pressure 138/78 10/12/2024 2:50 PM BLACK TOP SPREADER MACHINE OPERATOR Pulse 66 10/12/2024 2:50 PM BLACK TOP SPREADER MACHINE OPERATOR Temperature 36.6 C (97.8 F) 10/12/2024 2:50 PM BLACK TOP SPREADER MACHINE OPERATOR Respiratory Rate 14 09/23/2024 3:06 PM BLACK TOP SPREADER MACHINE OPERATOR Oxygen Saturation 97% 10/12/2024 2:50 PM BLACK TOP SPREADER MACHINE OPERATOR Inhaled Oxygen Concentration - - Weight 89.4 kg (197 lb) 10/12/2024 2:50 PM BLACK TOP SPREADER MACHINE OPERATOR Height 193 cm (6' 4 ) 10/12/2024 2:50 PM BLACK TOP SPREADER MACHINE OPERATOR Body Mass Index 23.98 10/12/2024 2:50 PM BLACK TOP SPREADER MACHINE OPERATOR Plan of Treatment Not on file Medical Devices Implanted Type Area Propulsion Engineer Device Identifier Shelf Expiration Date Model / [...] data last revised 22. Testing performed by: [facility], [address] [place] [address], [place]., [address] Blood 04/20/2024 3:44 PM CDT 04/20/2024 4:36 PM CDT us Nai Ramirez SERVICE MECHANIC LAB BLOOD ORDERABLES Final Re sult [facility] [address] [facility] Department [place] [address] * CT Abdomen Pelvis WO Contrast (03/17/2023 [...] by Joanne Flor M.D. SN: Report ID: [id number] Reading Location: [id number] Procedure Note Joanne Flor MD - 03/17/2023 [...] by Joanne Flor M.D. SN: Report ID: [id number] Reading Location: [place] [address] Dale Kulkarni DO IMG CT PROCEDURES Final Result * Hepatitis C antibody (12/22/2019 12:28 PM CDT) [facility] Hep C Ab NONREACT NONREACTIVE [facility] Comment: Siemens SmappoaurXP using DON (chemiluminescent immunoassay) technology. NONREACTIVE: Antibodies [...] MICROBIOLOGY - GENERAL OR DERABLES Final Result [address] [phone] * COLONOSCOPY (01/14/2018) [facility] Colonoscopy Abnormal Comment:Dr. Cordova Historical Provider HEALTH MAINTENANCE Final Result from Last 3 Months or Most Recently Relevant to Health Maintenance Insurance [address] [place] [id number] MEDICARE MEDICARE SOLUTIONS [facility] [address] [place] [id number] MEDICARE SOLUTIONS BLUE ACCESS OOS CLAIMS MANAGEMENT [facility] Advance Directives For more information, please contact: [phone] * Full Code (Latest Code Status on File) Date Activated Date Inactivated Comments 08/08/2023 3:15 PM 08/08/2023 8:39 PM * Full Code Date Activated Date Inactivated Comments 07/01/2023 11:54 AM 07/02/2023 6:55 PM * Full Code Date Activated Date Inactivated Comments 03/19/2023 10:34 AM 03/21/2023 7:04 PM Care Teams Refrigeration Technician Relationship Specialty Start Date End Date Nai Ramirez NP [address] [place] [address] PCP - General Internal Medicine 04/18/23 Vinh Chicas MD [address] [place] [address] PCP - Cardiology Cardiovascular Disease 06/03/23 Nai Ramirez NP 04/28/19
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
--- OUTSIDE RECORDS SUMMARY | 2024-10-24 09:18 | XMS_ITS | Clinical Summary ---
Author Organization [facility] [employer] Address [address] [place] [address] Care Team Providers Care Snuff Grinder Name Role Phone Marlene Fox APRN-X RAY EQUIPMENT SERVICER Primary Care Provider Source Comments [facility] [employer]non-owned Affiliates and Associated Physician Practices is amultiple site organization consisting of ambulatory clinics and hospital sitesin [place], [place], [place] and [place]. This disclosure is being madepursuant to the Care Everywhere program and may not contain all information available regarding this patient. Last updated 18.[facility] [employer] Allergies No known active allergies Medications * [...] this topic Medical Devices Implanted Type Area Relay Record Clerk Device Identifier Shelf Expiration Date Model / Serial / Lot Plate 5 Hl Fib Lt Dist Lat 99mm Contr Implanted:Qty: 1 on 03/04/2023 by Lyndsey Craig MD at [facility] Left: Ankle Synthes Usa .141S / / Screw 3.5mm 6mm 22mm 2.5mm Ft Slf-Tap Implanted:Qty: 1 on 03/04/2023 by Lyndsey Craig MD at [facility] Left: Ankle Synthes Usa 204.822 / / Screw 2.7mm 2.1mm 20mm T8 Slf-Tap Lck Implanted:Qty: 2 on 03/04/2023 by Lyndsey Craig MD at [facility] Left: Ankle Synthes Usa 202.220 / / Screw 2.7mm 2.1mm 24mm T8 Slf-Tap Lck Implanted:Qty: 2 on 03/04/2023 by Lyndsey Craig MD at [facility] Left: Ankle Synthes Usa 202.224 / / Screw 3.5mm 6mm 18mm Ft [place] Slf-Tap Sm Implanted:Qty: 1 on 03/04/2023 by Lyndsey Craig MD at [facility] Left: Ankle Synthes Usa 204.818 / / Explanted Type Area Relay Record Clerk Device Identifier Shelf Expiration Date Model / Serial / Lot Screw 2.7mm 5mm 26mm T8 Slf-Tap Strdr Explanted:Qty: 1 on 03/04/2023 by Lyndsey Craig MD at [facility] Left: Ankle Synthes Usa 202.886 / / Screw 2.7mm 2.1mm 24mm T8 Slf-Tap Lck Explanted:Qty: 1 on 03/04/2023 by Lyndsey Craig MD at [facility] Left: Ankle Synthes Usa 202.224 / / Care Teams Snuff Grinder Relationship Specialty Start Date End Date Marlene Fox, RESOURCE FORESTER-X RAY EQUIPMENT SERVICER [address] [place] [id number] PCP - General 06/18/16
--- OUTSIDE RECORDS SUMMARY | 2024-10-24 09:18 | XMS_ITS | Encounter Summary ---
Author Organization [facility] Healthcare Address [address] [place] [address] Care Team Providers Care Electronics Test Engineer Name Role Phone Nai Ramirez NP Unavailable [phone] Nai Ramirez NP Primary Care Provider [phone] Vinh Chicas MD Unavailable Encounter Details Date Type Department Care Team (Late st Contact Info) Description 10/02/2024 Orders Only [facility] Health Information Management [address] [place] [address] Scanning, Provider Social History Tobacco Use [...] often do you attend chur ch or uatsdin services? Never 03/18/2023 Do you belong to [...] on file Legal Sex Male 3:57 PM COST ESTIMATING CLERK Gender Identity Male 01/08/2020 9:10 AM [...] on filedocumented in this encounter Care Teams Electronics Test Engineer Relationship Specialty Start Date End Date Nai Ramirez NP [address] [place] [address] PCP - General Internal Medicine 04/18/23 Vinh Chicas MD [address] [place] [address] PCP - Cardiology Cardiovascular Disease 06/03/23 Nai Ramirez NP 04/28/19 documented as of this encounter
--- OUTSIDE RECORDS SUMMARY | 2024-10-24 09:18 | XMS_ITS | Encounter Summary ---
Author Organization [facility] Facility Care Team Providers Care Acid Purifier Name Role Phone Rebel Jin MD Primary Care Provider [phone] Nai Ramirez FEDERAL APPELLATE CLERK Primary Care Provider [phone] Rahul Marshall MD Primary Care Provider [phone] Nai Ramirez FEDERAL APPELLATE CLERK Unavailable [phone] Rebel Jin MD Primary Care Provider [phone] Nai Ramirez FEDERAL APPELLATE CLERK Primary Care Provider [phone] Nai Ramirez FEDERAL APPELLATE CLERK Primary Care Provider [phone] Nai Ramirez FEDERAL APPELLATE CLERK Primary Care Provider [phone] Vinh Chicas MD Unavailable Encounter Details Date Type Department Care Team (Latest Contact Info) Description 10/01/2017 Orders Only [facility]CON[facility] ProviderHailee MD [address] [place] [address] Social History Tobacco Use Types Packs/Day Years Used Date Smoking Tobacco: Former Sex and Gender Information Value Date Recorded Sex Assigned at Not on file Legal Sex Male 3:57 PM 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 us Historical Provider Final Res ult documented in this encounter Visit Diagnoses Not on filedocumented in this encounter Additional Health Concerns Infection Onset Date Last Indicated Resolved Time COVID: Suspected 10/16/2022 10/16/2022 10/16/2022 4:55 PM STEWARD/STEWARDESS CHIEF CARGO VESSEL documented as of this encounter Care Teams Acid Purifier Relationship Specialty Start Date End Date Rebel Jin MD [facility] [facility] [place] [address] PCP - General 01/20/18 10/14/18 Nai Ramirez NP [address] [place] [address] [place] [address] PCP - General 10/15/18 04/27/19 Rahul Marshall MD [address] [place] [address] [place] [address] PCP - General 04/28/19 05/14/19 Rebel Jin MD [address] [place] [address] [place] [address] PCP - General Internal Medicine 05/15/19 10/06/19 Nai Ramirez NP [address] [place] [address] [place] [address] PCP - General 10/31/19 04/17/23 Nai Ramirez NP [address] [facility] [place] [address] PCP - General 10/07/19 10/30/19 Nai Ramirez, CHRIS [address] [place] [address] PCP - General Internal Medicine 04/18/23 Vinh Chicas MD [address] [place] [address] PCP - Cardiology Cardiovascular Disease 06/03/23 Nai Ramirez, FEDERAL APPELLATE CLERK [address] [facility] [place] [address] 04/28/19 documented as of this encounter
--- OUTSIDE RECORDS SUMMARY | 2024-10-24 09:18 | XMS_ITS | Encounter Summary ---
Author Organization [facility] Facility Care Team Providers Care Care Tech Name Role Phone Rebel Jin MD Primary Care Provider [phone] Nai Ramirez REFRIGERATOR CAR ICER Primary Care Provider [phone] Rahul Marshall MD Primary Care Provider [phone] Nai Ramirez REFRIGERATOR CAR ICER Unavailable [phone] Rebel Jin MD Primary Care Provider [phone] Nai Ramirez REFRIGERATOR CAR ICER Primary Care Provider [phone] Nai Ramirez REFRIGERATOR CAR ICER Primary Care Provider [phone] Nai Ramirez REFRIGERATOR CAR ICER Primary Care Provider [phone] Vinh Chicas MD Unavailable Encounter Details Date Type Department Care Team (Latest Contact Info) Description 05/08/2018 Orders Only [facility] CLINCON[facility] ProviderHailee MD [address] [place] [address] Social History Tobacco Use Types Packs/Day Years Used Date Smoking Tobacco: Former Sex and Gender Information Value Date Recorded Sex Assigned at Not on file Legal Sex Male 3:57 PM MUSIC COMPOSITION TEACHER Gender Identity Male 01/08/2020 9:10 AM CDT [...] COVID: Suspected 10/16/2022 10/16/2022 10/16/2022 4:55 PM MUSIC COMPOSITION TEACHER documented as of this encounter Care Teams Care Tech Relationship Specialty Start Date End Date Rebel Jin MD [facility] [facility] [place] [address] PCP - General 01/20/18 10/14/18 Nai Ramirez NP [address] [place] [address] [place] [address] PCP - General 10/15/18 04/27/19 Rahul Marshall MD [address] [place] [address] [place] [address] PCP - General 04/28/19 05/14/19 Rebel Jin MD [address] [place] [address] [place] [address] PCP - General Internal Medicine 05/15/19 10/06/19 Nai Ramirez NP [address] [place] [address] [place] [address] PCP - General 10/31/19 04/17/23 Nai Ramirez NP [address] [facility] [address] [place] [address] PCP - General 10/07/19 10/30/19 Nai Ramirez, REFRIGERATOR CAR ICER [address] [place] [address] PCP - General Internal Medicine 04/18/23 Vinh Chicas MD [address] [place] [address] PCP - Cardiology Cardiovascular Disease 06/03/23 Nai Ramirez, REFRIGERATOR CAR ICER [address] [facility] [place] [address] 04/28/19 documented as of this encounter
--- OUTSIDE RECORDS SUMMARY | 2024-10-24 09:18 | XMS_ITS | Encounter Summary ---
Author Organization [facility] Facility Care Team Providers Care Wiring Inspector Name Role Phone Rebel Jin MD Primary Care Provider [phone] Nai Ramirez ASSISTANT CLINICAL NURSE MANAGER Primary Care Provider [phone] Rahul Marshall MD Primary Care Provider [phone] Nai Ramirez ASSISTANT CLINICAL NURSE MANAGER Unavailable [phone] Rebel Jin MD Primary Care Provider [phone] Nai Ramirez ASSISTANT CLINICAL NURSE MANAGER Primary Care Provider [phone] Nai Ramirez ASSISTANT CLINICAL NURSE MANAGER Primary Care Provider [phone] Nai Ramirez ASSISTANT CLINICAL NURSE MANAGER Primary Care Provider [phone] Vinh Chicas MD Unavailable Encounter Details Date Type Department Care Team (Latest Contact Info) Description 01/10/2016 Orders Only [facility] CLINCONV ProviderHailee MD [address] [place] [address] Social History Tobacco Use Types Packs/Day Years Used Date Smoking Tobacco: Former Sex and Gender Information Value Date Recorded Sex Assigned at Not on file Legal Sex Male 3:57 PM 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 HAND Gender Identity Male 01/08/2020 9:10 AM [...] COVID: Suspected 10/16/2022 10/16/2022 10/16/2022 4:55 PM 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 HAND documented as of this encounter Care Teams Wiring Inspector Relationship Specialty Start Date End Date Rebel Jin MD [facility] [facility] [place] [address] PCP - General 01/20/18 10/14/18 Nai Ramirez NP [address] [place] [address] [place] [address] PCP - General 10/15/18 04/27/19 Rahul Marshall MD [address] [place] [address] [place] [address] PCP - General 04/28/19 05/14/19 Rebel Jin MD [address] [place] [address] [place] [address] PCP - General Internal Medicine 05/15/19 10/06/19 Nai Ramirez NP [address] [place] [address] [place] [address] PCP - General 10/31/19 04/17/23 Nai Ramirez NP [address] [facility] [address] [place] [address] PCP - General 10/07/19 10/30/19 Nai Ramirez, ASSISTANT CLINICAL NURSE MANAGER [address] [place] [address] PCP - General Internal Medicine 04/18/23 Vinh Chicas MD [address] [place] [address] PCP - Cardiology Cardiovascular Disease 06/03/23 Nai Ramirez, ASSISTANT CLINICAL NURSE MANAGER [address] [facility] [place] [address] 04/28/19 documented as of this encounter
--- OUTSIDE RECORDS SUMMARY | 2024-10-24 09:18 | XMS_ITS | Encounter Summary ---
Author Organization [facility] Facility Care Team Providers Care Intelligence Chief Name Role Phone Rebel Jin MD Primary Care Provider [phone] Nai Ramirez NETWORK MGR Primary Care Provider [phone] Rahul Marshall MD Primary Care Provider [phone] Nai Ramirez NETWORK MGR Unavailable [phone] Rebel Jin MD Primary Care Provider [phone] Nai Ramirez NETWORK MGR Primary Care Provider [phone] Nai Ramirez NETWORK MGR Primary Care Provider [phone] Nai Ramirez NETWORK MGR Primary Care Provider [phone] Vinh Chicas MD Unavailable Encounter Details Date Type Department Care Team (Latest Contact Info) Description 05/20/2018 Orders Only [facility] CLINCONV ProviderHailee MD [address] [place] [address] Social History Tobacco Use Types Packs/Day Years Used Date Smoking Tobacco: Former Sex and Gender Information Value Date Recorded Sex Assigned at Not on file Legal Sex Male 3:57 PM POLICE 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 Gender Identity Male 01/08/2020 9:10 AM CDT [...] COVID: Suspected 10/16/2022 10/16/2022 10/16/2022 4:55 PM POLICE SERGEANT documented as of this encounter Care Teams Intelligence Chief Relationship Specialty Start Date End Date Rebel Jin MD [facility] [place] [address] PCP - General 01/20/18 10/14/18 Nai Ramirez NP [address] [place] [address] [place] [address] PCP - General 10/15/18 04/27/19 Rahul Marshall MD [address] [place] [address] [place] [address] PCP - General 04/28/19 05/14/19 Rebel Jin MD [address] [place] [address] [place] [address] PCP - General Internal Medicine 05/15/19 10/06/19 Nai Ramirez NP [address] [place] [address] [place] [address] PCP - General 10/31/19 04/17/23 Nai Ramirez NP [address] [facility] [address] [place] [address] PCP - General 10/07/19 10/30/19 Nai Ramirez, NETWORK MGR [address] [place] [address] PCP - General Internal Medicine 04/18/23 Vinh Chicas MD [address] [place] [address] PCP - Cardiology Cardiovascular Disease 06/03/23 Nai Ramirez, NETWORK MGR [address] [facility] [place] [address] 04/28/19 documented as of this encounter
--- OUTSIDE RECORDS SUMMARY | 2024-10-24 09:18 | XMS_ITS | Encounter Summary ---
Author Organization [facility] Facility Care Team Providers Care Managing Member Name Role Phone Rebel Jin MD Primary Care Provider [phone] Nai Ramirez DOCK OR PIER LABORER Primary Care Provider [phone] Rahul Marshall MD Primary Care Provider [phone] Nai Ramirez DOCK OR PIER LABORER Unavailable [phone] Rebel Jin MD Primary Care Provider [phone] Nai Ramirez DOCK OR PIER LABORER Primary Care Provider [phone] Nai Ramirez DOCK OR PIER LABORER Primary Care Provider [phone] Nai Ramirez DOCK OR PIER LABORER Primary Care Provider [phone] Vinh Chicas MD Unavailable Encounter Details Date Type Department Care Team (Latest Contact Info) Description 10/10/2016 Orders Only [facility] CLINCONV ProviderHailee MD [address] [place] [address] Social History Tobacco Use Types Packs/Day Years Used Date Smoking Tobacco: Former Sex and Gender Information Value Date Recorded Sex Assigned at Not on file Legal Sex Male 3:57 PM MOBILE SECURITY 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 Gender Identity Male 01/08/2020 9:10 AM CDT [...] COVID: Suspected 10/16/2022 10/16/2022 10/16/2022 4:55 PM MOBILE SECURITY ARCHITECT documented as of this encounter Care Teams Managing Member Relationship Specialty Start Date End Date Rebel Jin MD [address] [facility] [address] [place] [address] PCP - General 01/20/18 10/14/18 Nai Ramirez NP [address] [facility] [place] [address] PCP - General 10/15/18 04/27/19 Rahul Marshall MD [address] [facility] [place] [address] PCP - General 04/28/19 05/14/19 Rebel Jin MD [address] [facility] [place] [address] PCP - General Internal Medicine 05/15/19 10/06/19 Nai Ramirez, CHRIS [address] [facility] [address] [place] [address] PCP - General 10/31/19 04/17/23 Nai Ramirez NP [address] [facility] [address] [place] [address] PCP - General 10/07/19 10/30/19 Nai Ramirez, CHRIS [address] [address] PCP - General Internal Medicine 04/18/23 Vinh Chicas MD [address] [address] PCP - Cardiology Cardiovascular Disease 06/03/23 Nai Ramirez, DOCK OR PIER LABORER [address] [facility] [address] [place] [address] 04/28/19 documented as of this encounter
--- OUTSIDE RECORDS SUMMARY | 2024-10-24 09:18 | XMS_ITS | Referral Summary ---
Author Organization [facility] Address [address] [place] [address] Care Team Providers Care Stripper Shovel Operator Name Role Phone Marlene Fox APRN-SPORTS BROADCASTING INTERNSHIP Primary Care Provider Source Comments [facility],non-owned Affiliates and Associated Physician Practices is amultiple site organization consisting of ambulatory clinics and hospital sitesin [place], [place], [place] and [place]. This disclosure is being madepursuant to the Care Everywhere program and may not contain all information available regarding this patient. Last updated 18.[email or web address] Allergies No known active allergies Medications * [...] on file Medical Devices Implanted Type Area Engineer Gas Pumping Station Device Identifier Shelf Expiration Date Model / Serial / Lot Plate 5 Hl Fib Lt Dist Lat 99mm Contr Implanted:Qty: 1 on 03/04/2023 by Lyndsey Craig MD at [facility] Left: Ankle Synthes Usa [id number] / / Screw 3.5mm 6mm 22mm 2.5mm Ft Slf-Tap Implanted:Qty: 1 on 03/04/2023 by Lyndsey Craig MD at [facility] Left: Ankle Synthes Usa 204.822 / / Screw 2.7mm 2.1mm 20mm T8 Slf-Tap Lck Implanted:Qty: 2 on 03/04/2023 by Lyndsey Craig MD at [facility] Left: Ankle Synthes Usa 202.220 / / Screw 2.7mm 2.1mm 24mm T8 Slf-Tap Lck Implanted:Qty: 2 on 03/04/2023 by Lyndsey Craig MD at [facility] Left: Ankle Synthes Usa 202.224 / / Screw 3.5mm 6mm 18mm Ft [place] Slf-Tap Sm Implanted:Qty: 1 on 03/04/2023 by Lyndsey Craig MD at [facility] Left: Ankle Synthes Usa 204.818 / / Explanted Type Area Engineer Gas Pumping Station Device Identifier Shelf Expiration Date Model / Serial / Lot Screw 2.7mm 5mm 26mm T8 Slf-Tap Strdr Explanted:Qty: 1 on 03/04/2023 by Lyndsey Craig MD at [facility] Left: Ankle Synthes Usa 202.886 / / Screw 2.7mm 2.1mm 24mm T8 Slf-Tap Lck Explanted:Qty: 1 on 03/04/2023 by Lyndsey Craig MD at [facility] Left: Ankle Synthes Usa 202.224 / / Care Teams Stripper Shovel Operator Relationship Specialty Start Date End Date Marlene Fox, NEON SIGN INSTALLER-SPORTS BROADCASTING INTERNSHIP [address] [facility] [place] [address] PCP - General 06/18/16
--- OUTSIDE RECORDS SUMMARY | 2024-10-24 09:18 | XMS_ITS | Encounter Summary ---
Author Organization [facility] Facility Care Team Providers Care Oracle Applications Analyst Name Role Phone Rebel Jin MD Primary Care Provider [phone] Nai Ramirez BOWLING ALLEY FLOORS INSTALLER Primary Care Provider [phone] Rahul Marshall MD Primary Care Provider [phone] Nai Ramirez BOWLING ALLEY FLOORS INSTALLER Unavailable [phone] Rebel Jin MD Primary Care Provider [phone] Nai Ramirez BOWLING ALLEY FLOORS INSTALLER Primary Care Provider [phone] Nai Ramirez BOWLING ALLEY FLOORS INSTALLER Primary Care Provider [phone] Nai Ramirez BOWLING ALLEY FLOORS INSTALLER Primary Care Provider [phone] Vinh Chicas MD Unavailable Encounter Details Date Type Department Care Team (Latest Contact Info) Description 04/16/2018 Orders Only [facility] CLINCONV ProviderHailee MD [address] [place] [address] Social History Tobacco Use Types Packs/Day Years Used Date Smoking Tobacco: Former Sex and Gender Information Value Date Recorded Sex Assigned at Not on file Legal Sex Male 3:57 PM ENGINEER STEAM Gender Identity Male 01/08/2020 9:10 AM CDT [...] COVID: Suspected 10/16/2022 10/16/2022 10/16/2022 4:55 PM ENGINEER STEAM documented as of this encounter Care Teams Oracle Applications Analyst Relationship Specialty Start Date End Date Rebel Jin MD [facility] [place] [address] PCP - General 01/20/18 10/14/18 Nai Ramirez NP [address] [place] [address] [place] [address] PCP - General 10/15/18 04/27/19 Rahul Marshall MD [address] [place] [address] [place] [address] PCP - General 04/28/19 05/14/19 Rebel Jin MD [address] [place] [address] [place] [address] PCP - General Internal Medicine 05/15/19 10/06/19 Nai Ramirez NP [address] [place] [address] [place] [address] PCP - General 10/31/19 04/17/23 Nai Ramirez NP [address] [facility] [address] [place] [address] PCP - General 10/07/19 10/30/19 Nai Ramirez, BOWLING ALLEY FLOORS INSTALLER [address] [place] [address] PCP - General Internal Medicine 04/18/23 Vinh Chicas MD [address] [place] [address] PCP - Cardiology Cardiovascular Disease 06/03/23 Nai Ramirez, BOWLING ALLEY FLOORS INSTALLER [address] [facility] [place] [address] 04/28/19 documented as of this encounter
[2024-10-24 09:21] LABS: Alanine Aminotransferase 16 U/L (6-50); Alkaline Phosphatase 84 U/L (38-126); Anion Gap 12 mmol/L (4-12); Aspartate Amino Transferase 19 U/L (17-59); Bilirubin,Total 0.5 mg/dL (0.2-1.3); Blood Urea Nitrogen 18 mg/dL (9-20); Calcium 9.1 mg/dL (8.4-10.2); Carbon Dioxide 20 mmol/L (22-30); Chloride 105 mmol/L (98-107); Estimated CRCL calculation 89 ml/min; Estimated Glomerular Filt Rate > 60; Glucose 111 mg/dL (65-110); Potassium 4.1 mmol/L (3.4-5.0); Sodium 137 mmol/L (137-145)
[2024-10-24 09:23] LABS: Add Urine Microscopic? YES; Appearance Urine Clear (Clear); Bacteria Urine None Seen /hpf; Bilirubin Urine Negative (Negative); Blood Urine Negative (Negative); Color Urine Dark Yellow (Yellow); Glucose Urine UA Negative (Negative); Ketones Urine Trace mg/dL (Negative); Leukocyte Esterase Ur Negative LEU/UL (Negative); Nitrate Urine Negative (Negative); Non Pathogenic Casts 0-2; Protein Urine Trace mg/dL (Negative); Specific Grav Ur 1.023 (1.001-1.035); Squamous Epithelial Cell Urine None Seen /hpf (Few); WBC Urine 0-5 /hpf (0-3)
[2024-10-24 09:49] LABS: Influenza A QL RT-PCR Positive (Negative); Influenza B QL RT-PCR Negative (Negative); RSV RNA, RT-PCR Negative (Negative); SARS-CoV-2 RNA PCR Negative (Negative)
[2024-10-24 10:14] VITALS: BP 131/77; PULSE 57
[2024-10-24 10:15] VITALS: BP 131/80; PULSE 58
[2024-10-24 10:16] VITALS: BP 122/76; PULSE 66
[2024-10-24 10:40] VITALS: BP 113/85; PULSE 60; RESP 18; O2SAT 96
== END 2024-10-24 10:41 | disposition home or self-care (01) ==
PROVIDERS: Emergency Provider Emergency Medicine; PCP Internal Medicine
DX: I95.1 Orthostatic hypotension (principal); S09.90XA Unspecified injury of head, initial encounter; J10.1 Influenza due to other identified influenza virus with other respiratory manifestations; Z20.822 Contact with and (suspected) exposure to COVID-19; M47.812 Spondylosis without myelopathy or radiculopathy, cervical region; W01.198A Fall on same level from slipping, tripping and stumbling with subsequent striking against other object, initial encounter; R94.31 Abnormal electrocardiogram [ECG] [EKG]
CPT/HCPCS: 36415; 70450; 72125; 80053; 81001; 85025; 87637; 93005; 96360; 99284; J7030